=== PATIENT | female | born 1960 | race Caucasian/White ===

== ENCOUNTER → 2017-09-02 09:13 | Outpatient (CLI) | payer OTHER, SELFPAY ==
--- NOTE | 2017-09-02 08:00 | PET_ITS ---
EXAMINATION: FDG PET CT INDICATIONS: A 57-year-old female with reported history of pulmonary nodularity. COMPARISON EXAMINATION: CT of the chest report dated 08/20/17. INDEX LESION SIZE SUV INTERPRETATION Right upper hemithorax pulmonary parenchyma, right upper lobe 25.3 mm (frame 192) 1.0 Quantitative criteria for viable neoplasm are not fulfilled, sequential radiologic investigation recommended TECHNIQUE: Following the intravenous administration of 13.02 mCi of F-18 deoxyglucose via the left antecubital fossa, multiplanar image acquisitions of the neck, chest, abdomen and pelvis to level of mid thigh, obtained at one hour post radiopharmaceutical administration contemporaneously interpreted with the current CT of the neck, chest, abdomen and pelvis to level of mid thigh, dated 09/02/[address] of the chest report dated 08/20/17 reveal: SERUM GLUCOSE LEVEL: 79 mg/dl. HEIGHT: 66 inches. WEIGHT: 138 lbs. FINDINGS: 1. Mild, relatively linear increased glucose concentration is demonstrated in the right upper posterior hemithorax pulmonary parenchyma, right upper lobe generating a calculated maximum standard uptake value of 1.0. The maximal axial diameter of the corresponding parenchymal density on review of CT of the thorax dated 09/02/17 is 25.3 mm (transverse). 2. Normal physiologic distribution of the radiopharmaceutical is apparent in the hepatic (2.3) and splenic parenchyma, both renal units, bladder and visualized intestinal tract. There is uniform distribution of the radiopharmaceutical concentration compared on the cerebellar hemispheres and cerebral cortex. Diffuse intestinal tract activity is noted throughout all four quadrants of the abdominal-pelvic retroperitoneum, mesentery consistent with normal physiologic distribution of the radiopharmaceutical. Prominent glucose metabolism is defined in the anterior neck, laryngeal structures, which appears contiguous to the cricopharyngeus musculature, symmetric in presentation. There is prominent glucose metabolism defined in the descending thoracic aorta. Pertinent CT findings are as follows. CHEST: Marked Emphysematous change is noted in the bilateral upper-lower lung zones. Atherosclerotic calcification is defined in the thoracic aorta without evidence of dilatation, aneurysm formation. Right-left subcentimeter axillary soft tissue densities are non-glucose avid. ABDOMEN AND PELVIS: Atherosclerotic calcification is defined in the abdominal aorta without evidence of dilatation, aneurysm formation. Pelvic arterial calcification is observed. SKELETAL: Degenerative changes defined in the cervical, thoracic and lumbar spine demonstrate no evidence for glucose hypermetabolism. PET/PET/CT Tumor Base -Thigh Init IMPRESSION: 1. NEGATIVE EXAMINATION. There is no definitive quantitative scintigraphic evidence of viable neoplasm. 2. Mild linear increased glucose concentration demonstrated in the right upper hemithorax pulmonary parenchyma, right upper lobe does not fulfill quantitative criteria for viable neoplasm. (Albarran et al, Annals of Internal Medicine, 138:724, 2003). 3. Metabolic and/or anatomic stability may be ensured in the right hemithorax pulmonary parenchymal abnormality with repeat FDG PET study and/or CT of the thorax in three months. (Xiu, Journal of Nuclear Medicine 45:88, P2004. Eloy, Seminars in Thoracic and Cardiovascular Surgery 14:292, 2002). 4. Facilitated glucose concentration observed in the descending thoracic aorta is commensurate with activated leukocytes associated with atherosclerotic plaque formation. (Cj et al, Clinical Nuclear Medicine 29:93, 2004). Electronic Signature Nathaniel Martines D.O. Electronically Signed: Nathaniel Martines DO at 22:41 EST Tel , Service support ,
== END ==
PROVIDERS: Family Provider Nurse Practitioner Family; PCP Nurse Practitioner Family; Visit Provider Nurse Practitioner Family
DX: R91.1 Solitary pulmonary nodule (principal)
CPT/HCPCS: 78815; A9552; A4216

== ENCOUNTER → 2022-12-24 | Outpatient (CLI) | payer BC, SELFPAY ==
--- NOTE | 2022-12-25 05:58 | PFTCOMP ---
COMPLETE PULMONARY FUNCTION TEST INTERPRETATION Brief HPI: Patient is a 62-year-old female, currently under the care of myself, who presents to [facility] for complete pulmonary function tests secondary to diagnosis of COPD. Respiratory therapist reports good effort and reproducible results. Interpretation: Forced expiration spirometry shows a mild large airways obstructive ventilatory defect with an FEV1 of 71% predicted. There is no significant bronchodilator response by strict ATS criteria. Spirograms are of good quality and plateau slowly, indicating slowly emptying areas of the lungs. The respiratory flow volume loop shows decreased expiratory flow rates at all lung volumes consistent with airway obstruction. Lung volumes by body plethysmography show a normal total lung capacity at 5.8 L, 114% predicted. All other lung volumes are within normal limits. Diffusion capacity by carbon monoxide is decreased at 44% predicted. The airway resistance is elevated. No previous pulmonary function tests were available for review. Impression: Irreversible mild large airways obstructive ventilatory defect with a disproportionate reduction in diffusion capacity
== END | disposition home or self-care (01) ==
LOC: PSN 06:34
PROVIDERS: PCP Student in an Organized Health Care Education/Training Program; Referring Provider Internal Medicine Critical Care Medicine; Visit Provider Internal Medicine Critical Care Medicine
DX: J44.9 Chronic obstructive pulmonary disease, unspecified (principal)
CPT/HCPCS: 94060; 94726; 94729

== ENCOUNTER → 2022-12-27 | Outpatient (CLI) | payer BC, SELFPAY ==
[2022-12-27 08:15] VITALS: PULSE 80; PULSE 87; PULSE 94; PULSE 95; PULSE 97; O2SAT 90; O2SAT 92; O2SAT 93; O2SAT 95; O2SAT 96
--- NOTE | 2022-12-28 08:37 | PCM.PSN.6M ---
PSN 6 Minute Walk Test 6 Minute Walk Test 6 Minute Walk Test: 6 Minute Walk Test PSN:6-Minute Walk Test Start: 12/27/22 08:17 Freq: Status: Active Protocol: [id number] Document 12/27/22 08:15 MANUELA (Rec: 12/27/22 08:20 [id number]) 6 Minute Walk Test Date Performed 12/27/22 Time Performed 08:15 Height 5 ft 5 in Weight: 83.915 kg Weight in Pounds 185.[address]: Case Mejia FIO2 (% Oxygen) 21 Assistive device used: None Pre-test Oxygen Delivery Method Room Air Pulse Ox (%) 96 Pulse Rate (60-100 beats/min) 80 Dyspnea Hung Scale (0-10) 0 Exertion Hung Scale (6-20) 6 1st minute Oxygen Delivery Method Room Air Pulse Ox (%) 95 Pulse Rate (60-100 beats/min) 94 2nd minute Oxygen Delivery Method Room Air Pulse Ox (%) 92 Pulse Rate (60-100 beats/min) 95 3rd minute Oxygen Delivery Method Room Air Pulse Ox (%) 92 Pulse Rate (60-100 beats/min) 94 4th minute Oxygen Delivery Method Room Air Pulse Ox (%) 93 Pulse Rate (60-100 beats/min) 80 5th minute Oxygen Delivery Method Room Air Pulse Ox (%) 90 Pulse Rate (60-100 beats/min) 97 6th minute Oxygen Delivery Method Room Air Pulse Ox (%) 93 Pulse Rate (60-100 beats/min) 97 Post-test Oxygen Delivery Method Room Air Pulse Ox (%) 96 Pulse Rate (60-100 beats/min) 87 Dyspnea Hung Scale (0-10) 2 Exertion Hung Scale (6-20) 6 Full Laps Walked 21 Partial Lap, Number of Tiles Walked 8 Total Distance Walked (ft) 1247 Interpretation Interpretation: The patient was able to travel 1247 feet over the course of 6 minutes on room air with no assistive devices or breaks. The patient did experience significant desaturation from a baseline of 96% to as low as 90%. No significant tachycardia was noted. These findings are consistent with a respiratory limitation exercise tolerance. Recommendations Recommendations: No supplemental oxygen is indicated at this time. However, patient will need to be followed closely given level of desaturation.
== END | disposition home or self-care (01) ==
LOC: PSN 07:51
PROVIDERS: PCP Student in an Organized Health Care Education/Training Program; Referring Provider Internal Medicine Critical Care Medicine; Visit Provider Internal Medicine Critical Care Medicine
DX: J44.9 Chronic obstructive pulmonary disease, unspecified (principal)
CPT/HCPCS: 94618

== ENCOUNTER 2023-05-10 06:49 | Outpatient (CLI) | payer BC, SELFPAY ==
--- NOTE | 2023-05-10 06:54 | CT_ITS ---
ACR Level 3 findings have been noted. An addendum which confirms receipt of the report will follow. STUDY: LOW DOSE CT LUNG CANCER SCREENING REASON FOR EXAM: Female, 63 years old. smoker RADIATION DOSAGE (If Supplied By Facility): CTDIvol = ( 3.02 ) mGy, DLP = ( 99.68 ) mGycm TECHNIQUE: No contrast was administered. Low dose technique was utilized (average mAS-38 and kVp 120). 1.25 mm axial source images with a slice interval of 1.25-mm were reconstructed in lung windows with coronal sagittal reformats. COMPARISON: PET CT September 02, 2017 NODULES: Parenchyma: Chronic left posterior apical surgical suture noted. There is new consolidation in the lateral left upper lobe with new bronchiectasis and volume loss, obscuring assessment for nodularity. Severe diffuse emphysematous change with large apical bulla. Nodular scarring along the posterior right upper lobe 1.4 cm in thickness is unchanged from September 02, 2017 PET/CT without previous FDG avidity. No new or enlarging nodularity within the remainder of the lungs. Endobronchial lesion: No endobronchial lesion. Minimal diffuse peribronchial thickening. Aorta: Mild aortic atherosclerosis without ectasia. CORONARY ARTERIES: Coronary artery calcification. No densely calcified coronary atherosclerosis. Heart: No cardiomegaly or pericardial effusion. Pulmonary artery: No pulmonary arterial enlargement. Mediastinal nodes: No mediastinal or hilar adenopathy. Other chest and abdominal findings: No acute upper abdominal finding. Small hiatal hernia. Esophagus is unremarkable. Imaged thyroid is unremarkable. CT/Low Dose CT Lung Screening IMPRESSION: New left superior upper lobe consolidation concerning for pneumonia with underlying bronchiectasis. Correlate with exam. This makes screening for lung cancer incomplete. Pulmonary follow-up is recommended with repeat CT screening in 1-3 months. No significant interval change in nodular scarring in the posterior right upper lobe compared with prior PET/CT Severe emphysematous change. Small hiatal hernia. Lung-RADS category 0 - Additional lung cancer screening CT images and/or comparison to prior chest CT examination is needed. IMPORTANT NOTES FOR USE: ACR Lung-RADS Version 1.1 Assessment Categories Release Date: 2018 Category: Coded 0-4 bases on nodule(s) with highest degree of suspicion. Negative screen is defined as categories 1 and 2; a positive screen is defined as categories 3 and 4. Category 3 and 4A nodules that are unchanged on interval CT should be coded as category 2, and individuals returned to screening in 12 months. Category 4X: Category 3 or 4 nodules with additional imaging findings that increase the suspicion of lung cancer, such as spiculation, GGN that doubles in size in 1 year, enlarged lymph notes, etc. Category Modifiers: S (significant finding unrelated to lung cancer) Electronically Signed: Sukhjinder Nguyen MD at 8:14 EDT ,
== END 2023-05-10 23:59 | disposition home or self-care (01) ==
LOC: CT 06:50
PROVIDERS: PCP Student in an Organized Health Care Education/Training Program; Referring Provider Nurse Practitioner Acute Care; Visit Provider Nurse Practitioner Acute Care
DX: Z12.2 Encounter for screening for malignant neoplasm of respiratory organs (principal); F17.210 Nicotine dependence, cigarettes, uncomplicated
CPT/HCPCS: 71271

== ENCOUNTER → 2024-05-20 | Outpatient (CLI) | payer BC, SELFPAY ==
--- NOTE | 2024-05-20 06:54 | CT_ITS ---
STUDY: LOW DOSE CT LUNG CANCER SCREENING REASON FOR EXAM: Female, 64 years old. Former smoker. The patient smoked 1 pack per day for 30 years. RADIATION DOSAGE (If Supplied By Facility): CTDIvol = ( 3.02 ) mGy, DLP = ( 110.23 ) mGycm TECHNIQUE: No contrast was administered. Low dose technique was utilized (average mAS-38 and kVp 120). 1.25 mm axial source images with a slice interval of 1.25-mm were reconstructed in lung windows. 2.5 mm axial source images with a slice interval of 2.5-mm were reconstructed in lung windows. 5.0 mm axial source images with a slice interval of 5.0-mm were reconstructed in soft tissue windows. COMPARISON: Comparison is made with prior study May 10, 2023. NODULES: No suspicious nodules are seen. Emphysema: Hyperinflation. Diffuse emphysematous changes worse in the upper lobes with bullous formation. Stable scarring and bronchiectasis and soft tissue prominence in both lung apices worse on the left side. Focal thickening along the right minor fissure. Endobronchial lesion: None Aorta: Atherosclerotic plaque formation of the aortic arch. CORONARY ARTERIES: Coronary artery calcification is seen. Heart: Unremarkable Pulmonary artery: Unremarkable Mediastinal nodes: Unremarkable Other chest and abdominal findings: CT/Low Dose CT Lung Screening IMPRESSION: Lung-RADS category 2 - Continue annual screening with LDCT in 12 months. IMPORTANT NOTES FOR USE: ACR Lung-RADS Version 1.1 Assessment Categories Release Date: 2018 Category: Coded 0-4 bases on nodule(s) with highest degree of suspicion. Negative screen is defined as categories 1 and 2; a positive screen is defined as categories 3 and 4. Category 3 and 4A nodules that are unchanged on interval CT should be coded as category 2, and individuals returned to screening in 12 months. Category 4X: Category 3 or 4 nodules with additional imaging findings that increase the suspicion of lung cancer, such as spiculation, GGN that doubles in size in 1 year, enlarged lymph notes, etc. Category Modifiers: S (significant finding unrelated to lung cancer) Electronically Signed: Jose Manuel Metz MD at 10:42 EST ,
== END | disposition home or self-care (01) ==
PROVIDERS: PCP Student in an Organized Health Care Education/Training Program; Referring Provider Nurse Practitioner Acute Care; Visit Provider Nurse Practitioner Acute Care
DX: F17.210 Nicotine dependence, cigarettes, uncomplicated (principal)
CPT/HCPCS: 71271

== ENCOUNTER → 2024-12-25 | Outpatient (CLI) | payer BC, SELFPAY ==
--- OUTSIDE RECORDS SUMMARY | 2024-12-25 08:25 | XMS RPT_ITS | CCD ---
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 Case Mejia Attending Provider [phone] Case Mejia Referring Provider [phone] Case Mejia Other Provider Dr. Paty Veronica Primary Care Provider [phone] Clayton GALE, GREASE MAN-C Rochelle Referring Provider [phone] Dr. Case Mejia Attending Provider [phone] Paty Veronica Primary Care Provider [phone] Dr. Paty Veronica Referring Provider [phone] Cierra GREASE MAN, GREASE MAN-C Gay Attending Provider [phone] PATY VERONICA Attending Unavailable HALKO, PATY Primary Care Unavailable HALKO, PATY Attending Unavailable HALKO, PATY Primary Care Unavailable EDNA CHANG DO Attending Unavailable HALKO, PATY Primary Care Unavailable HALKO, PATY Attending Unavailable HALKO, PATY Primary Care Unavailable HALKO DO, PATY Primary Care Unavailable HALKO DO, PATY Attending Unavailable HALKO DO, PATY Primary Care Unavailable HALKO DO, PATY Attending Unavailable HALKO DO, PATY Attending Unavailable HALKO DO, PATY Primary Care Unavailable HALKO DO, PATY Attending Unavailable HALKO DO, PATY Primary Care Unavailable HALKO DO, PATY Attending Unavailable HALKO DO, PATY Primary Care Unavailable HALKO DO, PATY Primary Care Unavailable HALKO DO, PATY Attending Unavailable Gay Norton Attending Unavailable Gay Norton Referring Unavailable Halko, Paty Primary Care Unavailable Carolyne Johnson Attending Unavailable Carolyne Johnson Referring Unavailable Halko, Paty Primary Care Unavailable Carolyne Johnson Attending Unavailable Carolyne Johnson Referring Unavailable Paty Veronica Primary Care Unavailable Carolyne Johnson Attending Unavailable Paty Veronica Referring Unavailable Paty Veronica Primary Care Unavailable Medications Current Medications Medication Drug Class(es) Dates Sig (Normalized) Sig (Original) Albuterol (12 sources) beta2-Adrenergic Agonist Start: 05-01-2024 take 2 puff(s) by inhalation four times daily as needed for wheezing Ventolin HFA MDI (90 mcg/inh) inhalation aerosol 2 puff(s), Inhalation, QID, PRN as needed for wheezing, # 6.7 gram(s), 5 Refill(s), Pharmacy: [facility], 161, cm, 12/11/23 14:16:00 EDT, Height, kg, 12/11/23 14:16:00 EDT, Dosing Weight Start Date: 05/01/24 Status: Ordered Quantity: 6.7 Unit: g Repeat number: 6 Start: 08-16-2023 take 2 puff(s) by in halation four times daily as needed for wheezing Ventolin HFA MDI (90 mcg/inh) inhalation aerosol 2 puff(s), Inhalation, QID, PRN as needed for wheezing, # 6.7 gram(s), 5 Refill(s), Pharmacy: [facility], 165, cm, 08/16/23 10:41:00 EST, Height, kg, 08/16/23 10:41:00 EST, Dosing Weight Start Date: 08/16/23 Status: Ordered Start: 07-30-2022 take 1 puff(s) by in halation every six hours Albuterol Sulfate (Ventolin Hfa) 90 mcg/actuation HFA aerosol inhaler Active 2 PUFF INHALATION EVERY 6 HOURS July 30, 2022 12:00am Start: 05-02-2022 End: 10-29-2022 take 2 puff(s) by inhalation four times daily as needed for wheezing Ventolin HFA MDI (90 mcg/inh) inhalation aerosol 2 puff(s), Inhalation, QID, PRN as needed for wheezing, # 1 EA, 5 Refill(s), Pharmacy: [facility], 165, cm, 05/02/22 7:53:00 EDT, Height, kg, 05/02/22 7:53:00 EDT, Dosing Weight Start Date: 05/02/22 Stop Date: 10/29/22 Status: Ordered Start: 10-31-2021 End: 04-29-2022 take 2 puff(s) by inhalation four times daily as needed for wheezing Ventolin HFA MDI (90 mcg/inh) inhalation aerosol 2 puff(s), Inhalation, QID, PRN as needed for wheezing, # 1 EA, 5 Refill(s), Pharmacy: [facility], 165, cm, 10/31/21 9:07:00 EDT, Height, kg, 10/31/21 9:07:00 EDT, Dosing Weight Start Date: 10/31/21 Stop Date: 04/29/22 Status: Ordered Ascorbic Acid (3 sources) Vitamin C Start: 07-30-2022 take 1 g by mouth every six hours Ascorbic Acid (Vitamin C) Active 1 GM PO EVERY 6 HOURS July 30, 2022 12:00am Start: 07-30-2022 take 1 g by mouth ev jessica six hours Ascorbic Acid (Vitamin C) Active 1 GM PO EVERY 6 HOURS July 30, 2022 1:00am aspirin 81 mg chewable tablet (12 sources) Platelet Aggregation Inhibitor, Nonsteroidal Anti-inflammatory Drug Start: 07-30-2022 take 1 tablet by mouth once daily Aspirin (Children's Aspirin) 81 mg tablet,chewable Active 81 MG PO DAILY July 30, 2022 12:00am Start: 12-26-2019 aspirin 81 mg oral tablet (chewable) Dose : 81 mg = 1 tab(s), Oral, qDay, # 30 tab(s), 0 Refill(s) Start Date: 12/26/19 Status: Ordered Quantity: 30.0 Unit: tab(s) Repeat number: 1 Calcium 600+D Plus Minerals (9 sources) Start: 05-02-2021 Calcium 600+D Plus Minerals Dose = 1 tab(s), Chewed, qDay, 0 Refill(s) Start Date: 05/02/21 Status: Ordered Repeat number: 1 Start: 05-02-2021 Calcium 600+D Plus Minerals Dose = 1 tab(s), Chewed, qDay, 0 Refill(s) Start Date: 05/02/21 Status: Ordered Calcium Carb-Mag Ox-Zinc Gluc (1 source) Start: 04-17-2023 Calcium Carb-M ag Ox-Zinc Gluc Active TABLET PO April 16, 2023 11:00pm Calcium, Magnesium and Zinc oral tablet (7 sources) Start: 05-02-2022 take 1 tablet by mouth once daily Calcium, Magnesium and Zinc oral tablet Dose = 1 tab(s), Oral, qDay, # 30 tab(s), 0 Refill(s) Start Date: 05/02/22 Status: Ordered Quantity: 30.0 Unit: tab(s) Repeat number: 1 Start: 05-02-2022 take 1 tablet by soledad th once daily Calcium, Magnesium and Zinc oral tablet Dose = 1 tab(s), Oral, qDay, # 30 tab(s), 0 Refill(s) Start Date: 05/02/22 Status: Ordered cholecalciferol 0.025 mg oral capsule (3 sources) Vitamin D Start: 07-30-2022 take 25 ug by mouth once daily Cholecalciferol (Vitamin D3) Active 25 MCG PO DAILY July 30, 2022 12:00am dextromethorphan hydrobromide 3 mg/ml / promethazine hydrochloride 1.25 mg/ml oral solution (3 sources) Phenothiazine, Uncompetitive [id number]-quuahp-Z-asparta te Receptor Antagonist, Sigma-1 Agonist Start: 06-06-2021 take 1 dose by mouth every six hours as needed for cough dextromethorphan-pro methazine 15 mg-6.25 mg/5 mL oral syrup Dose = 5 mL, Oral, q6h, PRN for cough, # 120 mL, 0 Refill(s), Pharmacy: [facility]12, 166, cm, 05/02/21 9:00:00 EDT, Height, kg, 05/02/21 9:00:00 EDT, Dosing Weight Start Date: 06/06/21 Status: Ordered Fluticasone-Umeclidin -Vilanter (1 source) Anticholinergic, Corticosteroid, beta2-Adrenergic Agonist Start: 01-14-2023 Fluticasone-Umeclidi n-Vilanter (Trelegy Ellipta) 100-62.5-25 mcg blister with device Active 1 INH INHALATION DAILY 60 January 13, 2023 11:00pm 12 hr guaiFENesin 600 mg extended release oral tablet (12 sources) Start: 07-13-2024 take 1 mg by mouth every twelve hours Mucinex 600 mg oral tablet, extended release mg = tab(s), Oral, q12h, 0 Refill(s) Start Date: 07/13/24 Status: Ordered Repeat number: 1 Start: 08-16-2023 End: 02-12-2024 Mucinex 600 mg oral tablet, extended release Dose : 600 mg = 1 tab(s), Oral, q12h, X 90 day(s), # 180 tab(s), 1 Refill(s), 02/12/24 11:08:00 AM EDT, Pharmacy: [facility], 165, cm, 08/16/23 10:41:00 EST, Height, kg, 08/16/23 10:41:00 EST, Dosing Weight Start Date: 08/16/23 Stop Date: 02/12/24 Status: Ordered Start: 04-17-2023 take 1 mg by mouth e very twelve hours Guaifenesin (Mucus Relief Er) 600 mg tablet extended release 12hr Active MG PO April 16, 2023 11:00pm Start: 05-02-2022 End: 10-29-2022 take 1 tablet by mouth twice daily, then take 1 tablet by mouth every twelve hours Guaifenesin (Mucinex) 600 mg tablet extended release 12hr Discontinued 600 MG PO TWICE A DAY July 30, 2022 12:00am July 31, 2022 7:44am herbal/nutritional product (4 sources) Start: 07-13-2024 herbal/nutriti onal product Smarter Greens - digestion, increase nitric oxide, 0 Refill(s) Start Date: 07/13/24 Status: Ordered Repeat number: 1 Start: 07-13-2024 herbal/nutriti onal product Total Beets - blood pressure support, 0 Refill(s) Start Date: 07/13/24 Status: Ordered Repeat number: 1 ibuprofen 200 mg oral capsule (12 sources) Nonsteroidal Anti-inflammatory Drug Start: 01-31-2021 take 1 capsule by mouth every six hours ibuprofen 200 mg oral capsule See Instructions, cap(s) mg Oral q6hr, 0 Refill(s) Start Date: 01/31/21 Status: Ordered Repeat number: 1 mag well (6 sources) Start: 06-20-2020 mag well mag well, 0 Refill(s), 78.2 Start Date: 06/20/20 Status: Ordered magnesium oxide 400 mg oral tablet (11 sources) Start: 05-02-2022 magnesium oxide 400 mg oral tablet Dose : 400 mg = 1 tab(s), Oral, qDay, 0 Refill(s) Start Date: 05/02/22 Status: Ordered Repeat number: 1 Start: 05-02-2021 Magnesium 250 mg tablet Dose : 250 mg = 1 tab(s), Oral, qDay, 0 Refill(s) Start Date: 05/02/21 Status: Ordered Multivitamin preparation (12 sources) Start: 07-30-2022 take 1 tablet by mouth once daily Multivitamin Active 1 TABLET PO DAILY July 30, 2022 12:00am Start: 07-30-2022 take 1 tablet by soledad th once daily Multivitamin Active 1 TABLET PO DAILY July 30, 2022 1:00am Start: 12-12-2020 take 1 tablet by soledad th once daily Multivitamin Dose = 1 tab(s), Oral, Daily, 0 Refill(s) Start Date: 12/12/20 Status: Ordered Repeat number: 1 Start: 12-12-2020 take 1 tablet by soledad th once daily Multivitamin Dose = 1 tab(s), Oral, Daily, 0 Refill(s) Start Date: 12/12/20 Status: Ordered Multivitamin With Minerals (3 sources) Start: 07-30-2022 take 1 capsule by mouth once daily Multivitamin With Minerals Active 1 CAP PO DAILY July 30, 2022 12:00am Start: 07-30-2022 take 1 capsule by mo uth once daily Multivitamin With Minerals Active 1 CAP PO DAILY July 30, 2022 1:00am Multivitamin-Calcium Carb-Ir on (3 sources) Start: 07-30-2022 Multivitamin-C alcium Carb-Iron Active TABLET PO July 30, 2022 12:00am Start: 07-30-2022 Multivitamin-C alcium Carb-Iron Active TABLET PO July 30, 2022 1:00am ofloxacin 3 mg/ml ophthalmic solution (2 sources) Quinolone Antimicrobial Start: 08-20-2024 ofloxacin 0.3% ophthalmic solution INSTILL 1 DROP INTO RIGHT EYE 4 TIMES DAILY 3 DAYS PRIOR TO SURGERY AND CONTINUING 4 TIMES DAILY AFTER SURGERY Start Date: 08/20/24 Status: Ordered Repeat number: 1 rosuvastatin calcium 20 mg oral tablet (3 sources) HMG-CoA Reductase Inhibitor Start: 07-13-2024 rosuvastatin 20 mg oral tablet Dose : 20 mg = 1 tab(s), Oral, qHS, # 90 tab(s), 1 Refill(s), Pharmacy: [facility], 161, cm, 07/13/24 13:30:00 EST, Height, kg, 07/13/24 13:30:00 EST, Dosing Weight Start Date: 07/13/24 Status: Ordered Quantity: 90.0 Unit: tab(s) Repeat number: 2 sodium polystyrene sulfonate 250 mg/ml oral suspension (2 sources) Start: 10-19-2024 End: 02-07-2025 take 1 dose by mouth once daily sodium polystyrene sulfonate 15 g/60 mL oral and rectal suspension Dose : 3.75 gram(s) = 15 mL, Oral, qDay, X 30 day(s), # 450 mL, 2 Refill(s), 02/07/25 2:52:00 PM EDT, Pharmacy: [facility], 161.2, cm, 11/09/24 14:14:00 EDT, Height, kg, 11/09/24 14:14:00 EDT, Dosing Weight Start Date: 11/09/24 Stop Date: 02/07/25 Status: Ordered Quantity: 450.0 Unit: mL Repeat number: 3 SUPREP magnesium sulfate/potassium sulfate/sodium sulfate 1.6 g-3.13 g-17.5 g/177 mL oral liquid (3 sources) Start: 08-28-2023 SUPREP magnesi um sulfate/potassium sulfate/sodium sulfate 1.6 g-3.13 g-17.5 g/177 mL oral liquid as directed, Oral, AsDirected, PRN bowel preparation, Take day before colonoscopy as directed, instructions given by office, # 354 mL, 0 Refill(s), Pharmacy: [facility], 165, cm, 08/28/23 10:28:00 EST, Height, kg, 08/28/23 10:28:00 EST, Dosing Weight Start Date: 08/28/23 Status: Ordered tumeric (1 source) Start: 04-17-2023 tumeric Active PO April 16, 2023 11:00pm turmeric extract 500 mg oral capsule (6 sources) Start: 08-16-2023 turmeric 500 m g oral capsule Dose : 500 mg = 1 cap(s), Oral, Daily, 0 Refill(s) Start Date: 08/16/23 Status: Ordered Repeat number: 1 Vitamin C 1000 mg oral tablet (8 sources) Start: 05-02-2022 Vitamin C 1000 mg oral tablet Dose : 1,000 mg = 1 tab(s), Oral, qDay, # 30 tab(s), 0 Refill(s) Start Date: 05/02/22 Status: Ordered Quantity: 30.0 Unit: tab(s) Repeat number: 1 Start: 05-02-2022 Vitamin C 1000 mg oral tablet Dose : 1,000 mg = 1 tab(s), Oral, qDay, # 30 tab(s), 0 Refill(s) Start Date: 05/02/22 Status: Ordered Vitamin D3 25 mcg (1000 intl units) oral capsule (9 sources) Start: 05-02-2021 take 1 capsule by mouth once daily Vitamin D3 25 mcg (1000 intl units) oral capsule See Instructions, 1 cap(s) Oral Daily, 0 Refill(s) Start Date: 05/02/21 Status: Ordered Repeat number: 1 Start: 05-02-2021 take 1 capsule by [facility] once daily Vitamin D3 25 mcg (1000 intl units) oral capsule See Instructions, 1 cap(s) Oral Daily, 0 Refill(s) Start Date: 05/02/21 Status: Ordered Start: 05-02-2021 Vitamin D3 25 mcg (1000 intl units) oral capsule Dose : 1,000 unit(s) = 1 cap(s), Oral, Daily, 0 Refill(s) Start Date: 05/02/21 Status: Ordered Completed/Discontinued Medications Medication Drug Class(es) Dates Sig (Normalized) Sig (Original) fluconazole 150 mg oral tablet (5 sources) Azole Antifungal Start: 05-02-2022 End: 04-17-2023 take 150 mg by mouth every week Fluconazole Discontinued 150 MG PO EVERY WEEK July 30, 2022 12:00am April 17, 2023 7:00am omeprazole 40 mg delayed release oral capsule (12 sources) Proton Pump Inhibitor Start: 08-16-2023 End: 02-12-2024 omeprazole 40 mg oral delayed release capsule Dose : 40 mg = 1 cap(s), Oral, qDay, # 90 cap(s), 1 Refill(s), Pharmacy: [facility], 165, cm, 08/16/23 10:41:00 EST, Height, kg, 08/16/23 10:41:00 EST, Dosing Weight Start Date: 08/16/23 Stop Date: 02/12/24 Status: Ordered Quantity: 90.0 Unit: cap(s) Repeat number: 2 Start: 05-02-2022 End: 10-29-2022 take 40 mg by mouth once daily Omeprazole Active 40 MG PO DAILY July 30, 2022 12:00am Start: 10-31-2021 End: 04-29-2022 omeprazole 40 mg oral delaye d release capsule Dose : 40 mg = 1 cap(s), Oral, qDay, # 90 cap(s), 1 Refill(s), Pharmacy: [facility], 165, cm, 10/31/21 9:07:00 EDT, Height, kg, 10/31/21 9:07:00 EDT, Dosing Weight Start Date: 10/31/21 Stop Date: 04/29/22 Status: Ordered Tiotropium Newfane (9 sources) Anticholinergic Start: 07-31-2022 End: 01-14-2023 take 1 puff(s) by inhalation once daily Tiotropium Newfane (Spiriva Respimat) 2.5 mcg/actuation mist Discontinued 2 PUFF INHALATION DAILY July 31, 2022 7:59am January 14, 2023 6:59am Start: 07-31-2022 take 1 puff(s) by in halation once daily Tiotropium Newfane (Spiriva Respimat) 2.5 mcg/actuation mist Active 2 PUFF INHALATION DAILY July 31, 2022 8:59am Start: 07-30-2022 End: 07-31-2022 take 1 puff(s) by inhalation once daily Tiotropium Newfane (Spiriva Respimat) 2.5 mcg/actuation mist Discontinued 2 PUFF INHALATION DAILY July 30, 2022 12:00am July 31, 2022 8:03am Start: 05-02-2022 End: 10-29-2022 Spiriva Respimat 10 ACT 2.5 mcg/inh inhalation aerosol 2 puff(s), Inhalation, qDay, # 3 EA, 1 Refill(s), Pharmacy: [facility], 165, cm, 05/02/22 7:53:00 EDT, Height, kg, 05/02/22 7:53:00 EDT, Dosing Weight Start Date: 05/02/22 Stop Date: 10/29/22 Status: Ordered Start: 10-31-2021 End: 04-29-2022 Spiriva Respimat 10 ACT 2.5 mcg/inh inhalation aerosol 2 puff(s), Inhalation, qDay, # 3 EA, 1 Refill(s), Pharmacy: [facility], 165, cm, 10/31/21 9:07:00 EDT, Height, kg, 10/31/21 9:07:00 EDT, Dosing Weight Start Date: 10/31/21 Stop Date: 04/29/22 Status: Ordered Trelegy Ellipta 100 mcg-62.5 mcg-25 mcg/inh inhalation powder (6 sources) Start: 08-16-2023 End: 02-12-2024 take 1 dose by mouth once daily Trelegy Ellipta 100 mcg-62.5 mcg-25 mcg/inh inhalation powder Dose = 1 puff(s), Inhalation, qDay, at the same time every day. Following administration, rinse mouth with water after use (do not swallow)., # 3 EA, 1 Refill(s), Pharmacy: [facility], 165, cm, 08/16/23 10:41:00 EST, Height, kg, 08/16/23 10:41:00 EST, Dosing Weight Start Date: 08/16/23 Stop Date: 02/12/24 Status: Ordered Quantity: 3.0 Unit: EA Repeat number: 2 Start: 08-16-2023 End: 02-12-2024 take 1 dose by mouth once daily Trelegy Ellipta 100 mcg-62.5 mcg-25 mcg/inh inhalation powder Dose = 1 puff(s), Inhalation, qDay, at the same time every day. Following administration, rinse mouth with water after use (do not swallow)., # 3 EA, 1 Refill(s), Pharmacy: [facility], 165, cm, 08/16/23 10:41:00 EST, Height, kg, 08/16/23 10:41:00 EST, Dosing Weight Start Date: 08/16/23 Stop Date: 02/12/24 Status: Ordered Problems Problem Classification Problem Date Documented Date Episodic/Chronic Anxiety disorders (9 sources) Anxiety 01-21-2020 Chronic Asthma (9 sources) Asthma-chronic obstructive pulmonary disease overlap syndrome; Translations: [Asthma-chronic obstructive pulmonary disease overlap syndrome] 01-14-2023 Chronic Cardiac dysrhythmias (9 sources) Palpitations 12-12-2020 Episodic Chronic obstructive pulmonary disease and bronchiectasis (20 sources) Chronic obstructive lung disease; Translations: [Chronic bronchitis] Onset: 12-18-2024 01-21-2020 Chronic Coronary atherosclerosis and other heart disease (3 sources) Coronary arteriosclerosis 07-13-2024 Chronic Diabetes mellitus without complication (10 sources) Impaired fasting glycemia; Translations: [Impaired fasting glucose] Onset: 12-06-2021 Episodic Esophageal disorders (9 sources) Gastroesophageal reflux disease 06-20-2020 Chronic Mycoses (8 sources) Onychomycosis 05-02-2022 Episodic Nutritional deficiencies (6 sources) Vitamin D deficiency 08-16-2023 Chronic Other bone disease and musculoskeletal deformities (9 sources) Osteopenia 02-20-2021 Episodic Other connective tissue disease (9 sources) Plantar fasciitis 10-31-2021 Episodic Other female genital disorders (9 sources) Lesion of cervix 01-31-2021 Episodic Other lower respiratory disease (12 sources) Organized pneumonia; Translations: [Other specified interstitial pulmonary diseases] 12-12-2020 Chronic Other lower respiratory disease (1 source) Other specified interstitial pulmonary diseases; 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] 01-14-2023 Chronic Other lower respiratory disease (1 source) Imaging of lung abnormal 02-10-2020 Episodic Other lower respiratory disease (9 sources) Lung mass 11-13-2019 Episodic Other lower respiratory disease (9 sources) Pleuritic pain 01-21-2020 Episodic Other lower respiratory disease (9 sources) Rib pain 02-10-2020 Episodic Other nutritional; endocrine; and metabolic disorders (3 sources) Body mass index 30+ - obesity 08-16-2023 Chronic Other nutritional; endocrine; and metabolic disorders (3 sources) Obesity 08-16-2023 Chronic Other nutritional; endocrine; and metabolic disorders (1 source) Body mass index 25-29 - overweight 10-31-2021 Episodic Other nutritional; endocrine; and metabolic disorders (8 sources) Overweight 05-02-2022 Episodic Other nutritional; endocrine; and metabolic disorders (2 sources) Overweight in adulthood with body mass index of 25 or more but less than 30 05-02-2022 Episodic Other screening for suspected conditions (not mental disorders or infectious disease) (1 source) Viral screening status 12-12-2020 Episodic Other skin disorders (8 sources) Bilateral ingrowing nail of toe of feet 05-02-2022 Episodic Residual codes; unclassified (9 sources) Family history of malignant neoplasm of uterus 01-31-2021 Episodic Residual codes; unclassified (9 sources) Immunization due 06-20-2020 Episodic Residual codes; unclassified (6 sources) Screening due 08-16-2023 Episodic Screening and history of mental health and substance abuse codes (9 sources) Ex-smoker 12-12-2020 Episodic Substance-related disorders (3 sources) Cigarette smoker ; Translations: [Nicotine dependence, cigarettes, uncomplicated] Onset: 05-28-2024 04-17-2023 Chronic Unclassified (9 sources) Cancer cervix screening status 01-31-2021 Unclassified (20 sources) Patient encounter status 12-12-2020 Viral infection (3 sources) Viremia 12-11-2023 Episodic Results Test Name Value Interpretation Reference Range Facility .GFRon 10-29-2024 Estimated Glomerular Filtration Rate 92 ml/min/1.73sqm Normal [facility] Comment on above: Result Comment: Stages of Chronic Kidney Disease (CKD) Stage Description eGFR(ml/min/1.73 sq.m.) CKD 1 Normal kidney function or >=90 normal kindney function with possible kidney damage (ex. Proteinuria) CKD 2 Kidney damage with mild loss 60-89 of kidney function CKD 3a Mild to moderate loss of kidney 45-59 function CKD 3b Moderate to severe loss of 30-44 of kindey function CKD 4 Severe loss of kidney function 15-29 CKD 5 Kidney failure <15 Note: (go live 2024) the eGFR calculation was updated to the 2020 CKD-EPI creatinine equation without a race factor to calculate the eGFR results. Performed By: #### Darcy CARMONA, BMP #### [address] [address] BMPon 10-29-2024 BUN/Creatinine Ratio 27 ratio Normal 7-27 [facility] Comment on above: Performed By: #### Darcy CARMONA, BMP #### [address] [address] Calcium [Mass/Vol] 9.3 mg/dL Normal 8.4-10.2 [facility] Comment on above: Performed By: #### Darcy CARMONA, BMP #### [address] [address] Chloride [Moles/Vol] 107 mmol/L Normal 98-107 [facility] Comment on above: Performed By: #### Darcy CARMONA, BMP #### [address] [address] CO2 [Moles/Vol] 31 mmol/L Normal 23-31 [facility] Comment on above: Performed By: #### Darcy CARMONA, BMP #### [address] [address] Creatinine [Mass/Vol] 0.73 mg/dL Normal 0.51-0.95 [facility] Comment on above: Performed By: #### Darcy CARMONA, BMP #### [address] [address] Electrolyte Balance 7.0 mEq/L Normal 4.0-15.0 [facility] Comment on above: Performed By: #### Darcy CARMONA, BMP #### [address] [address] Glucose [Mass/Vol] 113 mg/dL Normal 80-115 [facility] Comment on above: Performed By: #### Darcy CARMONA, BMP #### [address] [address] Potassium [Moles/Vol] 5.3 mmol/L High 3.5-5.1 [facility] Comment on above: Performed By: #### G , BMP #### [id number] [place], [place] [address] Sodium [Moles/Vol] 145 mmol/L Normal 136-145 [facility] Comment on above: Performed By: #### G FR, BMP #### [id number] [place], [place] [address] Urea nitrogen [Mass/Vol] 20 mg/dL High 7-18 [facility] Comment on above: Performed By: #### G , BMP #### [id number] [place], [place] [address] LABORATORYOrdered By: SYSTEM SYSTEM on 10-29-2024 Calcium [Mass/Vol] 9.3 mg/dL Normal 8.4 - 10. 2 mg/dL AO ADM SS Chloride [Moles/Vol] 107 mmol/L Normal 98 - 10 7 mmol/L AO ADM SS CO2 [Moles/Vol] 31 mmol/L Normal 23 - 31 mmol/L AO ADM SS Creatinine [Mass/Vol] 0.73 mg/dL Normal 0.51 - 0.95 mg/dL AO ADM SS Electrolyte Balance 7.0 mEq/L Normal 4.0 - 15 .0 mEq/L AO ADM SS Estimated Glomerular Filtration Rate 92 ml/min/1.73sqm Invalid Interpretation Code AO Chemistry S Comment on above: Interpretive Data: Stages of Chronic Kidney Disease (CKD) Stage Description eGFR(ml/min/1.73 sq.m.) CKD 1 Normal kidney function or >=90 normal kindney function with possible kidney damage (ex. Proteinuria) CKD 2 Kidney damage with mild loss 60-89 of kidney function CKD 3a Mild to moderate loss of kidney 45-59 function CKD 3b Moderate to severe loss of 30-44 of kindey function CKD 4 Severe loss of kidney function 15-29 CKD 5 Kidney failure <15 Note: (go live 2024) the eGFR calculation was updated to the 2020 CKD-EPI creatinine equation without a race factor to calculate the eGFR results. Glucose [Mass/Vol] 113 mg/dL Normal 80 - 115 mg/dL AO ADM SS Potassium [Moles/Vol] 5.3 mmol/L High 3.5 - 5.1 mmol/L AO ADM SS Sodium [Moles/Vol] 145 mmol/L Normal 136 - 145 mmol/L AO ADM SS Urea nitrogen [Mass/Vol] 20 mg/dL High 7 - 18 mg/dL AO ADM SS Urea nitrogen/Creatinine [Mass ratio] 27 ratio Normal 7 - 27 ratio AO ADM SS .GFRon 10-16-2024 Estimated Glomerular Filtration Rate 69 ml/min/1.73sqm Normal [facility] Comment on above: Result Comment: Stages of Chronic Kidney Disease (CKD) Stage Description eGFR(ml/min/1.73 sq.m.) CKD 1 Normal kidney function or >=90 normal kindney function with possible kidney damage (ex. Proteinuria) CKD 2 Kidney damage with mild loss 60-89 of kidney function CKD 3a Mild to moderate loss of kidney 45-59 function CKD 3b Moderate to severe loss of 30-44 of kindey function CKD 4 Severe loss of kidney function 15-29 CKD 5 Kidney failure <15 Note: (go live 2024) the eGFR calculation was updated to the 2020 CKD-EPI creatinine equation without a race factor to calculate the eGFR results. Performed By: #### G , BMP #### [address] [address] BMPon 10-16-2024 BUN/Creatinine Ratio 24 ratio Normal 7-27 [facility] Comment on above: Performed By: #### G , BMP #### [address] [address] Calcium [Mass/Vol] 9.3 mg/dL Normal 8.4-10.2 [facility] Comment on above: Performed By: #### G FR, BMP #### [id number] [place], [place] [address] Chloride [Moles/Vol] 110 mmol/L High 98-107 [facility] Comment on above: Performed By: #### G FR, BMP #### [address] [place], [place] [address] CO2 [Moles/Vol] 31 mmol/L Normal 23-31 [facility] Comment on above: Performed By: #### G FR, BMP #### [address] [address] Creatinine [Mass/Vol] 0.93 mg/dL Normal 0.55-1.02 [facility] Comment on above: Result Comment: Test ing performed on Siemens Dimension EXL analyzer using a modified kinetic Bobby technique. Performed By: #### G , BMP #### [address] [address] Electrolyte Balance 5.0 mEq/L Normal 4.0-15.0 [facility] Comment on above: Performed By: #### G , BMP #### [address] [address] Glucose [Mass/Vol] 98 mg/dL Normal 80-115 [facility] Comment on above: Performed By: #### Darcy CARMONA, BMP #### [address] [address] Potassium [Moles/Vol] 6.0 mmol/L High 3.5-5.1 [facility] Comment on above: Performed By: #### Darcy CARMONA, BMP #### [address] [address] Sodium [Moles/Vol] 146 mmol/L High 136-145 [facility] Comment on above: Performed By: #### G , BMP #### [address] [address] Urea nitrogen [Mass/Vol] 22 mg/dL High 7-18 [facility] Comment on above: Performed By: #### Darcy CARMONA, BMP #### [address] [address] .GFRon 09-29-2024 Estimated Glomerular Filtration Rate 80 ml/min/1.73sqm Normal [facility] Comment on above: Result Comment: Stages of Chronic Kidney Disease (CKD) Stage Description eGFR(ml/min/1.73 sq.m.) CKD 1 Normal kidney function or >=90 normal kindney function with possible kidney damage (ex. Proteinuria) CKD 2 Kidney damage with mild loss 60-89 of kidney function CKD 3a Mild to moderate loss of kidney 45-59 function CKD 3b Moderate to severe loss of 30-44 of kindey function CKD 4 Severe loss of kidney function 15-29 CKD 5 Kidney failure <15 Note: (go live 2024) the eGFR calculation was updated to the 2020 CKD-EPI creatinine equation without a race factor to calculate the eGFR results. Performed By: #### G , BMP #### [address] [address] BMPon 09-29-2024 BUN/Creatinine Ratio 18 ratio Normal 7-27 [facility] Comment on above: Performed By: #### G , BMP #### [address] [address] Calcium [Mass/Vol] 9.7 mg/dL Normal 8.4-10.2 [facility] Comment on above: Performed By: #### Darcy CARMONA, BMP #### [address] [address] Chloride [Moles/Vol] 104 mmol/L Normal 98-107 [facility] Comment on above: Performed By: #### G , BMP #### [address] [address] CO2 [Moles/Vol] 30 mmol/L Normal 23-31 [facility] Comment on above: Performed By: #### G , BMP #### [address] [address] Creatinine [Mass/Vol] 0.82 mg/dL Normal 0.55-1.02 [facility] Comment on above: Result Comment: Test ing performed on Siemens Dimension EXL analyzer using a modified kinetic Bobby technique. Performed By: #### G FR, BMP #### [address] [address] Electrolyte Balance 5.0 mEq/L Normal 4.0-15.0 [facility] Comment on above: Performed By: #### G FR, BMP #### [address] [address] Glucose [Mass/Vol] 108 mg/dL Normal 80-115 [facility] Comment on above: Performed By: #### G FR, BMP #### [address] [address] Potassium [Moles/Vol] 5.2 mmol/L High 3.5-5.1 [facility] Comment on above: Performed By: #### G FR, BMP #### [address] [address] Sodium [Moles/Vol] 139 mmol/L Normal 136-145 [facility] Comment on above: Performed By: #### G FR, BMP #### [address] [place], [place] [address] Urea nitrogen [Mass/Vol] 15 mg/dL Normal 7-18 [facility] Comment on above: Performed By: #### G FR, BMP #### [address] [address] [place] MAMMOGRAM SCREENING BILAT ERAL W/TOMOon 09-27-2024 [place] MAMMOGRAM SCREENING BILATERAL W/DREAD ORIGINAL FROM: [address] [address] PROCEDURE FOR: SANJUANA CALVO [address] [place] [id number] Home: PID#: [id number] Exam#: [id number] : 1960 Age: 64 TO: PATY VERONICA DO [facility] [address] [address] Fax: NO FAX EXAMINATION: SCREENING DIGITAL BILATERAL MAMMOGRAM WITH TOMOSYNTHESIS, 09/25/2024 11:30 am TECHNIQUE: Screening mammography of the bilateral breasts was performed with tomosynthesis. 2D standard and 3D tomosynthesis combination imaging performed through both breasts in the MLO and CC projection. Computer aided detection was utilized in the interpretation of this exam. COMPARISON: 09/11/2023, 05/23/2022 HISTORY: Breast cancer screening. FINDINGS: BREAST DENSITY: There are scattered areas of fibroglandular density. There is a benign appearing unchanged asymmetry in the right breast. There are benign appearing calcifications in the right breast. There are no significant masses or calcifications. IMPRESSION: No mammographic evidence of malignancy. Continued screening with annual mammograms is recommended. Chi Stearns risk calculations, generated with the history provided, report this patient's 10 year risk and lifetime risk for developing breast cancer at 2.5% and 5.7%, respectively. Based on this assessment tool, if the patient's calculated lifetime risk is below 20%, then the patient is considered at average risk for developing breast cancer. If the patient's calculated lifetime risk is at or above 20%, then the patient is considered high risk for developing breast cancer and may be a candidate for supplemental breast MRI screening in addition to annual mammographic screening per the [employer]. BIRADS: BI-RADS: 2: Benign RECALL: 1 year screening RECALL TYPE: mammo LETTER SENT: Normal BI-RADS 1 and 2 Interpreted by: Ezequiel Wong MD Preliminary Report By: Ezequiel Wong MD Electronically signed By Ezequiel Wong MD Dictated Date: 09/27/2024 7:55:54 PM Prelim Date: 09/27/2024 7:57:07 PM Sign Date: 09/27/2024 7:57:07 PM Ordering Provider: PATY VERONICA [employer] Attendant: CARMELITA LEARY RT(R)(CT) letter sent: Normal BI-RADS 1 and 2 Mammogram BI-RADS: 2 Benign Normal [facility] .Auto Diffon 08-29-2024 Basophil, Absolute 0.1 10 3/mcL Normal 0.0-0.2 [facility] Comment on above: Performed By: #### A DIFF, A1C, ANEU, CBC, LIPID, CMP, VIDH, GFR #### [id number] [place], [place] [address] Basophils/100 WBC (Bld) 0.8 % Normal 0.0-2.5 [facility] Comment on above: Performed By: #### A DIFF, A1C, ANEU, CBC, LIPID, CMP, VIDH, GFR #### [address] [place], [place] [address] Eosinophil, Absolute 0.2 10 3/mcL Normal 0.0-0.7 [facility] Comment on above: Performed By: #### A DIFF, A1C, ANEU, CBC, LIPID, CMP, VIDH, GFR #### [address] [address] Eosinophils/100 WBC (Bld) 2.8 % Normal 0.0-7.0 [facility] Comment on above: Performed By: #### A DIFF, A1C, ANEU, CBC, LIPID, CMP, VIDH, GFR #### [address] [address] Lymphocyte, Absolute 2.4 10 3/mcL Normal 0.9-4.3 [facility] Comment on above: Performed By: #### A DIFF, A1C, ANEU, CBC, LIPID, CMP, VIDH, GFR #### [address] [address] Lymphocytes/100 WBC (Bld) 36.4 % Normal 20.0-40.0 [facility] Comment on above: Performed By: #### A DIFF, A1C, ANEU, CBC, LIPID, CMP, VIDH, GFR #### [address] [address] Monocyte, Absolute 0.4 10 3/mcL Normal 0.1-1.4 [facility] Comment on above: Performed By: #### A DIFF, A1C, ANEU, CBC, LIPID, CMP, VIDH, GFR #### [address] [address] Monocytes/100 WBC (Bld) 5.9 % Normal 2.0-13.0 [facility] Comment on above: Performed By: #### A DIFF, A1C, ANEU, CBC, LIPID, CMP, VIDH, GFR #### [address] [address] Neutrophils/100 WBC (Bld) 54.1 % Normal 50.0-75.0 [facility] Comment on above: Performed By: #### A DIFF, A1C, ANEU, CBC, LIPID, CMP, VIDH, GFR #### [address] [address] .GFRon 08-29-2024 Estimated Glomerular Filtration Rate 85 ml/min/1.73sqm Normal [facility] Comment on above: Result Comment: Stages of Chronic Kidney Disease (CKD) Stage Description eGFR(ml/min/1.73 sq.m.) CKD 1 Normal kidney function or >=90 normal kindney function with possible kidney damage (ex. Proteinuria) CKD 2 Kidney damage with mild loss 60-89 of kidney function CKD 3a Mild to moderate loss of kidney 45-59 function CKD 3b Moderate to severe loss of 30-44 of kindey function CKD 4 Severe loss of kidney function 15-29 CKD 5 Kidney failure <15 Note: (go live 2024) the eGFR calculation was updated to the 2020 CKD-EPI creatinine equation without a race factor to calculate the eGFR results. Performed By: #### A DIFF, A1C, ANEU, CBC, LIPID, CMP, VIDH, GFR #### [address] [address] .NEUABSon 08-29-2024 Neutrophil, Absolute 3.5 10 3/mcL Normal 2.3-8.1 [facility] Comment on above: Performed By: #### A DIFF, A1C, ANEU, CBC, LIPID, CMP, VIDH, GFR #### [address] [address] A1Con 08-29-2024 Glucose [Mass/Vol] 111 mg/dL Normal [facility] Comment on above: Result Comment: Graciela mated Average Glucose calculated by equation ((28.7xA1C)-46.7) Estimated average glucose (eAG) is a calculated value from Hemoglobin A1C and is aircraft sales representative of the average blood glucose level in the last 2-3 month period. Normal range: less than 114 mg/dL Performed By: #### G FR, BMP #### [address] [address] HbA1c (Bld) [Mass fraction] 5.5 % Normal 4.3-6.4 [facility] Comment on above: Performed By: #### G FR, BMP #### [address] [address] CBCon 08-29-2024 Erythrocyte distribution width (RBC) [Ratio] 14.6 % Normal 11.5-15.5 [facility] Comment on above: Performed By: #### A DIFF, A1C, ANEU, CBC, LIPID, CMP, VIDH, GFR #### [address] [address] Hematocrit (Bld) [Volume fraction] 37.6 % Normal 34.0-46.0 [facility] Comment on above: Performed By: #### A DIFF, A1C, ANEU, CBC, LIPID, CMP, VIDH, GFR #### [address] [address] Hgb 12.8 G/dL Normal 12.0-16.0 [facility] Comment on above: Performed By: #### A DIFF, A1C, ANEU, CBC, LIPID, CMP, VIDH, GFR #### [address] [address] MCH (RBC) [Entitic mass] 30.2 pg Normal 27.0-33.0 [facility] Comment on above: Performed By: #### A DIFF, A1C, ANEU, CBC, LIPID, CMP, VIDH, GFR #### [address] [address] MCHC 34.0 G/dL Normal 32.0-36.0 [facility] Comment on above: Performed By: #### A DIFF, A1C, ANEU, CBC, LIPID, CMP, VIDH, GFR #### [address] [address] MCV (RBC) [Entitic vol] 88.9 fL Normal 80.0-99.0 [facility] Comment on above: Performed By: #### A DIFF, A1C, ANEU, CBC, LIPID, CMP, VIDH, GFR #### [address] [address] Platelet 355 10 3/mcL Normal 150-450 [facility] Comment on above: Performed By: #### A DIFF, A1C, ANEU, CBC, LIPID, CMP, VIDH, GFR #### [id number] Platelet mean volume (Bld) [Entitic vol] 6.9 fL Normal 6.6-10.5 [facility] Comment on above: Performed By: #### A DIFF, A1C, ANEU, CBC, LIPID, CMP, VIDH, GFR #### [address] [address] RBC 4.23 10 6/mcL Normal 4.10-5.30 [facility] Comment on above: Performed By: #### A DIFF, A1C, ANEU, CBC, LIPID, CMP, VIDH, GFR #### [address] [address] WBC 6.5 10 3/mcL Normal 4.5-10.8 [facility] Comment on above: Performed By: #### A DIFF, A1C, ANEU, CBC, LIPID, CMP, VIDH, GFR #### [address] [address] CMPon 08-29-2024 Albumin Level 3.6 G/dL Normal 3.4-4.8 [facility] Comment on above: Performed By: #### A DIFF, A1C, ANEU, CBC, LIPID, CMP, VIDH, GFR #### [address] [address] Albumin/Globulin [Mass ratio] 1.2 {ratio} Normal 1.1-2.5 [facility] Comment on above: Performed By: #### A DIFF, A1C, ANEU, CBC, LIPID, CMP, VIDH, GFR #### [address] [address] ALP [Catalytic activity/Vol] 87 U/L Normal 40-135 [facility] Comment on above: Performed By: #### A DIFF, A1C, ANEU, CBC, LIPID, CMP, VIDH, GFR #### [address] [address] ALT [Catalytic activity/Vol] 21 U/L Normal 14-59 [facility] Comment on above: Performed By: #### A DIFF, A1C, ANEU, CBC, LIPID, CMP, VIDH, GFR #### [address] [address] AST [Catalytic activity/Vol] 18 U/L Normal 10-40 [facility] Comment on above: Performed By: #### A DIFF, A1C, ANEU, CBC, LIPID, CMP, VIDH, GFR #### [address] [address] Bili Total 0.3 mg/dL Normal 0.2-1.0 [facility] Comment on above: Result Comment: Use of this assay is not recommended for patients undergoing treatment with eltrombopag due to the potential for falsely elevated results. Performed By: #### A DIFF, A1C, ANEU, CBC, LIPID, CMP, VIDH, GFR #### [address] [address] BUN/Creatinine Ratio 26 ratio Normal 7-27 [facility] Comment on above: Performed By: #### A DIFF, A1C, ANEU, CBC, LIPID, CMP, VIDH, GFR #### [address] [address] Calcium [Mass/Vol] 9.2 mg/dL Normal 8.4-10.2 [facility] Comment on above: Performed By: #### A DIFF, A1C, ANEU, CBC, LIPID, CMP, VIDH, GFR #### [address] [address] Chloride [Moles/Vol] 108 mmol/L High 98-107 [facility] Comment on above: Performed By: #### A DIFF, A1C, ANEU, CBC, LIPID, CMP, VIDH, GFR #### [address] [address] CO2 [Moles/Vol] 28 mmol/L Normal 23-31 [facility] Comment on above: Performed By: #### A DIFF, A1C, ANEU, CBC, LIPID, CMP, VIDH, GFR #### [address] [address] Creatinine [Mass/Vol] 0.78 mg/dL Normal 0.55-1.02 [facility] Comment on above: Result Comment: Test ing performed on Siemens Dimension EXL analyzer using a modified kinetic Bobby technique. Performed By: #### A DIFF, A1C, ANEU, CBC, LIPID, CMP, VIDH, GFR #### [address] [address] Electrolyte Balance 6.0 mEq/L Normal 4.0-15.0 [facility] Comment on above: Performed By: #### A DIFF, A1C, ANEU, CBC, LIPID, CMP, VIDH, GFR #### [address] [address] Globulin 3.0 G/dL Normal 1.5-3.8 [facility] Comment on above: Performed By: #### A DIFF, A1C, ANEU, CBC, LIPID, CMP, VIDH, GFR #### [address] [address] Glucose [Mass/Vol] 84 mg/dL Normal 80-115 [facility] Comment on above: Performed By: #### A DIFF, A1C, ANEU, CBC, LIPID, CMP, VIDH, GFR #### [address] [address] Potassium [Moles/Vol] 5.9 mmol/L High 3.5-5.1 [facility] Comment on above: Performed By: #### A DIFF, A1C, ANEU, CBC, LIPID, CMP, VIDH, GFR #### [address] [address] Sodium [Moles/Vol] 142 mmol/L Normal 136-145 [facility] Comment on above: Performed By: #### A DIFF, A1C, ANEU, CBC, LIPID, CMP, VIDH, GFR #### [address] [address] Total Protein 6.6 G/dL Normal 6.4-8.2 [facility] Comment on above: Performed By: #### A DIFF, A1C, ANEU, CBC, LIPID, CMP, VIDH, GFR #### [address] [address] Urea nitrogen [Mass/Vol] 20 mg/dL High 7-18 [facility] Comment on above: Performed By: #### A DIFF, A1C, ANEU, CBC, LIPID, CMP, VIDH, GFR #### [facility] [address] [place], [place] [address] LABORATORYOrdered By: SYSTEM SYSTEM on 08-29-2024 25-hydroxyvitamin D3 [Mass/Vol] 66.4 ng/mL Invalid Interpretation Code AO ADM SS Comment on above: Interpretive Data: I nterpretive Values Based on Total 25(OH) Vitamin D: Deficient <20 ng/mL Insufficient 20 - <30 ng/mL Sufficient 30-100 ng/mL Albumin BCP dye [Mass/Vol] 3.6 G/dL Normal 3.4 - 4.8 G/dL AO ADM SS Albumin/Globulin [Mass ratio] 1.2 {ratio} Normal 1.1 - 2.5 ratio AO ADM SS ALP [Catalytic activity/Vol] 87 U/L Normal 40 - 135 U/L AO ADM SS ALT With P-5'-P [Catalytic activity/Vol] 21 U/L Normal 14 - 59 U/L AO ADM SS AST With P-5'-P [Catalytic activity/Vol] 18 U/L Normal 10 - 40 U/L AO ADM SS Basophils (Bld) [#/Vol] 0.1 103/mcL Normal 0.0 - 0.2 10^3/mcL AO Workflow SS Basophils/100 WBC (Bld) 0.8 % Normal 0.0 - 2.5 % AO Workflow SS Bilirubin [Mass/Vol] 0.3 mg/dL Normal 0.2 - 1 .0 mg/dL AO ADM SS Comment on above: Interpretive Data: U se of this assay is not recommended for patients undergoing treatment with eltrombopag due to the potential for falsely elevated results. Calcium [Mass/Vol] 9.2 mg/dL Normal 8.4 - 10. 2 mg/dL AO ADM SS Chloride [Moles/Vol] 108 mmol/L High 98 - 10 7 mmol/L AO ADM SS CO2 [Moles/Vol] 28 mmol/L Normal 23 - 31 mmol/L AO ADM SS Creatinine [Mass/Vol] 0.78 mg/dL Normal 0.55 - 1.02 mg/dL AO ADM SS Comment on above: Interpretive Data: T esting performed on [employer] analyzer using a modified kinetic Bobby technique. Electrolyte Balance 6.0 mEq/L Normal 4.0 - 15 .0 mEq/L AO ADM SS Eosinophil, Absolute 0.2 103/mcL Normal 0.0 - 0 .7 10^3/mcL AO Workflow SS Eosinophils/100 WBC (Bld) 2.8 % Normal 0.0 - 7.0 % AO Workflow SS Erythrocyte distribution width (RBC) [Ratio] 14.6 % Normal 11.5 - 15.5 % AO Workflow SS Estimated Glomerular Filtration Rate 85 ml/min/1.73sqm Invalid Interpretation Code AO Chemistry S Comment on above: Interpretive Data: Stages of Chronic Kidney Disease (CKD) Stage Description eGFR(ml/min/1.73 sq.m.) CKD 1 Normal kidney function or >=90 normal kindney function with possible kidney damage (ex. Proteinuria) CKD 2 Kidney damage with mild loss 60-89 of kidney function CKD 3a Mild to moderate loss of kidney 45-59 function CKD 3b Moderate to severe loss of 30-44 of kindey function CKD 4 Severe loss of kidney function 15-29 CKD 5 Kidney failure <15 Note: (go live 2024) the eGFR calculation was updated to the 2020 CKD-EPI creatinine equation without a race factor to calculate the eGFR results. Globulin 3.0 G/dL Normal 1.5 - 3.8 G/dL AO ADM SS Glucose [Mass/Vol] 84 mg/dL Normal 80 - 115 mg/dL AO ADM SS Glucose [Mass/Vol] 111 mg/dL Invalid Interpretation Code AO Chemistry S Comment on above: Interpretive Data: E stimated average glucose (eAG) is a calculated value from Hemoglobin A1C and is aircraft sales representative of the average blood glucose level in the last 2-3 month period. Normal range: less than 114 mg/dL HbA1c (Bld) [Mass fraction] 5.5 % Normal 4.3 - 6.4 % AO ADM SS Hematocrit (Bld) [Volume fraction] 37.6 % Normal 34.0 - 46.0 % AO Workflow SS Hemoglobin (Bld) [Mass/Vol] 12.8 G/dL Normal 12.0 - 16.0 G/dL AO Workflow SS Lymphocytes (Bld) [#/Vol] 2.4 103/mcL Normal 0.9 - 4.3 10^3/mcL AO Workflow SS Lymphocytes/100 WBC (Bld) 36.4 % Normal 20.0 - 40.0 % AO Workflow SS MCH (RBC) [Entitic mass] 30.2 pg Normal 27.0 - 33.0 pg AO Workflow SS MCHC 34.0 G/dL Normal 32.0 - 36.0 G/dL AO Workflow SS MCV (RBC) [Entitic vol] 88.9 fL Normal 80.0 - 99.0 fL AO Workflow SS Monocytes (Bld) [#/Vol] 0.4 103/mcL Normal 0.1 - 1.4 10^3/mcL AO Workflow SS Monocytes/100 WBC (Bld) 5.9 % Normal 2.0 - 13.0 % AO Workflow SS Neutrophils (Bld) [#/Vol] 3.5 103/mcL Normal 2.3 - 8.1 10^3/mcL AO Workflow SS Neutrophils/100 WBC (Bld) 54.1 % Normal 50.0 - 75.0 % AO Workflow SS Platelet mean volume (Bld) [Entitic vol] 6.9 fL Normal 6.6 - 10.5 fL AO Workflow SS Platelets (Bld) [#/Vol] 355 103/mcL Normal 150 - 450 10^3/mcL AO Workflow SS Potassium [Moles/Vol] 5.9 mmol/L High 3.5 - 5.1 mmol/L AO ADM SS Protein [Mass/Vol] 6.6 G/dL Normal 6.4 - 8.2 G/dL AO ADM SS RBC (Bld) [#/Vol] 4.23 106/mcL Normal 4.10 - 5.3 0 10^6/mcL AO Workflow SS Sodium [Moles/Vol] 142 mmol/L Normal 136 - 145 mmol/L AO ADM SS Urea nitrogen [Mass/Vol] 20 mg/dL High 7 - 18 mg/dL AO ADM SS Urea nitrogen/Creatinine [Mass ratio] 26 ratio Normal 7 - 27 ratio AO ADM SS WBC (Bld) [#/Vol] 6.5 103/mcL Normal 4.5 - 10.8 10^3/mcL AO Workflow SS LABORATORYOrdered By: Darnell Azul on 08-29-2024 Cholesterol [Mass/Vol] 116 mg/dL Normal 0 - 200 mg/dL AO ADM SS Comment on above: Interpretive Data: C holesterol Reference Interval: Less than 200 Desirable 200-239 Borderline high risk 240 and above High risk Cholesterol in HDL [Mass/Vol] 65 mg/dL High 40 - 60 mg/dL AO ADM SS Cholesterol in LDL [Mass/Vol] 45 mg/dL Normal 0 - 130 mg/dL AO ADM SS Triglyceride [Mass/Vol] 28 mg/dL Normal 0 - 150 mg/dL AO ADM SS Comment on above: Interpretive Data: T riglyceride Reference Interval: Less than 150 Normal 150-199 Borderline high risk 200-499 High risk 500 or higher Very high risk LIPIDon 08-29-2024 Cholesterol [Mass/Vol] 116 mg/dL Normal 0-200 [facility] Comment on above: Result Comment: Chol esterol Reference Interval: Less than 200 Desirable 200-239 Borderline high risk 240 and above High risk Performed By: #### A DIFF, A1C, ANEU, CBC, LIPID, CMP, VIDH, GFR #### [address] [address] Cholesterol in HDL [Mass/Vol] 65 mg/dL High 40-60 [facility] Comment on above: Performed By: #### A DIFF, A1C, ANEU, CBC, LIPID, CMP, VIDH, GFR #### [address] [address] Cholesterol in LDL [Mass/Vol] 45 mg/dL Normal 0-130 [facility] Comment on above: Performed By: #### A DIFF, A1C, ANEU, CBC, LIPID, CMP, VIDH, GFR #### [address] [address] Triglyceride [Mass/Vol] 28 mg/dL Normal 0-150 [facility] Comment on above: Result Comment: Trig lyceride Reference Interval: Less than 150 Normal 150-199 Borderline high risk 200-499 High risk 500 or higher Very high risk Performed By: #### A DIFF, A1C, ANEU, CBC, LIPID, CMP, VIDH, GFR #### [address] [address] VIDHon 08-29-2024 Vit. D 25-Hydroxy 66.4 ng/mL Normal [facility] Comment on above: Result Comment: Inte rpretive Values Based on Total 25(OH) Vitamin D: Deficient <20 ng/mL Insufficient 20 - <30 ng/mL Sufficient 30-100 ng/mL Performed By: #### A DIFF, A1C, ANEU, CBC, LIPID, CMP, VIDH, GFR #### [id number] [place], [place] [address] Pulmonary Visit Reporton Pulmonary Visit Report [facility] [address] [place] [address] OFFICE VISIT Date of Service: 06/26/24 MR#: [id number] Acct: [id number] Name: SANJUANA CALVO Rep #: [id number] : 1960 Provider: Carolyne Johnson NP Age/Sex: 64/F Location: [facility].PMW Status: Signed Assessment and Plan Assessment and Plan (1) Asthma-COPD overlap syndrome: Status: Chronic Comment: FEV1 71% Plan: Asthma COPD overlap syndrome has been stable. I recommend that she continue with use of triple therapy. Use albuterol on an as-needed basis. If respiratory symptoms worsen or respiratory illness occurs, notify this practice. I do recommend repeating a PFT and 6-minute walk test in 6 months which would be 2 years from the last testing. The patient understands this recommendation and is agreeable to it. Today we discussed diet and exercise specifically for weight loss. She is encouraged to proceed with an exercise regimen and limiting her daily calorie intake. (2) Smoking greater than 40 pack years: Status: Chronic Comment: quit 2014 Plan: She remains appropriate for repeat LDCT which is due in May 2025, ordered accordingly. She is encouraged to continue with the LDCT screening program. Continue to live a smoke-free lifestyle. Orders: Orders Low Dose CT Lung Screening 11 Months F17.210 - Nicotine dependence, cigarettes, uncomplicated PFT Complete - DLCO, Spirometry b/a bronchodilators, lung volumes 6 Months J44.9 - Chronic obstructive pulmonary disease, unspecified Simple Pulmonary Exercise Test 6 Months J44.9 - Chronic obstructive pulmonary disease, unspecified Plan Details Follow Up: 7 Months (LMR) HPI HPI Comments Details: This 64-year-old female patient presents to the office today for follow-up of her asthma/COPD overlap syndrome complicated by history of smoking. She is ambulatory and currently on room air. She has not required any antibiotics or prednisone for any respiratory illnesses since last visit. She has not needed to go to urgent care or ER. She continues to use Trelegy 1 puff daily with good benefit. She reports that she is performing adequate oral hygiene after inhaler use. She has not experienced sore throat or thrush. She uses albuterol rescue inhaler approximately once weekly. She will use it more often with cold air exposure or when she is physically exerting at work. She does have shortness of breath on exertion, however this has not progressed. She will experience occasional cough and wheeze when it is really cold out and rare production of clear mucus. She denies any chest tightness, chest pain or palpitations. She also denies any fever, chills or body aches. If you recall, she has a greater than [id number] smoking history but quit completely back in 2014. She has obtained RSV, flu vaccine for this year. She has had COVID booster. Test results personally reviewed with patient: Low-dose CT lung screening completed on May 20, 2024 shows hyperinflation with diffuse emphysematous changes worse in the upper lobes with bullous formation. The CT notes stable scarring and bronchiectasis and soft tissue prominence in both lung apices worse on the left side. It indicates focal thickening along the right minor fissure. The recommendation is to repeat LDCT in 12 months. Intake Vital Signs 11/01/23 09:48 06/26/24 12:54 Height 5 ft 5 in 5 ft 5 in Weight: 185 lb 168 lb 4 oz BMI 30.7 28.0 BP 124/74 H 128/84 H Blood Pressure Location Lt brachial Rt brachial Position Sitting Sitting Respiration 18 Pulse 68 77 Pulse Source Monitor Monitor Temp 98.2 F 97.1 F L Temperature Source Temporal Artery Temporal Artery Pulse Oximetry (%) 95 95 Oxygen Delivery Method room air room air Intake Visit Reasons: 8 m fu Chief Complaint: 3 M FU Allergies No Known Allergies Allergy (Verified 06/26/24 13:01) Medications ???Medication ???Instructions ???Recorded ???Confirmed ???Type albuterol sulfate 90 mcg/actuation 2 puff inhalation Q6H PRN 07/30/22 06/26/24 History aerosol inhaler (Ventolin HFA) aspirin 81 mg chewable tablet 81 mg PO DAILY 07/30/22 06/26/24 History (Children's Aspirin) cholecalciferol (vitamin D3) 25 25 mcg PO DAILY 07/30/22 06/26/24 History mcg (1,000 unit) capsule ibuprofen 200 mg capsule 200 mg PO Q6H PRN 07/30/22 06/26/24 History magnesium oxide 400 mg (241.3 mg 400 mg PO DAILY 07/30/22 06/26/24 History magnesium) tablet omeprazole 40 mg capsule,delayed 40 mg PO DAILY 07/30/22 06/26/24 History release calcium 333 mg tab PO 04/17/23 06/26/24 History (carbonate)-magnesi um 133 mg (oxide)-zinc 5 mg tablet fluticasone fur. 100 mcg-umeclid 1 inh inhalation DAILY #3 ea 11/01/23 06/26/24 Rx 62.5 mcg-vilant 25 mcg inhalat.po (more content not included)... Normal [facility] Low Dose CT Lung Screeningon 05-20-[address] Lung Screening [facility] [address] [place] [address] Lung Screening MR#: [id number] Acct: [id number] Name: SANJUANA CALVO Rep #: [id number] : 1960 F 64 From: Jose Manuel og MD PCP: Dr. Paty Veronica, DO Status: [facility] Study: Low Dose CT Lung Screening Date of Exam: 05/20 Exam# [id number] Ordering Dr: Gay Norton GREASE MAN GREASE MAN-C [id number] STUDY: LOW DOSE CT LUNG CANCER SCREENING REASON FOR EXAM: Female, 64 years old. Former smoker. The patient smoked 1 pack per day for 30 years. RADIATION DOSAGE (If Supplied By Facility): CTDIvol = ( 3.02 ) mGy, DLP = ( 110.23 ) mGycm TECHNIQUE: No contrast was administered. Low dose technique was utilized (average mAS-38 and kVp 120). 1.25 mm axial source images with a slice interval of 1.25-mm were reconstructed in lung windows. 2.5 mm axial source images with a slice interval of 2.5-mm were reconstructed in lung windows. 5.0 mm axial source images with a slice interval of 5.0-mm were reconstructed in soft tissue windows. COMPARISON: Comparison is made with prior study May 10, 2023. NODULES: No suspicious nodules are seen. Emphysema: Hyperinflation. Diffuse emphysematous changes worse in the upper lobes with bullous formation. Stable scarring and bronchiectasis and soft tissue prominence in both lung apices worse on the left side. Focal thickening along the right minor fissure. Endobronchial lesion: None Aorta: Atherosclerotic plaque formation of the aortic arch. CORONARY ARTERIES: Coronary artery calcification is seen. Heart: Unremarkable Pulmonary artery: Unremarkable Mediastinal nodes: Unremarkable Other chest and abdominal findings: CT/Low Dose CT Lung Screening IMPRESSION: Lung-RADS category 2 - Continue annual screening with LDCT in 12 months. IMPORTANT NOTES FOR USE: ACR Lung-RADS Version 1.1 Assessment Categories Release Date: 2018 Category: Coded 0-4 bases on nodule(s) with highest degree of suspicion. Negative screen is defined as categories 1 and 2; a positive screen is defined as categories 3 and 4. Category 3 and 4A nodules that are unchanged on interval CT should be coded as category 2, and individuals returned to screening in 12 months. Category 4X: Category 3 or 4 nodules with additional imaging findings that increase the suspicion of lung cancer, such as spiculation, GGN that doubles in size in 1 year, enlarged lymph notes, etc. Category Modifiers: S (significant finding unrelated to lung cancer) Electronically Signed: Jose Manuel Metz MD at 10:42 EST , CC: LUIS Norton; Dr. 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 2D standard and 3D tomosynthesis combination imaging performed through both breasts in the MLO and CC projection. Computer aided detection was utilized in the interpretation of this exam. COMPARISON: 05/23/2022, 02/17/2021, 04/16/2018 HISTORY: Breast cancer screening. FINDINGS: BREAST DENSITY: Scattered fibroglandular tissue There are benign appearing calcifications in both breasts. There is a benign appearing unchanged asymmetry in the right breast. There are no significant masses or calcifications. IMPRESSION: No mammographic evidence of malignancy. Continued screening with annual mammograms is recommended. Chi Trotterzick risk calculations, generated with the history provided, report this patient's 10 year risk and lifetime risk for developing breast cancer at 2.7% and 6.2%, respectively. Based on this assessment tool, if the patient's calculated lifetime risk is below 20%, then the patient is considered at average risk for developing breast cancer. If the patient's calculated lifetime risk is at or above 20%, then the patient is considered high risk for developing breast cancer and may be a candidate for supplemental breast MRI screening in addition to annual mammographic screening per the [employer] [employer]. BIRADS: MAMMOGRAM BI-RADS: 2: Benign finding RECALL: 1 year screening RECALL TYPE: mammo LETTER SENT: Normal BI-RADS 1 and 2 Interpreted by: Ezequiel Wong MD Preliminary Report By: Ezequiel Wong MD Electronically signed By Ezequiel Wong MD Dictated Date: 09/13/2023 10:44:35 AM Prelim Date: 09/13/2023 10:50:53 AM Sign Date: 09/13/2023 10:50:53 AM Ordering Provider: PATY VERONICA [employer] Attendant: JC RODRIGUEZ (R) (M) (CT) letter sent: Normal BI-RADS 1 and 2 Mammogram BI-RADS: 2 Benign Normal [facility] [place] ([place]) BD BONE DENSITY DEXA AXIAL S Jayda 09-11-2023 BD BONE DENSITY DEXA AXIAL SKELETON ORIGINAL EXAMINATION: BONE DENSITOMETRY 09/11/2023 2:36 pm TECHNIQUE: A bone density dual x-ray absorptiometry (DEXA) scan was performed of the axial (e.g. hips, spine) and/or appendicular (e.g. radius) skeleton as appropriate on a [employer] system. COMPARISON: 02/17/2021 HISTORY: ORDERING SYSTEM PROVIDED HISTORY: Reason for Exam: Osteoporosis Screening Postmenopausal FINDINGS: BMD (g/cm2) Lumbar Spine L1-L4: 0.918. T Score Lumbar Spine L1-L4: -1.2 BMD (g/cm2) Left Femoral Neck: 0.635. T Score Left Femoral Neck: -1.9 BMD (g/cm2) Left Hip: 0.778. T Score Left Hip: -1.3 BMD Change from previous Hip: 1.8% BMD Change from previous Lumbar spine: -2.8% FRAX: 10 year fracture risk assessment Major osteoporotic fracture: 9.5% Hip fracture: 1.2% IMPRESSION: Osteopenia by WHO criteria. World Health Organization criteria: (Comparing with young normal sex matched population) - Normal: T-score at or above -1 SD (standard deviation) - Osteopenia: T-score between -1 and -2.5 SD - Osteoporosis: T-score at or below -2.5 SD The NOF recommends that FDA-approved medical therapies be considered in post-menopausal women and men age >/= 50 years with a: * Hip or vertebral fracture, or * T-score of /= 20% for major osteoporotic fractures or * >/= 3% for hip fractures All treatment decisions require clinical judgement and consideration of individual patient factors, including patient preferences, comorbidities, previous drug use, risk factors not captured in the FRAX registered model (e.g., frailty, falls, vitamin D deficiency, increased bone turnover, interval significant decline in bone density) and possible under- or over-estimation of fracture risk by FRAX. I have personally reviewed the images of this examination and agree with the resident's findings and interpretation. Interpreted by: Estela Meza Preliminary Report By: Too Salinas Electronically signed By Estela Meza Dictated Date: 09/11/2023 3:06:29 PM Prelim Date: 09/11/2023 3:21:15 PM Sign Date: 09/11/2023 3:21:15 PM Ordering Provider: PATY VERONICA [facility] ([place]) .GFRon 08-28-2023 GFR 78 ml/min/1.73sqm [facility] ([place]) Comment on above: Result Comment: GFR Population mean for , Non- Americans Ages 20-29 = 116 mL/min/1.73 sq.m. Ages 30-39 = 107 mL/min/1.73 sq.m. Ages 40-49 = 99 mL/min/1.73 sq.m. Ages 50-59 = 93 mL/min/1.73 sq.m. Ages 60-69 = 85 mL/min/1.73 sq.m. Ages 70+ = 75 mL/min/1.73 sq.m. Chronic Kidney Disease: Less than 60 mL/min/1.73 square meters End Stage Renal Disease: Less than 15 mL/min/1.73 square meters Performed By: #### B MP, GFR #### Elle [address] [address] GFR Non- 64 ml/min/1.73sqm [facility] ([place]) Comment on above: Result Comment: GFR Population mean for , Non- Americans Ages 20-29 = 116 mL/min/1.73 sq.m. Ages 30-39 = 107 mL/min/1.73 sq.m. Ages 40-49 = 99 mL/min/1.73 sq.m. Ages 50-59 = 93 mL/min/1.73 sq.m. Ages 60-69 = 85 mL/min/1.73 sq.m. Ages 70+ = 75 mL/min/1.73 sq.m. Chronic Kidney Disease: Less than 60 mL/min/1.73 square meters End Stage Renal Disease: Less than 15 mL/min/1.73 square meters Performed By: #### B MP, GFR #### [address] [address] BMPon 08-28-2023 BUN/Creatinine Ratio 15 ratio Normal 7-27 [facility] ([place]) Comment on above: Performed By: #### B MP, GFR #### [address] [address] Calcium [Mass/Vol] 9.6 mg/dL Normal 8.4-10.2 [facility] ([place]) Comment on above: Performed By: #### B MP, GFR #### [address] [address] Chloride [Moles/Vol] 104 mmol/L Normal 98-107 [facility] ([place]) Comment on above: Performed By: #### B MP, GFR #### [address] [address] CO2 [Moles/Vol] 29 mmol/L Normal 23-31 [facility] ([place]) Comment on above: Performed By: #### B MP, GFR #### [address] [address] Creatinine [Mass/Vol] 0.89 mg/dL Normal 0.55-1.02 [facility] ([place]) Comment on above: Performed By: #### B MP, GFR #### [address] [address] Electrolyte Balance 8.0 mEq/L Normal 4.0-15.0 [facility] ([place]) Comment on above: Performed By: #### B MP, GFR #### [address] [address] Glucose [Mass/Vol] 79 mg/dL Low 80-115 [facility] ([place]) Comment on above: Performed By: #### B MP, GFR #### [address] [address] Potassium [Moles/Vol] 4.9 mmol/L Normal 3.5-5.1 [facility] ([place]) Comment on above: Performed By: #### B MP, GFR #### [facility] [address] [place], [place] [address] Sodium [Moles/Vol] 141 mmol/L Normal 136-145 [facility] ([place]) Comment on above: Performed By: #### B MP, GFR #### Elle [place] [address] [place], [place] [address] Urea nitrogen [Mass/Vol] 13 mg/dL Normal 7-18 [facility] [place] ([place]) Comment on above: Performed By: #### B MP, GFR #### Elle [place] [address] [place], [place] [address] LABORATORYOrdered By: SYSTEM SYSTEM on 08-28-2023 Calcium [Mass/Vol] 9.6 mg/dL Normal 8.4 - 10. 2 mg/dL AO ADM SS Chloride [Moles/Vol] 104 mmol/L Normal 98 - 10 7 mmol/L AO ADM SS CO2 [Moles/Vol] 29 mmol/L Normal 23 - 31 mmol/L AO ADM SS Creatinine [Mass/Vol] 0.89 mg/dL Normal 0.55 - 1.02 mg/dL AO ADM SS Electrolyte Balance 8.0 mEq/L Normal 4.0 - 15 .0 mEq/L AO ADM SS GFR/1.73 sq M.predicted among blacks MDRD (S/P/Bld) [Vol rate/Area] 78 ml/min/1.73sqm Invalid Interpretation Code AO Chemistry S Comment on above: Interpretive Data: GFR Population mean for , Non- Americans Ages 20-29 = 116 mL/min/1.73 sq.m. Ages 30-39 = 107 mL/min/1.73 sq.m. Ages 40-49 = 99 mL/min/1.73 sq.m. Ages 50-59 = 93 mL/min/1.73 sq.m. Ages 60-69 = 85 mL/min/1.73 sq.m. Ages 70+ = 75 mL/min/1.73 sq.m. Chronic Kidney Disease: Less than 60 mL/min/1.73 square meters End Stage Renal Disease: Less than 15 mL/min/1.73 square meters GFR/1.73 sq M.predicted among non-blacks MDRD (S/P/Bld) [Vol rate/Area] 64 ml/min/1.73sqm Invalid Interpretation Code AO Chemistry S Comment on above: Interpretive Data: GFR Population mean for , Non- Americans Ages 20-29 = 116 mL/min/1.73 sq.m. Ages 30-39 = 107 mL/min/1.73 sq.m. Ages 40-49 = 99 mL/min/1.73 sq.m. Ages 50-59 = 93 mL/min/1.73 sq.m. Ages 60-69 = 85 mL/min/1.73 sq.m. Ages 70+ = 75 mL/min/1.73 sq.m. Chronic Kidney Disease: Less than 60 mL/min/1.73 square meters End Stage Renal Disease: Less than 15 mL/min/1.73 square meters Glucose [Mass/Vol] 79 mg/dL Low 80 - 115 mg/dL AO ADM SS Potassium [Moles/Vol] 4.9 mmol/L Normal 3.5 - 5.1 mmol/L AO ADM SS Sodium [Moles/Vol] 141 mmol/L Normal 136 - 145 mmol/L AO ADM SS Urea nitrogen [Mass/Vol] 13 mg/dL Normal 7 - 18 mg/dL AO ADM SS Urea nitrogen/Creatinine [Mass ratio] 15 ratio Normal 7 - 27 ratio AO ADM SS .Auto Diffon 08-21-2023 Basophil, Absolute 0.1 10 3/mcL Normal 0.0-0.2 [facility] ([place]) Comment on above: Performed By: #### V IDH, LIPID, GFR, ANEU, CMP, CBC, A1C, ADIFF #### [address] [address] Basophils/100 WBC (Bld) 0.8 % Normal 0.0-2.5 [facility] [place] ([place]) Comment on above: Performed By: #### V IDH, LIPID, GFR, ANEU, CMP, CBC, A1C, ADIFF #### [address] [address] Eosinophil, Absolute 0.2 10 3/mcL Normal 0.0-0.4 [facility] ([place]) Comment on above: Performed By: #### V IDH, LIPID, GFR, ANEU, CMP, CBC, A1C, ADIFF #### [address] [address] Eosinophils/100 WBC (Bld) 3.1 % Normal 0.0-7.0 [facility] [place] ([place]) Comment on above: Performed By: #### V IDH, LIPID, GFR, ANEU, CMP, CBC, A1C, ADIFF #### [address] [address] Lymphocyte, Absolute 2.1 10 3/mcL Normal 0.8-3.9 [facility] ([place]) Comment on above: Performed By: #### V IDH, LIPID, GFR, ANEU, CMP, CBC, A1C, ADIFF #### [address] [address] Lymphocytes/100 WBC (Bld) 30.1 % Normal 10.0-50.0 [facility] [place] ([place]) Comment on above: Performed By: #### V IDH, LIPID, GFR, ANEU, CMP, CBC, A1C, ADIFF #### [address] [address] Monocyte, Absolute 0.4 10 3/mcL Normal 0.2-1.0 [facility] ([place]) Comment on above: Performed By: #### V IDH, LIPID, GFR, ANEU, CMP, CBC, A1C, ADIFF #### [address] [address] Monocytes/100 WBC (Bld) 5.9 % Normal 1.7-13.0 [facility] [place] ([place]) Comment on above: Performed By: #### V IDH, LIPID, GFR, ANEU, CMP, CBC, A1C, ADIFF #### [address] [address] Neutrophils/100 WBC (Bld) 60.1 % Normal 37.0-80.0 [facility] [place] ([place]) Comment on above: Performed By: #### V IDH, LIPID, GFR, ANEU, CMP, CBC, A1C, ADIFF #### [address] [address] .GFRon 08-21-2023 GFR 69 ml/min/1.73sqm Normal [facility] [place] ([place]) Comment on above: Result Comment: GFR Population mean for , Non- Americans Ages 20-29 = 116 mL/min/1.73 sq.m. Ages 30-39 = 107 mL/min/1.73 sq.m. Ages 40-49 = 99 mL/min/1.73 sq.m. Ages 50-59 = 93 mL/min/1.73 sq.m. Ages 60-69 = 85 mL/min/1.73 sq.m. Ages 70+ = 75 mL/min/1.73 sq.m. Chronic Kidney Disease: Less than 60 mL/min/1.73 square meters End Stage Renal Disease: Less than 15 mL/min/1.73 square meters Performed By: #### V IDH, LIPID, GFR, ANEU, CMP, CBC, A1C, ADIFF #### [address] [address] GFR Non- 57 ml/min/1.73sqm Normal [facility] [place] ([place]) Comment on above: Result Comment: GFR Population mean for , Non- Americans Ages 20-29 = 116 mL/min/1.73 sq.m. Ages 30-39 = 107 mL/min/1.73 sq.m. Ages 40-49 = 99 mL/min/1.73 sq.m. Ages 50-59 = 93 mL/min/1.73 sq.m. Ages 60-69 = 85 mL/min/1.73 sq.m. Ages 70+ = 75 mL/min/1.73 sq.m. Chronic Kidney Disease: Less than 60 mL/min/1.73 square meters End Stage Renal Disease: Less than 15 mL/min/1.73 square meters Performed By: #### V IDH, LIPID, GFR, ANEU, CMP, CBC, A1C, ADIFF #### [address] [address] .NEUABSon 08-21-2023 Neutrophil, Absolute 4.2 10 3/mcL Normal 2.9-6.2 [facility] ([place]) Comment on above: Performed By: #### V IDH, LIPID, GFR, ANEU, CMP, CBC, A1C, ADIFF #### [address] [address] A1Con 08-21-2023 HbA1c (Bld) [Mass fraction] 5.2 % Normal 4.3-6.4 [facility] [place] ([place]) Comment on above: Performed By: #### B MP, GFR #### [address] [address] CBCon 08-21-2023 Erythrocyte distribution width (RBC) [Ratio] 14.2 % Normal 11.5-14.5 [facility] [place] ([place]) Comment on above: Performed By: #### V IDH, LIPID, GFR, ANEU, CMP, CBC, A1C, ADIFF #### [place] [address] Hematocrit (Bld) [Volume fraction] 37.9 % Normal 37.0-47.0 [facility] [place] ([place]) Comment on above: Performed By: #### V IDH, LIPID, GFR, ANEU, CMP, CBC, A1C, ADIFF #### [place] [address] Hgb 12.6 G/dL Normal 12.0-16.0 [facility] [place] ([place]) Comment on above: Performed By: #### V IDH, LIPID, GFR, ANEU, CMP, CBC, A1C, ADIFF #### [address] [address] MCH (RBC) [Entitic mass] 29.4 pg Normal 27.0-31.2 [facility] [place] ([place]) Comment on above: Performed By: #### V IDH, LIPID, GFR, ANEU, CMP, CBC, A1C, ADIFF #### [address] [address] MCHC 33.3 G/dL Normal 33.0-37.0 [facility] [place] ([place]) Comment on above: Performed By: #### V IDH, LIPID, GFR, ANEU, CMP, CBC, A1C, ADIFF #### [address] [address] MCV (RBC) [Entitic vol] 88.2 fL Normal 80.0-94.0 [facility] [place] ([place]) Comment on above: Performed By: #### V IDH, LIPID, GFR, ANEU, CMP, CBC, A1C, ADIFF #### [address] [address] Platelet 391 10 3/mcL Normal 130-400 [facility] ([place]) Comment on above: Performed By: #### V IDH, LIPID, GFR, ANEU, CMP, CBC, A1C, ADIFF #### [place] [address] Platelet mean volume (Bld) [Entitic vol] 6.9 fL Low 7.4-10.4 [facility] ([place]) Comment on above: Performed By: #### V IDH, LIPID, GFR, ANEU, CMP, CBC, A1C, ADIFF #### [place] [address] RBC 4.30 10 6/mcL Normal 4.20-5.40 [facility] ([place]) Comment on above: Performed By: #### V IDH, LIPID, GFR, ANEU, CMP, CBC, A1C, ADIFF #### [address] [address] WBC 6.9 10 3/mcL Normal 4.6-10.8 [facility] ([place]) Comment on above: Performed By: #### V IDH, LIPID, GFR, ANEU, CMP, CBC, A1C, ADIFF #### [address] [address] CMPon 08-21-2023 Albumin Level 3.6 G/dL Normal 3.4-4.8 [facility] ([place]) Comment on above: Performed By: #### V IDH, LIPID, GFR, ANEU, CMP, CBC, A1C, ADIFF #### [address] [address] Albumin/Globulin [Mass ratio] 1.0 {ratio} Low 1.1-2.5 [facility] [place] ([place]) Comment on above: Performed By: #### V IDH, LIPID, GFR, ANEU, CMP, CBC, A1C, ADIFF #### Elle [place] [address] [place], [place] [address] ALP [Catalytic activity/Vol] 116 U/L Normal 40-135 [facility] [place] ([place]) Comment on above: Performed By: #### V IDH, LIPID, GFR, ANEU, CMP, CBC, A1C, ADIFF #### [address] [address] ALT [Catalytic activity/Vol] 21 U/L Normal 14-59 [facility] [place] ([place]) Comment on above: Performed By: #### V IDH, LIPID, GFR, ANEU, CMP, CBC, A1C, ADIFF #### [address] [address] AST [Catalytic activity/Vol] 16 U/L Normal 10-40 [facility] [place] ([place]) Comment on above: Performed By: #### V IDH, LIPID, GFR, ANEU, CMP, CBC, A1C, ADIFF #### [address] [address] Bili Total 0.6 mg/dL Normal 0.2-1.0 [facility] [place] ([place]) Comment on above: Result Comment: Use of this assay is not recommended for patients undergoing treatment with eltrombopag due to the potential for falsely elevated results. Performed By: #### V IDH, LIPID, GFR, ANEU, CMP, CBC, A1C, ADIFF #### [address] [address] BUN/Creatinine Ratio 14 ratio Normal 7-27 [facility] ([place]) Comment on above: Performed By: #### V IDH, LIPID, GFR, ANEU, CMP, CBC, A1C, ADIFF #### [address] [address] Calcium [Mass/Vol] 9.4 mg/dL Normal 8.4-10.2 [facility] ([place]) Comment on above: Performed By: #### V IDH, LIPID, GFR, ANEU, CMP, CBC, A1C, ADIFF #### [address] [address] Chloride [Moles/Vol] 106 mmol/L Normal 98-107 [facility] ([place]) Comment on above: Performed By: #### V IDH, LIPID, GFR, ANEU, CMP, CBC, A1C, ADIFF #### [address] [address] CO2 [Moles/Vol] 30 mmol/L Normal 23-31 [facility] [place] Comment on above: Performed By: #### V IDH, LIPID, GFR, ANEU, CMP, CBC, A1C, ADIFF #### [address] [address] Creatinine [Mass/Vol] 0.99 mg/dL Normal 0.55-1.02 [facility] ([place]) Comment on above: Performed By: #### V IDH, LIPID, GFR, ANEU, CMP, CBC, A1C, ADIFF #### [address] [address] Electrolyte Balance 9.0 mEq/L Normal 4.0-15.0 [facility] ([place]) Comment on above: Performed By: #### V IDH, LIPID, GFR, ANEU, CMP, CBC, A1C, ADIFF #### [address] [address] Globulin 3.5 G/dL Normal [facility] [place] ([place]) Comment on above: Performed By: #### V IDH, LIPID, GFR, ANEU, CMP, CBC, A1C, ADIFF #### [address] [address] Glucose [Mass/Vol] 98 mg/dL Normal 80-115 [facility] ([place]) Comment on above: Performed By: #### V IDH, LIPID, GFR, ANEU, CMP, CBC, A1C, ADIFF #### [address] [address] Potassium [Moles/Vol] 5.5 mmol/L High 3.5-5.1 [facility] ([place]) Comment on above: Performed By: #### V IDH, LIPID, GFR, ANEU, CMP, CBC, A1C, ADIFF #### [address] [address] Sodium [Moles/Vol] 145 mmol/L Normal 136-145 [facility] ([place]) Comment on above: Performed By: #### V IDH, LIPID, GFR, ANEU, CMP, CBC, A1C, ADIFF #### [address] [address] Total Protein 7.1 G/dL Normal 6.4-8.2 [facility] ([place]) Comment on above: Performed By: #### V IDH, LIPID, GFR, ANEU, CMP, CBC, A1C, ADIFF #### [address] [address] Urea nitrogen [Mass/Vol] 14 mg/dL Normal 7-18 [facility] [place] ([place]) Comment on above: Performed By: #### V IDH, LIPID, GFR, ANEU, CMP, CBC, A1C, ADIFF #### [address] [address] LIPIDon 08-21-2023 Cholesterol [Mass/Vol] 196 mg/dL Normal 0-200 [facility] [place] ([place]) Comment on above: Result Comment: Chol esterol Reference Interval: Less than 200 Desirable 200-239 Borderline high risk 240 and above High risk Performed By: #### B MP, GFR #### [address] [address] Cholesterol in HDL [Mass/Vol] 58 mg/dL Normal 40-60 [facility] [place] ([place]) Comment on above: Performed By: #### B MP, GFR #### [address] [address] Cholesterol in LDL [Mass/Vol] 122 mg/dL Normal 0-130 [facility] [place] ([place]) Comment on above: Performed By: #### B MP, GFR #### [address] [address] Triglyceride [Mass/Vol] 81 mg/dL Normal 0-150 [facility] [place] ([place]) Comment on above: Result Comment: Trig lyceride Reference Interval: Less than 150 Normal 150-199 Borderline high risk 200-499 High risk 500 or higher Very high risk Performed By: #### B MP, GFR #### [address] [address] VIsavanna 08-21-2023 Vit. D 25-Hydroxy 49.1 ng/mL Normal [facility] [place] ([place]) Comment on above: Result Comment: Inte rpretive Values Based on Total 25(OH) Vitamin D: Deficient <20 ng/mL Insufficient 20 - <30 ng/mL Sufficient 30-100 ng/mL Performed By: #### V IDH, LIPID, GFR, ANEU, CMP, CBC, A1C, ADIFF #### [address] [address] LABORATORYOrdered By: Opal Li on 05-23-2022 Calcium [Mass/Vol] 9.3 mg/dL Invalid Interpretation Code 8.4 - 10.2 mg/dL AO ADM SS Chloride [Moles/Vol] 103 mmol/L Invalid Interpretation Code 98 - 107 mmol/L AO ADM SS CO2 [Moles/Vol] 32 mmol/L Invalid Interpretation Code 23 - 31 mmol/L AO ADM SS Creatinine [Mass/Vol] 0.87 mg/dL Invalid Interpretation Code 0.55 - 1.02 mg/dL AO ADM SS Electrolyte Balance 4.0 mEq/L Invalid Interpretation Code 4.0 - 15.0 mEq/L AO ADM SS Glucose [Mass/Vol] 86 mg/dL Invalid Interpretation Code 80 - 115 mg/dL AO ADM SS Magnesium [Mass/Vol] 2.2 mg/dL Invalid Interpretation Code 1.8 - 2.4 mg/dL AO ADM SS Potassium [Moles/Vol] 4.9 mmol/L Invalid Interpretation Code 3.5 - 5.1 mmol/L AO ADM SS Sodium [Moles/Vol] 139 mmol/L Invalid Interpretation Code 136 - 145 mmol/L AO ADM SS Urea nitrogen [Mass/Vol] 14 mg/dL Invalid Interpretation Code 7 - 18 mg/dL AO ADM SS Urea nitrogen/Creatinine [Mass ratio] 16 ratio Invalid Interpretation Code 7 - 27 ratio AO ADM SS LABORATORYOrdered By: SYSTEM SYSTEM on 05-23-2022 GFR 80 ml/min/1.73sqm Invalid Interpretation Code AO Chemistry S GFR Non- 66 ml/min/1.73sqm Invalid Interpretation Code AO Chemistry S LABORATORYOrdered By: Opal Li on 05-02-2022 Albumin BCP dye [Mass/Vol] 3.8 G/dL Invalid Interpretation Code 3.4 - 4.8 G/dL AO ADM SS Albumin/Globulin [Mass ratio] 1.2 {ratio} Invalid Interpretation Code 1.1 - 2.5 ratio AO ADM SS ALP [Catalytic activity/Vol] 105 U/L Invalid Interpretation Code 40 - 135 U/L AO ADM SS ALT With P-5'-P [Catalytic activity/Vol] 20 U/L Invalid Interpretation Code 14 - 59 U/L AO ADM SS AST With P-5'-P [Catalytic activity/Vol] 18 U/L Invalid Interpretation Code 10 - 40 U/L AO ADM SS Bilirubin [Mass/Vol] 0.5 mg/dL Invalid Interpretation Code 0.2 - 1.0 mg/dL AO ADM SS Calcium [Mass/Vol] 9.3 mg/dL Invalid Interpretation Code 8.4 - 10.2 mg/dL AO ADM SS Chloride [Moles/Vol] 105 mmol/L Invalid Interpretation Code 98 - 107 mmol/L AO ADM SS CO2 [Moles/Vol] 30 mmol/L Invalid Interpretation Code 23 - 31 mmol/L AO ADM SS Creatinine [Mass/Vol] 0.82 mg/dL Invalid Interpretation Code 0.55 - 1.02 mg/dL AO ADM SS Electrolyte Balance 6.0 mEq/L Invalid Interpretation Code 4.0 - 15.0 mEq/L AO ADM SS Globulin 3.2 G/dL Invalid Interpretation Code AO ADM SS Glucose [Mass/Vol] 93 mg/dL Invalid Interpretation Code 80 - 115 mg/dL AO ADM SS HbA1c (Bld) [Mass fraction] 5.6 % Invalid Interpretation Code 4.3 - 6.4 % AO ADM SS Potassium [Moles/Vol] 5.9 mmol/L Invalid Interpretation Code 3.5 - 5.1 mmol/L AO ADM SS Protein [Mass/Vol] 7.0 G/dL Invalid Interpretation Code 6.4 - 8.2 G/dL AO ADM SS Sodium [Moles/Vol] 141 mmol/L Invalid Interpretation Code 136 - 145 mmol/L AO ADM SS Urea nitrogen [Mass/Vol] 14 mg/dL Invalid Interpretation Code 7 - 18 mg/dL AO ADM SS Urea nitrogen/Creatinine [Mass ratio] 17 ratio Invalid Interpretation Code 7 - 27 ratio AO ADM SS LABORATORYOrdered By: Johnahtan Mcfarlane on 05-02-2022 Basophil, Absolute 0.0 103/mcL Invalid Interpretation Code 0.0 - 0.2 10^3/mcL AO Workflow SS Basophils/100 WBC (Bld) 0.5 % Invalid Interpretation Code 0.0 - 2.5 % AO Workflow SS Eosinophil, Absolute 0.2 103/mcL Invalid Interpretation Code 0.0 - 0.4 10^3/mcL AO Workflow SS Eosinophils/100 WBC (Bld) 2.7 % Invalid Interpretation Code 0.0 - 7.0 % AO Workflow SS Erythrocyte distribution width (RBC) [Ratio] 14.5 % Invalid Interpretation Code 11.5 - 14.5 % AO Workflow SS Hematocrit (Bld) [Volume fraction] 37.3 % Invalid Interpretation Code 37.0 - 47.0 % AO Workflow SS Hemoglobin (Bld) [Mass/Vol] 12.8 G/dL Invalid Interpretation Code 12.0 - 16.0 G/dL AO Workflow SS Lymphocyte, Absolute 2.3 103/mcL Invalid Interpretation Code 0.8 - 3.9 10^3/mcL AO Workflow SS Lymphocytes/100 WBC (Bld) 27.5 % Invalid Interpretation Code 10.0 - 50.0 % AO Workflow SS MCH (RBC) [Entitic mass] 30.0 pg Invalid Interpretation Code 27.0 - 31.2 pg AO Workflow SS MCHC 34.5 G/dL Invalid Interpretation Code 33.0 - 37.0 G/dL AO Workflow SS MCV (RBC) [Entitic vol] 87.0 fL Invalid Interpretation Code 80.0 - 94.0 fL AO Workflow SS Monocyte, Absolute 0.4 103/mcL Invalid Interpretation Code 0.2 - 1.0 10^3/mcL AO Workflow SS Monocytes/100 WBC (Bld) 5.3 % Invalid Interpretation Code 1.7 - 13.0 % AO Workflow SS Neutrophil, Absolute 5.3 103/mcL Invalid Interpretation Code 2.9 - 6.2 10^3/mcL AO Workflow SS Neutrophils/100 WBC (Bld) 64.0 % Invalid Interpretation Code 37.0 - 80.0 % AO Workflow SS Platelet mean volume (Bld) [Entitic vol] 6.7 fL Invalid Interpretation Code 7.4 - 10.4 fL AO Workflow SS Platelets (Bld) [#/Vol] 405 103/mcL Invalid Interpretation Code 130 - 400 10^3/mcL AO Workflow SS RBC (Bld) [#/Vol] 4.28 106/mcL Invalid Interpretation Code 4.20 - 5.40 10^6/mcL AO Workflow SS WBC (Bld) [#/Vol] 8.2 103/mcL Invalid Interpretation Code 4.6 - 10.8 10^3/mcL AO Workflow SS LABORATORYOrdered By: SYSTEM SYSTEM on 05-02-2022 GFR 86 ml/min/1.73sqm Invalid Interpretation Code AO Chemistry S GFR Non- 71 ml/min/1.73sqm Invalid Interpretation Code AO Chemistry S LABORATORYOrdered By: Opal Li on 12-06-2021 Albumin BCP dye [Mass/Vol] 3.9 G/dL Invalid Interpretation Code 3.4 - 4.8 G/dL AO ADM SS Albumin/Globulin [Mass ratio] 1.1 {ratio} Invalid Interpretation Code 1.1 - 2.5 ratio AO ADM SS ALP [Catalytic activity/Vol] 132 U/L Invalid Interpretation Code 40 - 135 U/L AO ADM SS ALT With P-5'-P [Catalytic activity/Vol] 13 U/L Invalid Interpretation Code 14 - 59 U/L AO ADM SS AST With P-5'-P [Catalytic activity/Vol] 15 U/L Invalid Interpretation Code 10 - 40 U/L AO ADM SS Basophil, Absolute 0.1 103/mcL Invalid Interpretation Code 0.0 - 0.2 10^3/mcL AO Workflow SS Basophils/100 WBC (Bld) 0.7 % Invalid Interpretation Code 0.0 - 2.5 % AO Workflow SS Bilirubin [Mass/Vol] 0.4 mg/dL Invalid Interpretation Code 0.2 - 1.0 mg/dL AO ADM SS Calcium [Mass/Vol] 9.4 mg/dL Invalid Interpretation Code 8.4 - 10.2 mg/dL AO ADM SS Chloride [Moles/Vol] 103 mmol/L Invalid Interpretation Code 98 - 107 mmol/L AO ADM SS Cholesterol [Mass/Vol] 201 mg/dL Invalid Interpretation Code 0 - 200 mg/dL AO ADM SS Cholesterol in HDL [Mass/Vol] 58 mg/dL Invalid Interpretation Code 40 - 60 mg/dL AO ADM SS Cholesterol in LDL [Mass/Vol] 126 mg/dL Invalid Interpretation Code 0 - 130 mg/dL AO ADM SS CO2 [Moles/Vol] 32 mmol/L Invalid Interpretation Code 23 - 31 mmol/L AO ADM SS Creatinine [Mass/Vol] 0.94 mg/dL Invalid Interpretation Code 0.55 - 1.02 mg/dL AO ADM SS Electrolyte Balance 4.0 mEq/L Invalid Interpretation Code 4.0 - 15.0 mEq/L AO ADM SS Eosinophil, Absolute 0.3 103/mcL Invalid Interpretation Code 0.0 - 0.4 10^3/mcL AO Workflow SS Eosinophils/100 WBC (Bld) 4.1 % Invalid Interpretation Code 0.0 - 7.0 % AO Workflow SS Erythrocyte distribution width (RBC) [Ratio] 13.8 % Invalid Interpretation Code 11.5 - 14.5 % AO Workflow SS Globulin 3.4 G/dL Invalid Interpretation Code AO ADM SS Glucose [Mass/Vol] 104 mg/dL Invalid Interpretation Code 80 - 115 mg/dL AO ADM SS Hematocrit (Bld) [Volume fraction] 39.7 % Invalid Interpretation Code 37.0 - 47.0 % AO Workflow SS Hgb 13.6 G/dL Invalid Interpretation Code 12.0 - 16.0 G/dL AO Workflow SS Lymphocyte, Absolute 2.6 103/mcL Invalid Interpretation Code 0.8 - 3.9 10^3/mcL AO Workflow SS Lymphocytes/100 WBC (Bld) 31.8 % Invalid Interpretation Code 10.0 - 50.0 % AO Workflow SS MCH (RBC) [Entitic mass] 29.9 pg Invalid Interpretation Code 27.0 - 31.2 pg AO Workflow SS MCHC 34.2 G/dL Invalid Interpretation Code 33.0 - 37.0 G/dL AO Workflow SS MCV (RBC) [Entitic vol] 87.4 fL Invalid Interpretation Code 80.0 - 94.0 fL AO Workflow SS Monocyte, Absolute 0.5 103/mcL Invalid Interpretation Code 0.2 - 1.0 10^3/mcL AO Workflow SS Monocytes/100 WBC (Bld) 5.8 % Invalid Interpretation Code 1.7 - 13.0 % AO Workflow SS Neutrophil, Absolute 4.7 103/mcL Invalid Interpretation Code 2.9 - 6.2 10^3/mcL AO Workflow SS Neutrophils/100 WBC (Bld) 57.6 % Invalid Interpretation Code 37.0 - 80.0 % AO Workflow SS Platelet 384 103/mcL Invalid Interpretation Code 130 - 400 10^3/mcL AO Workflow SS Platelet mean volume (Bld) [Entitic vol] 6.6 fL Invalid Interpretation Code 7.4 - 10.4 fL AO Workflow SS Potassium [Moles/Vol] 5.5 mmol/L Invalid Interpretation Code 3.5 - 5.1 mmol/L AO ADM SS Protein [Mass/Vol] 7.3 G/dL Invalid Interpretation Code 6.4 - 8.2 G/dL AO ADM SS RBC 4.54 106/mcL Invalid Interpretation Code 4.20 - 5.40 10^6/mcL AO Workflow SS Sodium [Moles/Vol] 139 mmol/L Invalid Interpretation Code 136 - 145 mmol/L AO ADM SS Triglyceride [Mass/Vol] 84 mg/dL Invalid Interpretation Code 0 - 150 mg/dL AO ADM SS Urea nitrogen [Mass/Vol] 13 mg/dL Invalid Interpretation Code 7 - 18 mg/dL AO ADM SS Urea nitrogen/Creatinine [Mass ratio] 14 ratio Invalid Interpretation Code 7 - 27 ratio AO ADM SS WBC 8.1 103/mcL Invalid Interpretation Code 4.6 - 10.8 10^3/mcL AO Workflow SS LABORATORYOrdered By: SYSTEM SYSTEM on 12-06-2021 GFR 74 ml/min/1.73sqm Invalid Interpretation Code AO Chemistry S GFR Non- 61 ml/min/1.73sqm Invalid Interpretation Code AO Chemistry S Monocyte distribution width Auto (Bld) [Entitic vol] Not Performed 1 *NA* (12/06/21 7:09 AM) Invalid Interpretation Code 0.00 - 20.00 AO Hematology S Comment on above: Result Comment: MDW testing performed only on adult ER patients between the ages of 18-89 years. LABORATORYOrdered By: Sadie Moore on 12-06-2021 HbA1c (Bld) [Mass fraction] 5.6 % Invalid Interpretation Code 4.3 - 6.4 % AO ADM SS CT CHEST W IVCONon CT CHEST W IVCON * * *Final Report* * * DATE OF EXAM: Feb 10 2021 11:06AM [facility] 0539 - CT CHEST W IVCON / PROCEDURE REASON: chest * * * * Physician Interpretation * * * * EXAMINATION: CHEST CT WITH CONTRAST CLINICAL HISTORY: Follow-up lung infiltrates Technique: Spiral CT acquisition of the chest from the thoracic inlet to the upper abdomen following IV contrast. MQ: [id number] Contrast: 50 mL Omnipaque [address] Radiation dose: Integrated Dose-length product (DLP) for this visit = 375 mGy*cm CT Dose Reduction Employed: Automated exposure control(AEC) and iterative recon Comparison: 07/19/2020 RESULT: Limitations: None. Lines, tubes, and devices: None. Lung parenchyma and airways: Chronic upper lung predominant bullous emphysema. Previously reported bandlike density in the right upper lobe has not significantly changed. There are postsurgical changes in the left upper lobe and chronic pleural-parenchymal opacities with associated architecture distortion, cavitation, bronchial thickening and bronchiectasis. Previously described air-filled cavities in the left upper lobe appear diminished in size. Pleural space: No pleural effusion or pneumothorax Lower neck, lymph nodes, and mediastinum: No interval growth of mediastinal lymph nodes. A prevascular lymph node measures 1.0 cm/5:60. Enlarged left subpectoral lymph nodes, for example 1.4 cm/5:44. Heart, pericardium, and thoracic vessels: The thoracic aorta and main pulmonary artery are normal in caliber. The cardiac chambers are normal in size. No coronary artery atherosclerotic calcifications are noted, although the study is not optimized for coronary assessment. No pericardial effusion or thickening. Bones and soft tissues: No destructive bone lesion. Chest wall is unremarkable. Upper abdomen: Subcentimeter hepatic lesions too small to further characterize and appears stable/5:153. Fitness Supervisor (topogram) images: No additional findings. IMPRESSION: Bullous emphysema. Previously reported bandlike density in the right upper lobe has not significantly changed. Chronic left upper lobe pleural-parenchymal opacities with associated architecture distortion, cavitation, bronchial thickening and bronchiectasis. DDX includes postinfectious/infl ammatory changes with fibrosis or neoplastic process. Enlarged left subpectoral lymph nodes. Railroad Repairer: PSCB Transcribe Date/Time: Feb 10 2021 3:33P Dictated by : Drew ALVARADO MD This examination was interpreted and the report reviewed and electronically signed by: Drew ALVARADO MD on Feb 10 2021 3:58PM EST [id number] [id number] Normal [facility] Vital Signs Date Time Vital Sign Value Performing Clinician Facility 09-04-2023 09:39-0500 Diastolic Blood Pressure Non-Invasive 76 mm[Hg] EDNA CHANG DO [facility] 09-04-2023 09:39-0500 Heart rate 76 /min EDNA CHANG DO [facility] 09-04-2023 09:39-0500 Respiratory rate 18 /min EDNA CHARLENE DO [facility] 09-04-2023 09:39-0500 Systolic Blood Pressure Non-Invasive 128 mm[Hg] EDNA CHARLENE DO [facility] 09-04-2023 09:31-0500 Diastolic Blood Pressure Non-Invasive 72 mm[Hg] EDNA CHARLENE DO [facility] 09-04-2023 09:31-0500 Heart rate 79 /min EDNA CHARLENE DO [facility] 09-04-2023 09:31-0500 Respiratory rate 19 /min EDNA CHARLENE DO [facility] 09-04-2023 09:31-0500 Systolic Blood Pressure Non-Invasive 126 mm[Hg] EDNA CHARLENE DO [facility] 09-04-2023 09:25-0500 Heart rate 77 /min EDNA CHARLENE DO [facility] 09-04-2023 09:25-0500 Respiratory rate 20 /min EDNA CHARLENE DO [facility] 09-04-2023 09:21-0500 Diastolic Blood Pressure Non-Invasive 68 mm[Hg] EDNA CHARLENE DO [facility] 09-04-2023 09:21-0500 Systolic Blood Pressure Non-Invasive 102 mm[Hg] EDNA CHARLENE DO [facility] 09-04-2023 09:15-0500 Body temperature 96.98 [degF] EDNA CHARLENE DO [facility] 09-04-2023 09:10-0500 Respiratory Rate - Anes 18 br/min EDNA CHARLENE DO [facility] 09-04-2023 09:05-0500 Respiratory Rate - Anes 19 br/min EDNA CHARLENE DO [facility] 09-04-2023 08:31-0500 Body height 165.1 cm EDNA CHARLENE DO [facility] 09-04-2023 08:31-0500 Body temperature 97.52 [degF] EDNA CHARLENE DO [facility] 09-04-2023 08:31-0500 Body weight 85 kg EDNA CHARLENE DO [facility] 09-04-2023 08:31-0500 Heart rate 79 /min EDNA CHARLENE DO [facility] 04-17-2023 07:54-0400 Body height 165.1 cm [employer] Rochelle Arnold [employer] Work Phone: [facility] 04-17-2023 07:54-0400 Body mass index (BMI) [Ratio] 30.6 kg/m2 [employer] Rochelle Arnold [employer] Work Phone: [facility] 04-17-2023 07:54-0400 Body temperature 97.3 [degF] [employer] Rochelle Arnold [employer] Work Phone: [facility] 04-17-2023 07:54-0400 Body weight 83.46 kg [employer] Rochelle Arnold [employer] Work Phone: [facility] 04-17-2023 07:54-0400 Diastolic blood pressure 71 mm[Hg] [employer] Rochelle Arnold [employer] Work Phone: [facility] 04-17-2023 07:54-0400 Heart rate 80 /min [employer] Rochelle Arnold [employer] Work Phone: [facility] 04-17-2023 07:54-0400 Respiratory rate 20 /min [employer] Rochelle Arnold [employer] Work Phone: [facility] 04-17-2023 07:54-0400 SaO2% (BldA) [Mass fraction] 99 % [employer] Rochelle Arnold [employer] Work Phone: [facility] 04-17-2023 07:54-0400 Systolic blood pressure 119 mm[Hg] [employer] Rochelle Arnold [employer] Work Phone: [facility] 01-14-2023 06:42-0400 Body mass index (BMI) [Ratio] 28.8 kg/m2 [employer] Rochelle Arnold [employer] Work Phone: [facility] 01-14-2023 06:42-0400 Body temperature 97 [degF] [employer] Rochelle Arnold [employer] Work Phone: [facility] 01-14-2023 06:42-0400 Body weight 78.47 kg [employer] Rochelle Arnold [employer] Work Phone: [facility] 01-14-2023 06:42-0400 Diastolic blood pressure 80 mm[Hg] [employer] Rochelle Arnold [employer] Work Phone: [facility] 01-14-2023 06:42-0400 Heart rate 87 /min [employer] Rochelle Arnold [employer] Work Phone: [facility] 01-14-2023 06:42-0400 Respiratory rate 18 /min [employer] Rochelle Arnold [employer] Work Phone: [facility] 01-14-2023 06:42-0400 SaO2% (BldA) [Mass fraction] 97 % [employer] Rochelle Arnold [employer] Work Phone: [facility] 01-14-2023 06:42-0400 Systolic blood pressure 129 mm[Hg] [employer] Rochelle Arnold [employer] Work Phone: [facility] 12-27-2022 08:15-0400 Body height 165.[address] Case Mejia Work Phone: [facility] 12-27-2022 08:15-0400 Body weight 83.[address] Case Mejia Work Phone: [facility] 12-27-2022 08:15-0400 Heart rate 80 /min Dr. Case Mejia Work Phone: [facility] 12-27-2022 08:15-0400 Inhaled oxygen concentration 21 % Dr. Case Mejia Work Phone: [facility] 12-27-2022 08:15-0400 SaO2% (BldA) [Mass fraction] 96 % Dr. Case Mejia Work Phone: [facility] Encounters Encounter Date Encounter Type Care Provider Facility Start: 01-01-2025 ambulatory Carolyne Childers ty:[facility] Start: 12-25-2024 ambulatory Carolyne Childers ty:[facility] Start: 11-18-2024 End: 11-18-2024 ambulatory PATY HALKO DO [facility] Start: 11-18-2024 End: 11-18-2024 Patient encounter procedure PATY HALKO DO [facility] Start: 10-29-2024 End: 10-29-2024 ambulatory PATY HALKO DO [facility] Start: 10-29-2024 End: 10-29-2024 Patient encounter procedure PATY HALKO DO [facility] Start: 10-16-2024 End: 10-16-2024 ambulatory PATY HALKO DO [facility] Start: 09-29-2024 End: 09-29-2024 ambulatory PATY HALKO DO [facility] Start: 09-25-2024 End: 09-25-2024 ambulatory PATY HALKO DO [facility] Start: 08-29-2024 End: 08-29-2024 ambulatory PATY ADELITAKO DO [facility] Start: 08-29-2024 End: 08-29-2024 Patient encounter procedure PATY HALKO DO [facility] Start: 06-26-2024 End: 06-26-2024 ambulatory Carolyne Johnson Facility:[facility] Start: 05-20-2024 End: 05-20-2024 ambulatory Gay Norton Facility:[facility] Start: 09-11-2023 End: 09-12-2023 ambulatory PATY ADELITAPANTERA Facility:[facility] Start: 09-11-2023 End: 09-11-2023 Patient encounter procedure PATY ADELITAKO DO [facility] Start: 09-04-2023 End: 09-04-2023 ambulatory EDNA CHANG DO Facility:[facility] Start: 09-04-2023 End: 09-04-2023 Minor Procedure EDNA CHANG DO [facility] Start: 08-28-2023 End: 08-29-2023 ambulatory PATY VERONICA Facility:[facility] Start: 08-28-2023 End: 08-28-2023 Patient encounter procedure PATY UREÑAKO DO [facility] Start: 08-21-2023 End: 08-22-2023 ambulatory PATY GLENYS Facility:[facility] Start: 05-10-2023 End: 05-10-2023 ambulatory [employer] Rochelle Arnold [employer] Work Phone: [facility] Work Phone: Start: 05-10-2023 End: 05-10-2023 Patient encounter procedure [employer] MAN-Venita Arnold [employer] MAN Work Phone: [facility] Work Phone: Start: 04-17-2023 End: 04-17-2023 Patient encounter procedure [employer]-Venita Arnold [employer] [facility] Work Phone: Start: 01-14-2023 End: 01-14-2023 Patient encounter procedure LUIS Arnold NP [facility] Work Phone: Start: 12-28-2022 Non-patient / Non-visit Dr. Apryl Mejia Work Phone: [facility] Start: 12-27-2022 End: 12-27-[address] Case Mejia Work Phone: [facility] Work Phone: Start: 12-27-2022 End: 12-27-[address] [facility] Start: 12-25-2022 Non-patient / Non-visit Dr. Apryl Mejia Work Phone: [facility] Start: 12-24-2022 End: 12-24-[address] Case Mejia Work Phone: [facility] Work Phone: Start: 12-24-2022 End: 12-24-[address] [facility] Start: 05-23-2022 End: 05-23-2022 Patient encounter procedure PATY VERONICA DO [facility] Start: 05-02-2022 End: 05-02-2022 Patient encounter procedure PATY VERONICA DO [facility] Start: 12-06-2021 End: 12-06-2021 Patient encounter procedure PATY VERONICA DO [facility] Procedures Date Procedure Procedure Detail Performing Clinician Start: 05-10-2023 CT of chest [employer] MAN-Venita Arnold [employer] Work Phone: Start: 03-14-2020 Colonoscopy PATY GRADY DO Start: 07-08-1998 Lung structure (body structure) PATY VERONICA DO Comment on above: COLLAPSED CT PLACED Immunizations Immunization Date Immunization Notes Care Provider Fa cili 03-21-2024 influenza virus vacc ine, unspecified formulation PATY VERONICA DO [facility] 03-21-2024 SARS-CoV-2 (COVID-19 ) [id number] PATY VERONICA DO [facility] 08-16-2023 pneumococcal 20-corona nt conjugate vaccine PATY VERONICA DO [facility] 04-26-2023 tetanus toxoid, redu marimar diphtheria toxoid, and acellular pertussis vaccine, adsorbed PATY VERONICA DO [facility] 04-20-2023 [id number](tonancy laws [id number])bi vac PATY VERONICA DO [facility] 03-09-2023 influenza virus vacc ine, unspecified formulation PATY VERONICA DO [facility] 02-22-2023 Misc Vaccine 1 PATY VERONICA DO [facility] Comment on above: Result Comment: RSV -[facility] 07-08-2022 RSV vaccine preF3, recombinant 2 PATY VERONICA DO [facility] Comment on above: Result Comment[facility] influenza, injectabl e, quadrivalent, contains preservative; Translations: [Fluarix PF Quadrivalent ] PATY VERONICA DO [facility] 10-27-2021 hepatitis B vaccine, adult dosage PATY VERONICA DO [facility] Comment on above: Result Comment: [facility] 05-31-2021 hepatitis B vaccine, adult dosage PATY VERONICA DO [facility] Comment on above: Result Comment: [facility] 05-04-2021 COVID-19, mRNA, LNP- S, PF, 30 mcg/0.3 mL dose; Translations: [K[employer]-Bio[employer] COVID-19 Vaccine] PATY VERONICA DO [facility] 04-29-2021 hepatitis B vaccine, adult dosage PATY VERONICA DO [facility] Comment on above: Result Comment: [facility] 04-29-2021 hepatitis B vaccine, unspecified formulation PATY VERONICA DO [facility] Comment on above: Result Comment: [facility] 04-16-2021 influenza virus vacc ine, unspecified formulation PATY VERONICA DO [facility] 04-11-2021 zoster vaccine recombinant PATY VERONICA DO [facility] Comment on above: Result Comment: [facility] 01-31-2021 zoster vaccine recombinant PATY VERONICA DO [facility] 01-17-2021 SARS-CoV-2 mRNA (tozinameran) vaccine [facility]Y VERONICA DO [facility] [facility] 10-22-2020 SARS-CoV-2 mRNA (tozinameran) vaccine PATY VERONICA DO [facility] 09-30-2020 SARS-CoV-2 mRNA (tozinameran) vaccine PATY VERONICA DO [facility] 05-15-2019 influenza virus vacc ine, unspecified formulation PATY VERONICA DO [facility] 05-16-2018 pneumococcal polysaccharide vaccine, 23 valent PATY VERONICA DO [facility] 08-12-2017 influenza, injectabl e, quadrivalent, preservative free PATY VERONICA DO [facility] 09-05-2016 tetanus and diphther ia toxoids, adsorbed, preservative free, for adult use (5 Lf of tetanus toxoid and 2 Lf of diphtheria toxoid) PATY VERONICA DO [facility] 09-05-2016 tetanus toxoid, redu marimar diphtheria toxoid, and acellular pertussis vaccine, adsorbed PATY VERONICA DO [facility] 09-04-2016 tetanus and diphther ia toxoids, adsorbed, preservative free, for adult use (5 Lf of tetanus toxoid and 2 Lf of diphtheria toxoid) PATY VERONICA DO [facility] 04-27-2008 influenza virus vacc ine, unspecified formulation PATY VERONICA DO [facility] 05-07-2007 influenza virus vacc ine, unspecified formulation PATY VERONICA DO [facility] Payers Date Payer Category Payer Unknown [id number] 2024 Self-pay [id number] 2023 Unknown [id number] 2023 Unknown [id number] 1960 Unknown [id number] 2.16.8 40.1.351903.3.579.2. 1961 Unknown [id number] 2.16.8 40.1.767683.3.579.2. 1961 Unknown [id number] 2.16.8 40.1.673472.3.579.2. 1961 Unknown [id number] 2.16.8 40.1.464174.3.579.2. 1961 Unknown [id number] 2.16.8 40.1.629401.3.579.2. 1961 Unknown [id number] 2.16.8 40.1.061191.3.579.2. 1961 Unknown [id number] 2.16.8 40.1.499725.3.579.2. 1961 Unknown [id number] 2.16.8 40.1.958096.3.579.2 1961 Unknown [id number] 2.16.8 40.1.701506.3.579.2.627 1960 Unknown [id number] 2.16.8 40.1.983343.3.579.2.627 Unknown [facility] [id number] Unknown [id number] 2.16.8 40.1.597117.3.579.2.462 Unknown [id number] 2.16.8 40.1.886661.3.579.2.462 Unknown [id number] 2.16.8 40.1.606297.3.579.2.462 Unknown [id number] 2.16.8 40.1.889661.3.579.2.462 Social History Date Type Detail Facility Start: 03-10-2020 Tobacco smoking status Ex-smoker (fi nding) [facility] Start: 1960 Sex Assigned At Female A [facility] Start: 07-31-2022 End: 04-17-2023 Tobacco smoking status NVIS Unknown if ever smoked [facility] Sexual Orientation [facility] Start: 06-02-2019 Sex Female (finding) [facility] Functional Status Date Assessment Result Facility 09-04-2023 Functional Status Maintained [facility] Mental Status Date Assessment Result Facility 09-04-2023 Mental Status Oriented x 4 [facility] Clinical Notes 02-10-2021 to 09-11-2023 Note Date & Type Note Facility 09-11-2023 Note ORIGINAL EXAMINATION: BONE DENSITOMETRY 09/11/2023 2:36 pm TECHNIQUE: A bone density dual x-ray absorptiometry (DEXA) scan was performed of the axial (e.g. hips, spine) and/or appendicular (e.g. radius) skeleton as appropriate on a Hologic system. COMPARISON: 02/17/2021 HISTORY: ORDERING SYSTEM PROVIDED HISTORY: Reason for Exam: Osteoporosis Screening Postmenopausal FINDINGS: BMD (g/cm2) Lumbar Spine L1-L4: 0.918. T Score Lumbar Spine L1-L4: -1.2 BMD (g/cm2) Left Femoral Neck: 0.635. T Score Left Femoral Neck: -1.9 BMD (g/cm2) Left Hip: 0.778. T Score Left Hip: -1.3 BMD Change from previous Hip: 1.8% BMD Change from previous Lumbar spine: -2.8% FRAX: 10 year fracture risk assessment Major osteoporotic fracture: 9.5% Hip fracture: 1.2% IMPRESSION: Osteopenia by WHO criteria. World Health Organization criteria: (Comparing with young normal sex matched population) - Normal: T-score at or above -1 SD (standard deviation) - Osteopenia: T-score between -1 and -2.5 SD - Osteoporosis: T-score at or below -2.5 SD The NOF recommends that FDA-approved medical therapies be considered in post-menopausal women and men age >/= 50 years with a: * Hip or vertebral fracture, or * T-score of /= 20% for major osteoporotic fractures or * >/= 3% for hip fractures All treatment decisions require clinical judgement and consideration of individual patient factors, including patient preferences, comorbidities, previous drug use, risk factors not captured in the FRAX registered model (e.g., frailty, falls, vitamin D deficiency, increased bone turnover, interval significant decline in bone density) and possible under- or over-estimation of fracture risk by FRAX. I have personally reviewed the images of this examination and agree with the resident's findings and interpretation. Interpreted by: Estela Meza Preliminary Report By: Too Salinas Electronically signed By Estela Meza Dictated Date: 09/11/2023 3:06:29 PM Prelim Date: 09/11/2023 3:21:15 PM Sign Date: 09/11/2023 3:21:15 PM Ordering Provider: [facility] 09-04-2023 Evaluation + Plan note Extrac akhil from: Title:Clinical Document Author:EDNA CHANG ate:09/04/23 [place] ADMISSION HISTORY AN D PHYSICIAL CHIEF COMPLAINT: Colorectal cancer screening HISTORY OF PRESENT ILLNESS: Colorectal cancer screening REVIEW OF SYSTEMS: Constitutional: denies weight loss Cardiovascular:denies chest pain, palpitations Respiratory:denies shortness of breath Gastrointestinal:no abd pain Musculoskeletal: no arthralgias Skin: no rashes ACTIVE PROBLEMS: (31) Anxiety (76542810) BMI 30.0-30.9,adult (052788191) Cervical cancer screening (9991138666) Chronic bronchitis (617498553) COPD (chronic obstructive pulmonary disease) (72247607) Elevated fasting glucose (060985759) Emphysema lung (785662604) Encounter for well adult exam with abnormal findings (266052874) Family history of uterine cancer (0497194352) Former smoker (90055666) GERD (gastroesophageal reflux disease) (245676363) Immunity status testing (284070202) Immunization due (647194181) Ingrown toenail of both feet (1143927936) Lesion of cervix (835592645) Moderate persistent asthma (4973308436) Nodule of right lung (306953562) Obese (8652062586) Onychomycosis (7484497507) Organizing pneumonia (067533743) Osteopenia (952309097) Overweight (366917190) Palpitations (673697825) Plantar fasciitis, bilateral (433827219) Pleuritic pain (4698474) Rib pain (334047272) Screening due (671684988) Screening for breast cancer (070709000) Screening for cardiovascular condition (090538504) Screening for osteoporosis (030333035) Vitamin D deficiency (00192959) MEDICATIONS: Active Inpt Meds: None Active PRN Meds: None One Time Meds: None Active IV Meds: None ALLERGIES: (1) NKA FAMILY HISTORY: SOCIAL HISTORY: PHYSICAL EXAM: VITALS: No Data Available 24 Hr Tmax: No Data Available 36 Hr Tmax: No Data Available Vital Signs are the last 5 in the past 48 hours. Weights display the last 5 within 7 days. Initial Wt: No Data Available Current Wt: No Data Available physical exam alert and oriented cardio; regular without murmur pulm; clear abd; soft, nontender LABS: No 36hr Lab Data DIAGNOSTICS: IMPRESSION: Colorectal cancer screening PLAN: Proceed with colonoscopy as discussed in the office Future Appointments Appointment Date:09/11/2023 02:00:00 PM Scheduled Provider: Location:[facility] Appointment Type:BD Bone Density DEXA Axial Skeleton Appointment Date:09/11/2023 02:30:00 PM Scheduled Provider: Location:[facility] Appointment Type:[place] Mammogram Screening Bilateral w/ Dread Appointment Date:08/21/2024 10:30:00 AM Scheduled Provider:PATY VERONICA DO [facility] Appointment Type:PC Wellness Annual Future Scheduled Tests Radiology* MA Mammo Screening Bilateral w/ Dread 09/11/23 * BD Bone Density DEXA Axial Skeleton 09/11/23 [facility] 02-28-2024 Hospital Discharge instructions Patient Education 09/04/2023 09:24:49 Monitored Anesthesia Care, Care After Monitored Anesthesia Care, Care After These instructions provide you with information about caring for yourself after your procedure. Your health care provider may also give you more specific instructions. Your treatment has been plannedaccording to current medical practices, but problems sometimes occur. Call your health care provider if you have any problems or questions after your procedure. What can I expect after the procedure? After your procedure, you may: Feel sleepy for several hours. Feel clumsy and have poor balance for several hours. Feel forgetful about what happened after the procedure. Have poor judgment for several hours. Feel nauseous or vomit. Have a sore throat if you had a breathing tube during the procedure. Follow these instructions at home: For at least 24 hours after the procedure: Have a responsible adult stay with you. It is important to have someone help care for you until youare awake and alert. Rest as needed. Do not: ?Participate in activities in which you could fall or become injured. ?Drive. ?Use heavy machinery. ?Drink alcohol. ?Take sleeping pills or medicines that cause drowsiness. ?Make important decisions or sign legal documents. ?Take care of children on your own. Eating and drinking Follow the diet that is recommended by your health care provider. If you vomit, drink water, juice, or soup when you can drink without vomiting. Make sure you have little or no nausea before eating solid foods. General instructions Take gjkc-lds-bnyvlpx and prescription medicines only as told by your health care provider. If you have sleep apnea, surgery and certain medicines can increase your risk for breathing problems. Follow instructions from your health care provider about wearing your sleep device: ?Anytime you are sleeping, including during daytime naps. ?While taking prescription pain medicines, sleeping medicines, or medicines that make you drowsy. If you smoke, do not smoke without supervision. Keep all follow-up visits as told by your health care provider. This is important. Contact a health care provider if: You keep feeling nauseous or you keep vomiting. You feel light-headed. You develop a rash. You have a fever. Get help right away if: You have trouble breathing. Summary For several hours after your procedure, you may feel sleepy and have poor judgment. Have a responsible adult stay with you for at least 24 hours or until you are awake and alert. This information is not intended to replace advice given to you by your health care provider. Make sure you discuss any questions you have with your health care provider. Document Released: 10/14/2016 Document Revised: 09/22/2018 Document Reviewed: 10/14/2016 [employer] Patient Education 2020 Red [employer] App. 09/04/2023 09:24:42 Colonoscopy, Adult, Care After, Rbtv-ps-Iilq Colonoscopy, Adult, Care After This sheet gives you information about how to care for yourself after your procedure. Your doctor may also give you more specific instructions. If you have problems or questions, call your doctor. What can I expect after the procedure? After the procedure, it is common to have: A small amount of blood in your poop for 24 hours. Some gas. Mild cramping or bloating in your belly. Follow these instructions at home: General instructions For the first 24 hours after the procedure: ?Do not drive or use machinery. ?Do not sign important documents. ?Do not drink alcohol. ?Do your daily activities more slowly than normal. ?Eat foods that are soft and easy to digest. Take nwht-xof-ctvehfl or prescription medicines only as told by your doctor. To help cramping and bloating: Try walking around. Put heat on your belly (abdomen) as told by your doctor. Use a heat source that your doctor recommends, such as a moist heat pack or a heating pad. ?Put a towel between your skin and the heat source. ?Leave the heat on for 20 30 minutes. ?Remove the heat if your skin turns bright red. This is especially important if you cannot feel pain, heat, or cold. You can get burned. Eating and drinking Drink enough fluid to keep your pee (urine) clear or pale yellow. Return to your normal diet as told by your doctor. Avoid heavy or fried foods that are hard to digest. Avoid drinking alcohol for as long as told by your doctor. Contact a doctor if: You have blood in your poop (stool) 2 3 days after the procedure. Get help right away if: You have more than a small amount of blood in your poop. You see large clumps of tissue (blood clots) in your poop. Your belly is swollen. You feel sick to your stomach (nauseous). You throw up (vomit). You have a fever. You have belly pain that gets worse, and medicine does not help your pain. Summary After the procedure, it is common to have a small amount of blood in your poop. You may also have mild cramping and bloating in your belly. For the first 24 hours after the procedure, do not drive or use machinery, do not sign important documents, and do not drink alcohol. Get help right away if you have a lot of blood in your poop, feel sick to your stomach, have a fever, or have more belly pain. This information is not intended to replace advice given to you by your health care provider. Make sure you discuss any questions you have with your health care provider. Document Released: 07/27/2011 Document Revised: 04/24/2018 Document Reviewed: 03/18/2017 [employer] Patient Education 2020 Red e App. Follow Up Care 08/30/2023 12:03:14 With:EDNA CHANG DO, Clinical Gastroenterology Address: [address] [place] [address] [place] [address]- [phone] When: Unknown Comments:CALL DR CHANG WITH ANY QUESTIONS OR CONCERNS. GO TO THE EMERGENCY ROOM WITH ANY URGENT CONCERNS. NO POLYPS WERE FOUND TODAY With:PATY VERONICA DO Address: [address] [place] [address] [place] [address]- [phone] When: Unknown [facility] 02-28-2024 Note Discharge Instructions Thank you for allowing [employer] to assist you with your healthcare needs. The following is importantdischarge information regarding your hospital visit. Your Care Team PATY VERONICA DO, DR. Your Diagnosis CLEAN COLONOSCOPY What to do next Instructions From Your Doctor Repeat colonoscopy 8 to 10 years Scheduled Follow-Up Appointments Appointment Type When With Where Contact InformationBD Bone Density DEXA Axial Skeleton 09/11/2023 02:[address] [facility] Radiology [phone] [place] Mammogram Screening Bilateral w/ Dread 09/11/2023 02:[address] [facility] Radiology [phone] PC Wellness Annual 08/21/2024 10:30 AM EST PATY VERONICA DO [facility] Follow Up Appointments Follow Up with EDNA CHANG DO, Clinical Gastroenterology When Why: CALL DR CHANG WITH ANY QUESTIONS OR CONCERNS. GO TO THE EMERGENCY ROOM WITH ANY URGENT CONCERNS. NO POLYPS WERE FOUND TODAY Where: [address] [facility] [place] [address]- [phone] Follow Up with PATY VERONICA DO When Where: [address] [facility] [place] [address] [phone] The Following Activity and Diet Have Been Ordered for You Discharge Activity - Ordered -- Driving Restricted, No driving until tomorrow, 09/04/23 8:30:00 EST Discharge Return to Work, School, or Sports (Discharge Return to status) - Ordered -- May return to: work, 09/04/23 8:30:00 EST Discharge Diet - Ordered -- Type of Diet: Regular Diet, 09/04/23 8:30:00 EST The Following Equipment Has Been Ordered for You No qualifying data available. Allergies NKA Medications Please ask your primary doctor or pharmacist before taking any other medication not listed, including over the counter drugs, herbal medications, vitamins and or supplements as they may interact withyour home medications. What How Much When Instructions Last Dose Unchanged albuterol (Ventolin HFA MDI (90 mcg/ inh) inhalation aerosol) 2 puff(s) by inhalation Four (4) times a day as needed for as needed for wheezing Unchanged ascorbic acid (Vitamin C 1000 mg oral tablet) 1 tab(s) by mouth Once a day Unchanged aspirin (aspirin 81 mg oral tablet (chewable)) 1 tab(s) by mouth Once a day Unchanged cholecalciferol (Vitamin D3 25 mcg (1000 intl units) oral capsule) See instructions 1 cap(s) Oral Daily Unchanged fluticasone/ umeclidinium/ vilanterol (Trelegy Ellipta 100 mcg-62.5 mcg-25 mcg/ inh inhalation powder) 1 puff(s) by inhalation Once a day Duration: 90 Days at the same time every day. Following administration, rinse mouth with water after use (do not swallow). Unchanged guaiFENesin (Mucinex 600 mg oral tablet, extended release) 1 tab(s) by mouth Every 12 hours Duration: 90 Days Unchanged herbal/ nutritional product (turmeric 500 mg oral capsule) 1 cap by mouth Every day Unchanged ibuprofen (ibuprofen 200 mg oral capsule) See instructions cap(s) mg Oral q6hr Unchanged magnesium oxide (magnesium oxide 400 mg oral tablet) 1 tab(s) by mouth Once a day Unchanged magnesium sulfate/ potassium sulfate/ sodium sulfate (SUPREP magnesium sulfate/ potassiumsulfate/ sodium sulfate 1.6 g-3.13 g-17.5 g/ 177 mL oral liquid) as directed by mouth As Directed as needed for bowel preparation Take day before colonoscopy as directed, instructions given by office Unchanged [facility] Medication (mag well) Unchanged multivitamin (Multivitamin) 1 tab(s) by mouth Every day Unchanged multivitamin with minerals (Calcium 600+D Plus Minerals) 1 tab(s) Chewed Once a day Unchanged multivitamin with minerals (Calcium, Magnesium and Zinc oral tablet) 1 tab(s) by mouth Once a day Unchanged omeprazole (omeprazole 40 mg oral delayed release capsule) 1 cap by mouth Once a day Duration: 90 Days Please take this list to your next doctor s visit. Bring all medications you take, including over the counter medications, herbals and other supplements with you to your doctor s visit. Patients and families are reminded to discard old lists and to update any records with all medication providers or retail pharmacies. Education Materials Monitored Anesthesia Care, Care After These instructions provide you with information about caring for yourself after your procedure. Your health care provider may also give you more specific instructions. Your treatment has been plannedaccording to current medical practices, but problems sometimes occur. Call your health care provider if you have any problems or questions after your procedure. What can I expect after the procedure? After your procedure, you may: Feel sleepy for several hours. Feel clumsy and have poor balance for several hours. Feel forgetful about what happened after the procedure. Have poor judgment for several hours. Feel nauseous or vomit. Have a sore throat if you had a breathing tube during the procedure. Follow these instructions at home: For at least 24 hours after the procedure: Have a responsible adult stay with you. It is important to have someone help care for you until youare awake and alert. Rest as needed. Do not: ? Participate in activities in which you could fall or become injured. ? Drive. ? Use heavy machinery. ? Drink alcohol. ? Take sleeping pills or medicines that cause drowsiness. ? Make important decisions or sign legal documents. ? Take care of children on your own. Eating and drinking Follow the diet that is recommended by your health care provider. If you vomit, drink water, juice, or soup when you can drink without vomiting. Make sure you have little or no nausea before eating solid foods. General instructions Take toky-fzv-ifydvyz and prescription medicines only as told by your health care provider. If you have sleep apnea, surgery and certain medicines can increase your risk for breathing problems. Follow instructions from your health care provider about wearing your sleep device: ? Anytime you are sleeping, including during daytime naps. ? While taking prescription pain medicines, sleeping medicines, or medicines that make you drowsy. If you smoke, do not smoke without supervision. Keep all follow-up visits as told by your health care provider. This is important. Contact a health care provider if: You keep feeling nauseous or you keep vomiting. You feel light-headed. You develop a rash. You have a fever. Get help right away if: You have trouble breathing. Summary For several hours after your procedure, you may feel sleepy and have poor judgment. Have a responsible adult stay with you for at least 24 hours or until you are awake and alert. This information is not intended to replace advice given to you by your health care provider. Make sure you discuss any questions you have with your health care provider. Document Released: 10/14/2016 Document Revised: 09/22/2018 Document Reviewed: 10/14/2016 [employer] Patient Education 2020 Red e App. Colonoscopy, Adult, Care After This sheet gives you information about how to care for yourself after your procedure. Your doctor may also give you more specific instructions. If you have problems or questions, call your doctor. What can I expect after the procedure? After the procedure, it is common to have: A small amount of blood in your poop for 24 hours. Some gas. Mild cramping or bloating in your belly. Follow these instructions at home: General instructions For the first 24 hours after the procedure: ? Do not drive or use machinery. ? Do not sign important documents. ? Do not drink alcohol. ? Do your daily activities more slowly than normal. ? Eat foods that are soft and easy to digest. Take dzmv-plh-jczvzya or prescription medicines only as told by your doctor. To help cramping and bloating: Try walking around. Put heat on your belly (abdomen) as told by your doctor. Use a heat source that your doctor recommends, such as a moist heat pack or a heating pad. ? Put a towel between your skin and the heat source. ? Leave the heat on for 20 30 minutes. ? Remove the heat if your skin turns bright red. This is especially important if you cannot feel pain, heat, or cold. You can get burned. Eating and drinking Drink enough fluid to keep your pee (urine) clear or pale yellow. Return to your normal diet as told by your doctor. Avoid heavy or fried foods that are hard to digest. Avoid drinking alcohol for as long as told by your doctor. Contact a doctor if: You have blood in your poop (stool) 2 3 days after the procedure. Get help right away if: You have more than a small amount of blood in your poop. You see large clumps of tissue (blood clots) in your poop. Your belly is swollen. You feel sick to your stomach (nauseous). You throw up (vomit). You have a fever. You have belly pain that gets worse, and medicine does not help your pain. Summary After the procedure, it is common to have a small amount of blood in your poop. You may also have mild cramping and bloating in your belly. For the first 24 hours after the procedure, do not drive or use machinery, do not sign important documents, and do not drink alcohol. Get help right away if you have a lot of blood in your poop, feel sick to your stomach, have a fever, or have more belly pain. This information is not intended to replace advice given to you by your health care provider. Make sure you discuss any questions you have with your health care provider. Document Released: 07/27/2011 Document Revised: 04/24/2018 Document Reviewed: 03/18/2017 [employer] Patient Education 2020 [employer] Additional Information VACCINATE! IT SAVES LIVES! Members of the community who have not yet received the COVID-19 vaccine and would like to receive it can visit one of [facility] vaccine clinics. There are many vaccine clinic locations within the [facility]. For locations and available times, please visit [email or web address] It is important to note that some COVID mobile vaccine clinics are held outdoors and may be canceled in rainy or stormy conditions. To learn more about pediatric vaccinations (ages 5-11), we invite you to visit the [employer] webpage. [email or web address] learn more about the COVID-19 vaccine, we invite you to visit the CDC website for a list of frequently asked questions.https://www.cdc.gov/coronavirus/2019-ncov/vaccines/faq.html [email or web address] Patient Portal Access Instructions: Stay connected with your healthcare team and access your personal medical information anytime with the [email or web address] Patient Portal. Please follow the directions below to create your [email or web address] account: 1.Access the email account you provided upon registration to the hospital/physician office.2.Look for an invitation email from [facility].3.Open the email and access the invitation link: AcceptInvitation to ElleLOAG.4.Fill in the required fulton to create your account. To access your account, visit [email or web address]. Click the blue button labeled Access Patient Portal and then log in with the username and password that you created in the steps above. You will be able to view your test results, lab results, a summary of your visits, upcoming appointments and more. There is also a convenient messaging option where you can send secure messages to your p dylanvider. In addition, you will have the ability to download any documents or summaries to your computer and/or send the information securely to a physician. Remember that your healthcare information is confidential, so carefully consider who you will allowto register on the [facility] for access to your information. You can also access the [facility] on the [employer] Anywhere ruddy. Simply click on Patient Portal and then log into your account. If you would like to receive a full copy of your medical records, please contact the [facility] Medical Records Department by calling [phone], Saturday through Saturday between 8 a.m. and 4:30 p.m. HOW TO SAFELY DISPOSE OF PRESCRIPTION MEDICATIONS Please use one of the following methods to safely dispose of your unused medications. 1.Use a drug disposal kit: the drug disposal pouch allows you to safely discard your old and unuseddrugs. Ask your nurse to give you one when you are discharged.2.Visit a local take-back location: Many local pharmacies and police departments have programs that collect old and unwanted prescriptiondrugs. Call your local pharmacy or go to http://[employer]/3W2Ev7w to find one close to you.3.Make use of household items: Use cat litter or old coffee grounds to dispose medications if other options arenot available. Mix your drugs with these household products, seal them in an airtight container andthrow it into the garbage. Call [facility]: [phone] to be sure your drugs can be disposed of in this way. Some medicines may require a different approach.4.Never flush your medications down the toilet. IF YOU HAVE BEEN PRESCRIBED AN OPIOID FOR PAIN If you have been prescribed an opioid (such as hydrocodone, oxycodone or morphine), it is critical to understand the possible side effects and risks of opioid pain medications. Even when taken as directed, opioids can have several side effects including: Tolerance, meaning you might need to take more of a medication for the same pain relief. Nausea, vomiting and/or constipation. Sleepiness, dizziness, dry mouth, confusion, depression or itching. Physical dependence, meaning you have withdrawal symptoms when a medication is stopped, can develop within a few days. KNOW YOUR RESPONSIBILITIES It is important to know exactly how much and how often to take the opioid pain medications you are prescribed. Never take opioids in higher amounts or more often than prescribed. Do not combine opioids with alcohol or other drugs that cause drowsiness, such as benzodiazepines, also known as benzos, including diazepam and alprazolam, muscle relaxants or sleep aids. Never sell or share prescription opioids. This is illegal. Store opioids in a secure place and out of reach of others (including children, family, friends and visitors). The last page of this document has been signed and retained as a CHART COPY. Signatures Patient Education Materials Monitored Anesthesia Care, Care After Colonoscopy, Adult, Care After, Orlh-vo-Mvvu Medication Leaflets My discharge plan and instructions have been reviewed and explained to me and I,SANJUANA CALVO understand my current condition and have read and understand these discharge instructions. I have received a written copy of the plan/instructions. If I have questions, I am aware that I should contact my doctor. 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 Respiratory function: lungs are clear to auscultation. Respiratory support: none. CV function: Normal rate. Cardiovascular support: none. Pain. Nausea status: denies nausea. Postoperative hydration status: within normal limits. Digitally Signed by LILLIE DOE on 09/04/2023 09:14 AM [facility]02-28-2024 Anesthesiology Consult note Patient: SANJUANA CALVO Age: 63 years Sex: Female : 1960 Associated Diagnoses: None Author: LILLIE DOE Preoperative Information Time of last food or liquid consumption: 09/04/2023 03:00:00 Anesthesia history Patient's history: negative. Family's history: negative. Review of Systems Ear/Nose/Mouth/Throat: Negative. Respiratory: copd, emphysema, palpitations, asthma, former smoker. Gastrointestinal: Reflux, obese. Genitourinary: Negative. Endocrine: pre diabetic. Musculoskeletal: Negative. Integumentary: Negative. Neurologic: anxiety. Health Status Allergies: Allergic Reactions (Selected) NKA, Allergies (1) ActiveReaction NKANone Documented Current medications: (Selected) Inpatient Medications Ordered Lactated Ringers Infusion 1,000 mL: 20 mL/hr, Intravenous Prescriptions Prescribed Mucinex 600 mg oral tablet, extended release: 600 mg, 1 tab(s), Oral, q12h, for 90 day(s), 180 tab(s), 1 Refill(s) SUPREP magnesium sulfate/potassium sulfate/sodium sulfate 1.6 g-3.13 g-17.5 g/177 mL oral liquid...: as directed, Oral, AsDirected, Take day before colonoscopy as directed, instructions given by office, PRN: bowel preparation, 354 mL, 0 Refill(s) Trelegy Ellipta 100 mcg-62.5 mcg-25 mcg/inh inhalation powder: 1 puff(s), Inhalation, qDay, for 90 day(s), at the same time every day. Following administration, rinse mouth with water after use (do not swallow)., 3 EA, 1 Refill(s) Ventolin HFA MDI (90 mcg/inh) inhalation aerosol: 2 puff(s), Inhalation, QID, PRN: as needed for wheezing, 6.7 gram(s), 5 Refill(s) omeprazole 40 mg oral delayed release capsule: 40 mg, 1 cap(s), Oral, qDay, for 90 day(s), 90 cap(s), 1 Refill(s) Documented Medications Documented Calcium 600+D Plus Minerals: 1 tab(s), Chewed, qDay, 0 Refill(s) Calcium, Magnesium and Zinc oral tablet: 1 tab(s), Oral, qDay, 30 tab(s), 0 Refill(s) Multivitamin: 1 tab(s), Oral, Daily, 0 Refill(s) Vitamin C 1000 mg oral tablet: 1,000 mg, 1 tab(s), Oral, qDay, 30 tab(s), 0 Refill(s) Vitamin D3 25 mcg (1000 intl units) oral capsule: See Instructions, 1 cap(s) Oral Daily, 0 Refill(s) aspirin 81 mg oral tablet (chewable): 81 mg, 1 tab(s), Oral, qDay, 30 tab(s), 0 Refill(s) ibuprofen 200 mg oral capsule: See Instructions, cap(s) mg Oral q6hr, 0 Refill(s) mag well: 0 Refill(s) magnesium oxide 400 mg oral tablet: 400 mg, 1 tab(s), Oral, qDay, 0 Refill(s) turmeric 500 mg oral capsule: 500 mg, 1 cap(s), Oral, Daily, 0 Refill(s), Medications (1) Active Scheduled: (0) Continuous: (1) Lactated Ringers 1,000 mL 1,000 mL, Intravenous, 20 mL/hr PRN: (0) Problem list: Medical Anxiety / SNOMED CT 42591586 / Confirmed Ingrown toenail of both feet / SNOMED CT 1353178970 / Confirmed BMI 30.0-30.9,adult / SNOMED CT 364995341 / Confirmed Cervical cancer screening / SNOMED CT 3600869924 / Confirmed Chronic bronchitis / SNOMED CT 013249796 / Confirmed COPD (chronic obstructive pulmonary disease) / SNOMED CT 84255378 / Confirmed Former smoker / SNOMED CT 62733504 / Confirmed Family history of uterine cancer / SNOMED CT 3434030479 / Confirmed GERD (gastroesophageal reflux disease) / SNOMED CT 867530769 / Confirmed Elevated fasting glucose / SNOMED CT 425310478 / Confirmed Immunization due / SNOMED CT 755905220 / Confirmed Lesion of cervix / SNOMED CT 666698526 / Confirmed Nodule of right lung / SNOMED CT 510238683 / Confirmed Moderate persistent asthma / SNOMED CT 2739642913 / Confirmed Obese / SNOMED CT 5490151586 / Confirmed Onychomycosis / SNOMED CT 9375926577 / Confirmed Organizing pneumonia / SNOMED CT 033183817 / Confirmed Osteopenia / SNOMED CT 637708553 / Confirmed Overweight / SNOMED CT 360341889 / Confirmed Palpitations / SNOMED CT 075079491 / Confirmed Screening for cardiovascular condition / SNOMED CT 630774751 / Confirmed Encounter for well adult exam with abnormal findings / SNOMED CT 205208398 / Confirmed Immunity status testing / SNOMED CT 396425471 / Confirmed Screening for breast cancer / SNOMED CT 918370314 / Confirmed Screening for osteoporosis / SNOMED CT 168244918 / Confirmed Plantar fasciitis, bilateral / SNOMED CT 015172999 / Confirmed Pleuritic pain / SNOMED CT 3168441 / Confirmed Emphysema lung / SNOMED CT 882061830 / Confirmed Rib pain / SNOMED CT 975542052 / Confirmed Screening due / SNOMED CT 248264326 / Confirmed Vitamin D deficiency / SNOMED CT 48286844 / Confirmed, Active Problems (31) Anxiety BMI 30.0-30.9,adult Cervical cancer screening Chronic bronchitis COPD (chronic obstructive pulmonary disease) Elevated fasting glucose Emphysema lung Encounter for well adult exam with abnormal findings Family history of uterine cancer Former smoker GERD (gastroesophageal reflux disease) Immunity status testing Immunization due Ingrown toenail of both feet Lesion of cervix Moderate persistent asthma Nodule of right lung Obese Onychomycosis Organizing pneumonia Osteopenia Overweight Palpitations Plantar fasciitis, bilateral Pleuritic pain Rib pain Screening due Screening for breast cancer Screening for cardiovascular condition Screening for osteoporosis Vitamin D deficiency Histories Past Medical History: Resolved Pneumonia (563053818): Resolved. Family History: Cancer Sister Comments: 05/02/2021 9:49 PATY LINDQUIST DO uterine cancer Diabetes mellitus Mother Heart disease Mother Cancer Brother Comments: 02/21/2018 11:52 Jia Jama RN LUNG Sister Comments: 02/21/2018 11:52 Jia Jama RN STOMACH Procedure history: Colonoscopy (006466646) on 03/14/2020 at 59 Years. Lung (89344837) in 1998 at 39 Years. Comments: 03/10/2020 15:[address] PLACED 02/21/2018 11:51 Jia Jama RN COLLAPSED Social History Social & Psychosocial Habits Alcohol 4Risk Assessment: Denies Alcohol Use 08/28/2023 Use: Never Substance Abuse 4Risk Assessment: Denies Substance Abuse 08/28/2023 Use: Never Tobacco 08/28/2023 Tobacco Use: Former smoker, quit more, QUIT 5 YEARS AGO Stopped at age: 54 Years Home/Environment 08/28/2023 Domestic Concerns Denies Living situation: Home with assistance Lives In Multilevel home Current Home Treatments None Special Services and Community Resources None Other risks in environment: minimal smoke exposure Financial concerns: No Marital Status of Patient if Patient Independent Adult: Unmarried Comment: Edwin Case- significant other - 01/19/2020 17:34 - Gay Leary RN Nutrition/Health 09/04/2023 Type of diet: Regular Appetite Excellent Eating Difficulties None . Physical Examination Vital Signs 09/04/2023 8:31 EST Temperature Temporal Artery 36.4 DegC Peripheral Pulse Rate 79 bpm Respiratory Rate 18 br/min Systolic Blood Pressure Non-Invasive 129 mmHg Diastolic Blood Pressure Non-Invasive 65 mmHg Vital Signs(last 24 hrs) Last Charted CJB194 mmHg (SEP 04 08:31) DBP65 mmHg (SEP 04 08:31) Measurements from flowsheet : Measurements 09/04/2023 8:31 EST Height 165.10 cm Admission Weight 85.0 kg [place] Body Weight 57.00 kg Admission Body Mass Index 31.18 m2 Pain assessment: Pain Assessment 09/04/2023 8:31 EST Primary Pain Intensity 0 Pain Scale Type 0-10 Pain scale . General: Alert and oriented. Airway: Normal temporomandibular joint mobility. Mallampati classification: II (soft palate, fauces, uvula visible). Head: Normocephalic. Dentition Evaluation: Dentures, lower, Dentures, upper. Neck: Supple. Respiratory: diminished. Cardiovascular: Normal rate. Heart Sounds: Normal. Gastrointestinal: Soft. Musculoskeletal Normal range of motion. Integumentary: Intact. Neurologic: Alert, Oriented. Review / Management Results review: No qualifying data available , Lab results 09/04/2023 8:57 EST SN - PP - Body Position Lateral Right Side-up Standard Intra-op 09/04/2023 8:57 EST SN - GCD - Post-operative Diagnosis screening SN - GCD - Case Level OPD Level 3 09/04/2023 8:57 EST SN - CAt - Case Attendee SN - CAt - Case Attendee SN - CAt - Case Attendee SN - CAt - Case Attendee SN - CAt - Case Attendee SN - CAt - Case Attendee SN - CAt - Case Attendee SN - CAt - Case Attendee SN - CAt - Role Performed Primary Surgeon SN - CAt - Role Performed Manager Reporting 1 SN - CAt - Role Performed Chamber Worker SN - CAt - Role Performed REFERENCE INVESTIGATOR 09/04/2023 8:37 EST Lactated Ringers Injection Begin Bag 1,000 mL mL 09/04/2023 8:31 EST Height 165.10 cm Admission Weight 85.0 kg [place] Body Weight 57.00 kg Admission Body Mass Index 31.18 m2 Temperature Temporal Artery 36.4 DegC Peripheral Pulse Rate 79 bpm Respiratory Rate 18 br/min Systolic Blood Pressure Non-Invasive 129 mmHg Diastolic Blood Pressure Non-Invasive 65 mmHg Primary Pain Intensity 0 Pain Scale Type 0-10 Pain scale Heart Rhythm Regular Respirations Unlabored Respiratory Pattern Regular Cough None Oxygen Therapy Room air Oxygen Saturation 95 % Abdomen Description Non-distended, Soft Bowel Sounds All Quadrants Present Urinary Elimination Voiding, no difficulties Skin Temperature Warm Skin Description [place], Normal for ethnicity, Dry Skin Moisture General Dry IV Present Present Neurological Symptoms Patient denies Extremity Movement Equal Characteristics of Speech Clear Level of Consciousness Alert Strength All Extremities Strong Affect/Behavior Appropriate Orientation Oriented x 4 Allergies Yes Ppap Coordinator On Yes Colon Prep Results Excellent Consent Form Signed Yes Patient Dressed In Hospital gown History & Physical Update On Chart Yes History & Physical On Chart Yes Orientation Assessment Oriented x 4 Positioning Repositions self Activity Status ADL Awake NPO Status Maintained Standard Safety ID band on, Call device within reach, Bed in low position, Wheels locked, Visitor at bedside Patient ID Band on and Verified Yes Implants Verified Yes Pacemaker/AICD Verified Yes Anesthesia Consent Signed Yes Last Fluid Intake 09/04/2023 2:45 Last Food Intake 09/02/2023 8:32 Last Void 09/04/2023 8:33 09/04/2023 8:28 EST Designated Person #1 We May Share ANTHONY Case [id number] Designated Person #1 Relationship Significant other Privacy Restrictions Requested None Status No, per patient Sensory Deficits None Sleep Apnea Snore Yes Sleep Apnea Tired No Sleep Apnea Obstruction No Sleep Apnea Pressure No Sleep Apnea BMI No Sleep Apnea Age Yes Sleep Apnea Neck No Sleep Apnea Gender No Sleep Apnea Score 2 Diagnosed With Sleep Apnea No Advanced Directives No - requests information Infectious Disease Symptoms Patient states no symptoms Infectious Disease Recent Exposure No Alcohol and Drug Use No Employee of Institutional Living No Health Care Employee No History of Exposure to TB No History of Positive Chest X-Ray for TB No History of Positive TB Skin Test No Homeless No Known Immunosuppression No Recent Immigrant No Resident of Institutional Living No Bloody Sputum No Fatigue No Fever No Loss of Appetite No Night Sweats No Persistent Cough > 3 Weeks No Weight Loss No Barriers to Learning None evident Teaching Method Explanation Preferred Spoken Language Rwandan Preferred Written Language Rwandan Teaching Evaluation No further teaching needed Safety Brochure Information Reviewed Unable to complete [facility] Video Viewed No Information Given by Patient Patient's Current Physicians Patient's Current Physicians Prev Test Positive/Diagnosis w/COVID-19 Yes Previous COVID-19 Positive Date 2018 Current Quarantine/Isolated any Illness No Any Contact with Sick Animals/Birds No Traveled Anywhere in Last 30 Days No Lost Weight Unintentionally Recently No Eat Poorly Due to Decreased Appetite No Total MST Score 0 No Personal Devices, Patient Valuables Dentures, upper, Glasses Anesthesia/Transfusions Prior anesthesia Admission Note-Nursing Same Day Patient History 09/04/2023 7:[address] [facility] History and Physical . Assessment and Plan [place] [employer] Anesthesiologists (ASA) physical status classification: Class III. Anesthetic Preoperative Plan Anesthetic technique: MAC. Postoperative pain management: Per surgeon. Informed consent: signed by patient. Digitally Signed by LILLIE DOE on 09/04/2023 09:04 AM [facility]02-28-2024 Note [place] ADMISSION HISTORY AND PHYSICIAL CHIEF COMPLAINT: Colorectal cancer screening HISTORY OF PRESENT ILLNESS: Colorectal cancer screening REVIEW OF SYSTEMS: Constitutional: denies weight loss Cardiovascular:denies chest pain, palpitations Respiratory:denies shortness of breath Gastrointestinal:no abd pain Musculoskeletal: no arthralgias Skin: no rashes ACTIVE PROBLEMS: (31) Anxiety (39248634) BMI 30.0-30.9,adult (995669105) Cervical cancer screening (3011755480) Chronic bronchitis (676155395) COPD (chronic obstructive pulmonary disease) (52864908) Elevated fasting glucose (256760630) Emphysema lung (170645739) Encounter for well adult exam with abnormal findings (073932118) Family history of uterine cancer (0501402526) Former smoker (27435031) GERD (gastroesophageal reflux disease) (761491351) Immunity status testing (222916048) Immunization due (298142368) Ingrown toenail of both feet (5748783751) Lesion of cervix (771254636) Moderate persistent asthma (2629884282) Nodule of right lung (120603240) Obese (2746515339) Onychomycosis (4202892903) Organizing pneumonia (733249667) Osteopenia (835212812) Overweight (526944675) Palpitations (859313883) Plantar fasciitis, bilateral (818155766) Pleuritic pain (3393908) Rib pain (918418838) Screening due (693516097) Screening for breast cancer (352629226) Screening for cardiovascular condition (824952973) Screening for osteoporosis (009994170) Vitamin D deficiency (24898250) MEDICATIONS: Active Inpt Meds: None Active PRN Meds: None One Time Meds: None Active IV Meds: None ALLERGIES: (1) NKA FAMILY HISTORY: SOCIAL HISTORY: PHYSICAL EXAM: VITALS: No Data Available 24 Hr Tmax: No Data Available 36 Hr Tmax: No Data Available Vital Signs are the last 5 in the past 48 hours. Weights display the last 5 within 7 days. Initial Wt: No Data Available Current Wt: No Data Available physical exam alert and oriented cardio; regular without murmur pulm; clear abd; soft, nontender LABS: No 36hr Lab Data DIAGNOSTICS: IMPRESSION: Colorectal cancer screening PLAN: Proceed with colonoscopy as discussed in the office Digitally Signed by EDNA CHANG DO on 09/04/2023 07:11 AM [facility]06-23-2023 Procedure [facility]06-20-2023 Procedure [facility]10-26-2022 Evaluation + Plan note Diagnostic Tests Pending * Mumps Antibody 05/02/22 * Rubella Antibody 05/02/22 * Rubeola IgG Antibody 05/02/22 Future Scheduled Tests Radiology* MA Mammo Screening Bilateral w/ Dread 05/02/22 [facility] 08-06-2021 NoteHNO ID: [id number] Author: Garfield Mccann Service: ? Author Type: Rubber Cutter Type: Progress Notes Filed: 02/10/2021 3:38 PM Note Text: Radiology Service Progress Note DATE OF SERVICE: February 10, 2021 TIME: 3:37 PM PATIENT IDENTITY VERIFICATION COMPLETED USING TWO (2) STANDARD IDENTIFIERS: Name and Date of confirmed by patient verbally. FALL SCREENING: Has the patient had 2 falls in the last year or 1 fall with injury or currently using an Ambulatory Assistive Device (Walker, Cane, Wheelchair, Crutches, etc.)? No PATIENT GENDER DATA: Female. status: : No status: NO. PATIENT RELEVANT IMPLANT DATA REVIEWED: Yes ALLERGIES: Reviewed and unchanged CONTRAST ALLERGY: NO. EXAM: CT -CONTRAST INDUCED NEPHROPATHY RISK FACTORS: Not applicable CREATININE: Creatinine Date Value Ref Range Status 05/03/2011 0.70 0.70 - 1.40 mg/dL Final 07/13/2003 0.7 0.7 - 1.4 mg/dL Final eGFR-All Other Races Date Value Ref Range Status 05/03/2011 >60 . Final Comment: eGFR (Estimated GFR) Units of measure: mL/min/1.73 meters squared eGFR is derived from the reexpressed MDRD Study equation using the following parameters: serum creatinine, age, gender and race. The creatinine assay has been calibrated to be traceable to IDMS. An eGFR <60 mL/min/1.73m2 for >3 months is consistent with chronic kidney disease. Refer to KDOQI guidelines for clinical interpretation. eGFR- Date Value Ref Range Status 05/03/2011 >60 Final P.O.C.T. RESULTS: POC done: Yes, See Lab Tab February 10, 2021 TREATMENT: N/A PERIPHERAL IV DATA: Ambulatory: A peripheral IV was started in the Left antecubital site with a Angio cath: 22 gauge. RADIOLOGY DEPARTMENT: CT; Exam(s) Completed: Chest SIGNATURE: Garfield Matos PATIENT NAME: Sanjuana Calvo DATE: February 10, 2021 TIME: 3:37 [facility] Future App[facility]ments Appointment Date:05/02/2022 08:00:00 AM Scheduled Provider:PATY VERONICA DO Location:[facility] Appointment Type:PC OV [facility] Evaluation + Plan note Future Appointments Appointment Date:09/11/2023 02:00:00 PM Scheduled Provider: Location:[facility] Appointment Type:BD Bone Density DEXA Axial Skeleton Appointment Date:09/11/2023 02:30:00 PM Scheduled Provider: Location:[facility] Appointment Type:MA Mammogram Screening Bilateral w/ Dread Appointment Date:08/21/2024 10:30:00 AM Scheduled Provider:PATY VERONICA DO Location:[facility] Appointment Type:PC Wellness Annual Future Scheduled Tests Radiology* MA Mammo Screening Bilateral w/ Dread 09/11/23 * BD Bone Density DEXA Axial Skeleton 09/11/23 [facility] Evaluation + Plan note Future Appointments Appointment Date:08/21/2024 10:30:00 AM Scheduled Provider:PATY VERONICA DO Location:[facility] Appointment Type:PC Wellness Annual [facility] Evaluation + Plan note Future Appointments Appointment Date:02/19/2025 09:00:00 AM Scheduled Provider:PATY VERONICA DO Location:[facility] Appointment Type:PC OV Future Scheduled Tests Radiology* MA Mammo Screening Bilateral w/ Dread 09/07/24 [facility] Evaluation + Plan note Future Appointments Appointment Date:11/09/2024 02:00:00 PM Scheduled Provider:PATY VERONICA DO Location:[facility] Appointment Type:PC OV Appointment Date:02/19/2025 09:00:00 AM Scheduled Provider:PATY VERONICA DO Location:[facility] Appointment Type:PC OV [facility] Evaluation + Plan note Future Appointments Appointment Date:02/19/2025 09:00:00 AM Scheduled Provider:PATY VERONICA DO Location:[facility] Appointment Type:PC OV Future Scheduled Tests Laboratory* Basic Metabolic Panel 11/09/24 [facility] Evaluation noteNo assessment information available [facility] Work Phone: Evaluation note* Diagnosis Onset Date Resolution Status Asthma-COPD overlap syndrome chronic Organizing pneumonia resolve d Asthma-COPD overlap syndrome chronic Smoking greater than 40 pack years chronic [facility] Work Phone: Hospital course Narrative No data available for this section [facility] Discharge instructions No data available for this section [facility] Progress note No data available for this section [facility] Summary Purpose Family History No Family History Records Found Relationship Condition Age at Onset Recorded Date/T ana laura sister Malignant neoplasm Unknown brother Malignant neoplasm Unknown mother Cardiac disease Unknown Diabetes mellitus Unknown Advance Directives No Advanced Directives Records FoundNo Advanced Directives Records FoundNo Advanced Directives Records FoundNo Advanced Directives Records Found Chief Complaint and Reason for Visit Chief Complaint COPD COPD COPD COPD Chief Complaint 6 M FU 3 M FU NICOTINE DEPENDENCE Reason for Visit Asthma-COPD overlap syndrome Organizing pneumonia Asthma-COPD overlap syndrome Smoking greater than 40 pack years Additional Source Comments INFORMATION SOURCE (unrecogn ized section and content) DATE CREATED AUTHOR 08/24/2021 [facility] DATE CREATED AUTHOR AUTHOR'S ORGANIZ ATION 09/16/2023 [facility] ([place]) DATE CREATED AUTHOR AUTHOR'S ORGANIZ ATION 11/19/2024 [facility] DATE CREATED AUTHOR AUTHOR'S ORGANIZ ATION 12/21/2024 [facility] Care Team (unrecognized sect ion and content) Team Status: Active Member Role Status Dates Rochelle Arnold GREASE MAN, GREASE MAN-C Family Provider Active Dr. Paty Veronica DO Primary Care Provider Active Team Status: Active Member Role Status Dates Dr. Case Mejia MD Attending Provider , Referring Provider, Other Provider Active Dr. Paty Veronica DO Primary Care Provider Active Team Status: Inactive Member Role Status Dates Dr. Case Mejia MD Attending Provider, Referring Pr ovider Active Dr. Paty Veronica DO Primary Care Provider Active Team Status: Active Member Role Status Dates Dr. Case Mejia MD Attending Provider, Referring Pr ovider Active Dr. Paty Veronica DO Primary Care Provider Active Team Status: Inactive Member Role Status Dates Rochelle Arnold GREASE MAN, GREASE MAN-C Referring Provider Active Dr. Case Mejia MD Attending Provider Active Dr. Paty Veronica DO Primary Care Provider Active Team Status: Inactive Member Role Status Dates Dr. Paty Veronica DO Primary Care Provider, Referrin g Provider Active Gay Norton GREASE MAN, GREASE MAN-C Attending Provider Active Team Status: Inactive Member Role Status Dates Dr. Paty Veronica DO Primary Care Provider Active Gay Norton NP, GREASE MAN-C Attending Provider, Referrin g Provider Active Care Team (unrecognized sect ion and content) Care Team Personnel Name: Aston Curran Cleryahaira Maria PT Position: P3 Scheduling - [employer] Advanced Member Role: Other Name: PATY VERONICA DO Position: P4 Physician - Primary Care Member Role: Primary Care Physician Address: Address: [address] [place] [address]- Care Team Related Persons Name: PATY CASE Address: Home [address] Care Team Personnel Name: Aston Curran Cleryahaira Maria PT Position: P3 Scheduling - [employer] Advanced Member Role: Other Name: PATY VERONICA DO Position: P4 Physician - Primary Care Member Role: Primary Care Physician Address: Address: [address] [place] [address] Care Team Related Persons Name: PATY CASE Address: Home [address] [place] [phone] [place] Goals (unrecognized section and content) Goals may be documented in a n alternate section FOR RECORDS PERTAINING TO PATIENTS WHO ARE OR HAVE BEEN ENROLLED IN A CHEMICAL DEPENDENCY/SUBSTANCEABUSE PROGRAM, SOME INFORMATION MAY BE OMITTED. This clinical summary was aggregated from multiple sources. Caution should be exercised in using it in the provision of clinical care. This summary normalizes information from multiple sources, and as a consequence, information in this document may materially change the coding, format and clinical context of patient data. In addition, data may be omitted in some cases. CLINICAL DECISIONS SHOULD BE BASED ON THE PRIMARY CLINICAL RECORDS. [employer] provides no warranty or guarantee of the accuracy or completeness of information in this document.
== END | disposition home or self-care (01) ==
LOC: PSN 08:04
PROVIDERS: PCP Student in an Organized Health Care Education/Training Program; Referring Provider Nurse Practitioner Family; Visit Provider Nurse Practitioner Family
DX: J44.9 Chronic obstructive pulmonary disease, unspecified (principal)
CPT/HCPCS: 94060; 94726; 94729

== ENCOUNTER → 2025-01-01 | Outpatient (CLI) | payer BC, SELFPAY ==
[2025-01-01 12:46] VITALS: PULSE 76; PULSE 80; PULSE 82; PULSE 85; PULSE 90; PULSE 91; PULSE 93; PULSE 94; O2SAT 89; O2SAT 90; O2SAT 94; O2SAT 96; O2SAT 97; O2SAT 98
--- NOTE | 2025-01-05 12:43 | PCM.PSN.6M ---
PSN 6 Minute Walk Test 6 Minute Walk Test 6 Minute Walk Test: 6 Minute Walk Test PSN:6-Minute Walk Test Start: 01/01/25 12:45 Freq: Status: Active Protocol: RESP.6MINW Document 01/01/25 12:46 [facility] (Rec: 01/01/25 12:52 [facility] [id number]) 6 Minute Walk Test Date Performed 01/01/25 Time Performed 12:30 Height 5 ft 5.5 in Weight: 168 lb Weight in Pounds 168.[address]: Carolyne Johnson Assistive device None used: Pre-test Oxygen Delivery Room Air Method Pulse Ox (%) 98 Pulse Rate (60-100 76 beats/min) Dyspnea Hung Scale ( 0 0-10) Exertion Hung Scale 6 (6-20) 1st minute Oxygen Delivery Room Air Method Pulse Ox (%) 96 Pulse Rate (60-100 82 beats/min) Dyspnea Hung Scale ( 0 0-10) Number of Rests 0 Taken 2nd minute Oxygen Delivery Room Air Method Pulse Ox (%) 94 Pulse Rate (60-100 85 beats/min) Dyspnea Hung Scale ( 2 0-10) Number of Rests 0 Taken 3rd minute Oxygen Delivery Room Air Method Pulse Ox (%) 90 Pulse Rate (60-100 91 beats/min) Dyspnea Hung Scale ( 2 0-10) Number of Rests 0 Taken 4th minute Oxygen Delivery Room Air Method Pulse Ox (%) 90 Pulse Rate (60-100 93 beats/min) Dyspnea Hung Scale ( 3 0-10) Number of Rests 0 Taken Reported Symptoms Increased Work of Breathing 5th minute Oxygen Delivery Room Air Method Pulse Ox (%) 89 Pulse Rate (60-100 94 beats/min) Dyspnea Hung Scale ( 3 0-10) Number of Rests 0 Taken Reported Symptoms Increased Work of Breathing 6th minute Oxygen Delivery Room Air Method Pulse Ox (%) 89 Pulse Rate (60-100 90 beats/min) Dyspnea Hung Scale ( 3 0-10) Number of Rests 0 Taken Reported Symptoms Increased Work of Breathing Post-test Oxygen Delivery Room Air Method Pulse Ox (%) 97 Pulse Rate (60-100 80 beats/min) Dyspnea Hung Scale ( 0 0-10) Exertion Hung Scale 6 (6-20) Full Laps Walked 18 Partial Lap, Number 7 of Tiles Walked Total Distance 1069 Walked (ft) Interpretation Interpretation: The patient ambulated 1069 feet over the course of 6 minutes beginning on room air without assistive devices. Pretesting oxygen saturation was noted to be 98% on room air. With ambulation, the shira oxygen saturation was 89%. This represents a significant exertional oxygen desaturation, consistent with a pulmonary limitation to exercise tolerance. Recommendations Recommendations: There is no indication for the use of supplemental oxygen at this time. However, close interval follow-up is recommended, given the degree of oxygen desaturation noted during this study.
== END | disposition home or self-care (01) ==
LOC: PSN 12:16
PROVIDERS: PCP Student in an Organized Health Care Education/Training Program; Referring Provider Nurse Practitioner Family; Visit Provider Nurse Practitioner Family
DX: J44.9 Chronic obstructive pulmonary disease, unspecified (principal)
CPT/HCPCS: 94618

== ENCOUNTER 2025-05-21 06:18 | Outpatient (CLI) | payer BC, SELFPAY ==
--- NOTE | 2025-05-21 06:22 | CT_ITS ---
PROCEDURE: Low-dose CT lung screen 05/21/2025 REASON FOR EXAM: HISTORY OF SMOKING, GREATER THAN 40 PACK YEARS TECHNIQUE: Procedure Code: [id number] Modality: CT Procedure: LOW DOSE CT LUNG SCREENING Coronal and Sagittal reconstruction series were provided. One or more dose reduction techniques were used (e.g., Automated exposure control, adjustment of the mA and/or kV according to patient size, use of iterative reconstruction technique). REFERENCE LINK: [email or web address] Lung-RADS RADIATION DOSE SUMMARY: CTDlvol: 2.01 mGy DLP: 70.97 mGycm COMPARISON: Low-dose CT lung screen, 05/20/2024 FINDINGS: PULMONARY NODULES: (Only nodules >3mm are reported) Lower neck:The thyroid gland is grossly unremarkable. There is no supraclavicular lymphadenopathy. Mediastinum:No significant lymphadenopathy. Heart and thoracic aorta:The heart size is normal. There is no pericardial effusion. There is no calcific vascular disease of the coronary arteries evident. There is mild calcific vascular disease of the thoracic aorta. Esophagus:There is a moderate hiatal hernia. Upper Abdomen:There is a 7 mm in diameter low-density nodule in the liver dome, too small to characterize. There is calcific vascular disease of the visualized abdominal aorta. Chest wall:The soft tissues of the chest wall appear unremarkable. There are few reactive axillary lymph nodes bilaterally. There is mild diffuse degenerative disc disease of the thoracic spine. Lungs, airways and pleura: There is severe bolus emphysema in the upper lobe of both lungs. There is severe diffuse centrilobular emphysema. There is a stable soft tissue density scar in the right lung apex. There is stable severe scarring of the upper lobe of the left lung with varicose bronchiectasis, peribronchial scarring and cicatricial atelectasis. There is linear scarring in the lower lobe of the right lung. There are no pulmonary nodules or masses. There are no pleural effusions. CT/Low Dose CT Lung Screening IMPRESSION: 1. Severe emphysema. 2. Severe left upper lobe scarring. 3. There are no pulmonary nodules or masses. 4. 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 5. Low-density nodule in the liver dome too small to characterize. Ultrasound may be helpful for further evaluation. 6. Other findings as noted. Lung-RADS Category: 1 S: Negative. Emphysema. Calcific vascular disease. Recommendation: 1. Follow-up low-dose chest CT in 12 months. 2. Limited abdominal ultrasound with attention to the liver. Reading Location: [place] [id number]
== END 2025-05-21 23:59 | disposition home or self-care (01) ==
LOC: CT 06:19
PROVIDERS: PCP Student in an Organized Health Care Education/Training Program; Referring Provider Nurse Practitioner Family; Visit Provider Nurse Practitioner Family
DX: Z12.2 Encounter for screening for malignant neoplasm of respiratory organs (principal); F17.210 Nicotine dependence, cigarettes, uncomplicated
CPT/HCPCS: 71271

== ENCOUNTER → 2025-06-24 | Outpatient (CLI) | payer BC, SELFPAY ==
--- OUTSIDE RECORDS SUMMARY | 2025-06-24 20:23 | XMS RPT_ITS | CCD ---
Author Organization [facility] Care Team Providers Care Adjustment Examiner Name Role Phone PATY VERONICA DO Primary Care Physician [phone] Magdy PT, Candace Unavailable Unavailable Dr. Case Mejia Attending Provider [phone] Case Mejia Referring Provider Dr. Case Mejia Other Provider Dr. Paty Veronica Primary Care Provider [phone] Clayton GALE, SENIOR PRODUCT ANALYST-C Rochelle Referring Provider [phone] Dr. Case Mejia Attending Provider Dr. Paty Veronica Primary Care Provider [phone] Dr. Paty Veronica Referring Provider [phone] Cierra GALE, SENIOR PRODUCT ANALYST-C Gay Attending Provider PATY VERONICA Attending Unavailable PATY VERONICA Primary Care Unavailable PATY VERONICA Attending Unavailable PATY VERONICA Primary Care Unavailable EDNA CHANG DO Attending Unavailable PATY VERONICA Primary Care Unavailable PATY VERONICA Attending Unavailable PATY VERONICA Primary Care Unavailable Dr. Paty Veronica DO Primary Care Provider Elizabeth GALE-Carolyne Nathan Attending Provider Elizabeth GALE-CCaorlyne Referring Provider Elizabeth GALE-Carolyne Nathan Other Provider Dr. Rajesh Whatley DO Attending Provider PATY VERONICA DO Attending Unavailable PATY VERONICA DO Primary Care Unavailable GAGANDEEP ALCAZAR MD Attending Unavailable HALKO DO, PATY Primary Care Unavailable HALKO DO, PATY Attending Unavailable HALKO DO, PATY Primary Care Unavailable HALKO DO, PATY Attending Unavailable HALKO DO, PATY Primary Care Unavailable HALKO DO, PATY Attending Unavailable HALKO DO, PATY Primary Care Unavailable HALKO DO, PATY Primary Care Unavailable HALKO DO, PATY Attending Unavailable HALKO DO, PATY Primary Care Unavailable HALKO DO, PATY Attending Unavailable Halko DO, Dr. Leahy Referring Provider [phone] RU GRIFFITH MD Attending Unavailable HALKO DO, PATY Primary Care Unavailable ABEL PATRICK MD Consulting Unavailable BROOKE VERAS, RU Admitting Unavailable RU GRIFFITH MD Attending Unavailable HALKO DO, PATY Primary Care Unavailable Carolyne Johnson Referring Unavailable Halko, Paty Primary Care Unavailable Carolyne Johnson Attending Unavailable Carolyne Johnson Referring Unavailable Carolyne Johnson Attending Unavailable Halko, Paty Primary Care Unavailable Carolyne Johnson Attending Unavailable Halko, Paty Primary Care Unavailable Carolyne Johnson Referring Unavailable Rajesh Whatley Attending Unavailable Carolyne Johnson Referring Unavailable Rajesh Whatley Attending Unavailable Carolyne Johnson Consulting Unavailable Halko, Paty Primary Care Unavailable Halko, Paty Primary Care Unavailable Halko, Paty Referring Unavailable Carolyne Johnson Attending Unavailable Halko, Paty Primary Care Unavailable Carolyne Johnson Attending Unavailable Willemko, Paty Referring Unavailable Cierra SENIOR PRODUCT ANALYST, Gay Attending Unavailable Cierra SENIOR PRODUCT ANALYST, Gay Referring Unavailable Willemko, Paty Primary Care Unavailable Medications Current Medications Medication Drug Class(es) Dates Sig (Normalized) Sig (Original) Albuterol (18 sources) beta2-Adrenergic Agonist Start: 05-01-2024 take 2 puff(s) by inhalation four times daily as needed for wheezing Ventolin HFA MDI (90 mcg/inh) inhalation aerosol 2 puff(s), Inhalation, QID, PRN as needed for wheezing, # 6.7 gram(s), 5 Refill(s), Pharmacy: [facility], 161, cm, 12/11/23 14:16:00 EDT, Height, kg, 12/11/23 14:16:00 EDT, Dosing Weight Start Date: 05/01/24 Status: Ordered Medication Dispense Status: Completed Quantity: 6.7 Unit: g Total Allowed Fills: 6 Fills Dispensed: 0 Start: 05-01-2024 take 2 puff(s) by in halation four times daily as needed for wheezing Ventolin HFA MDI (90 mcg/inh) inhalation aerosol 2 puff(s), Inhalation, QID, PRN as needed for wheezing, # 6.7 gram(s), 5 Refill(s), Pharmacy: [facility], 161, cm, 12/11/23 14:16:00 EDT, Height, kg, 12/11/23 14:16:00 EDT, Dosing Weight Start Date: 05/01/24 Status: Ordered Quantity: 6.7 Unit: g Repeat number: 6 Start: 08-16-2023 take 2 puff(s) by in halation four times daily as needed for wheezing Ventolin HFA MDI (90 mcg/inh) inhalation aerosol 2 puff(s), Inhalation, QID, PRN as needed for wheezing, # 6.7 gram(s), 5 Refill(s), Pharmacy: [facility], 165, cm, 08/16/23 10:41:00 EST, Height, kg, 08/16/23 10:41:00 EST, Dosing Weight Start Date: 08/16/23 Status: Ordered Start: 07-30-2022 Albuterol Sulf ate (Ventolin Hfa) 90 mcg/actuation HFA aerosol inhaler Active 2 NMA INHALATION EVERY 6 HOURS as needed July 30, 2022 1:00am Start: 07-30-2022 take 1 puff(s) by in [...] wheezing, # 1 EA, 5 Refill(s), Pharmacy: [facility], 165, cm, 05/02/22 7:53:00 EDT, Height, kg, 05/02/22 7:53:00 EDT, Dosing Weight Start Date: 05/02/22 Stop Date: 10/29/22 Status: Ordered Start: 10-31-2021 End: 04-29-2022 take 2 puff(s) by inhalation four times daily as needed for wheezing Ventolin HFA MDI (90 mcg/inh) inhalation aerosol 2 puff(s), Inhalation, QID, PRN as needed for wheezing, # 1 EA, 5 Refill(s), Pharmacy: [facility], 165, cm, 10/31/21 9:07:00 EDT, Height, kg, 10/31/21 9:07:00 EDT, Dosing Weight Start Date: 10/31/21 Stop Date: 04/29/22 Status: Ordered ascorbic acid 1000 mg oral capsule (9 sources) Vitamin C Start: 06-26-2024 take 2 g by mouth once Ascorbic Acid (Vitamin C) 1,000 mg capsule Active 2 g PO ONCE June 26, 2024 2:02pm Start: 07-30-2022 End: 06-26-2024 take 1 g by mouth every six hours Ascorbic Acid (Vitamin C) 1,000 mg capsule Discontinued 1 g PO EVERY 6 HOURS July 30, 2022 1:00am June 26, 2024 2:03pm Start: 07-30-2022 take 1 g by mouth ev jessica six hours Ascorbic Acid (Vitamin C) Active 1 GM PO EVERY 6 HOURS July 30, 2022 12:00am Start: 07-30-2022 take 1 g by mouth ev jessica six hours Ascorbic Acid (Vitamin C) Active 1 GM PO EVERY 6 HOURS July 30, 2022 1:00am aspirin 81 mg delayed release oral tablet (18 sources) Platelet Aggregation Inhibitor, Nonsteroidal Anti-inflammatory Drug Start: 02-24-2025 aspirin 81 mg ora l delayed release tablet Dose : 81 mg = 1 tab(s), Oral, qDay Start Date: 02/24/25 Status: Ordered Medication Dispense Status: Completed Total Allowed Fills: 1 Fills Dispensed: 0 Start: 07-30-2022 take 1 tablet by soledad th once daily Aspirin (Children's Aspirin) 81 mg tablet,chewable Active 81 mg PO DAILY July 30, 2022 1:00am Start: 12-26-2019 aspirin 81 mg oral tablet (chewable) Dose : 81 mg = 1 tab(s), Oral, qDay, # 30 tab(s), 0 Refill(s) Start Date: 12/26/19 Status: Ordered Quantity: 30.0 Unit: tab(s) Repeat number: 1 Calcium 600+D Plus Minerals (12 sources) Start: 05-02-2021 Calcium 600+D Plus Minerals Dose = 1 tab(s), Chewed, qDay, 0 Refill(s) Start Date: 05/02/21 Status: Ordered Medication Dispense Status: Completed Total Allowed Fills: 1 Fills Dispensed: 0 Start: 05-02-2021 Calcium 600+D Plus Minerals Dose = 1 tab(s), Chewed, qDay, 0 Refill(s) Start Date: 05/02/21 Status: Ordered Repeat number: 1 Start: 05-02-2021 Calcium 600+D Plus Minerals Dose = 1 tab(s), Chewed, qDay, 0 Refill(s) Start Date: 05/02/21 Status: Ordered calcium carbonate 1500 mg or al tablet (2 sources) Start: 02-24-2025 calcium (as ca rbonate) 600 mg oral tablet Dose : 600 mg = 1 tab(s), Oral, qDay Start Date: 02/24/25 Status: Ordered Medication Dispense Status: Completed Total Allowed Fills: 1 Fills Dispensed: 0 Calcium Carb-Mag Ox-Zinc Glu c (4 sources) Start: 04-17-2023 Calcium Carb-M ag Ox-Zinc Gluc 333-133-5 mg tablet Active {tbl} PO April 17, 2023 12:00am Start: 04-17-2023 Calcium Carb-M ag Ox-Zinc Gluc [...] Status: Ordered cholecalciferol 0.025 mg oral capsule (6 sources) Vitamin D Start: 07-30-2022 take 1 capsule by mouth once daily Cholecalciferol (Vitamin D3) 25 mcg (1,000 unit) capsule Active 25 ug PO DAILY July 30, 2022 1:00am dextromethorphan hydrobromide 3 mg/ml / promethazine hydrochloride 1.25 mg/ml oral solution (3 sources) Phenothiazine, Uncompetitive F-xgoaxf-D-asparta te Receptor Antagonist, Sigma-1 Agonist Start: 06-06-2021 take 1 dose by mouth every six hours as needed for cough dextromethorphan-pr omethazine 15 mg-6.25 mg/5 mL oral syrup Dose = 5 mL, Oral, q6h, PRN for cough, # 120 mL, 0 Refill(s), Pharmacy: [facility], 166, cm, 05/02/21 9:00:00 EDT, Height, kg, 05/02/21 9:00:00 EDT, Dosing Weight Start Date: 06/06/21 Status: Ordered DME MISCellaneous (2 sources) Start: 02-19-2025 DME MISCellaneous See Instructions, dispense one flutter valve dx: J42, J44.9, J84.89, # 1 EA, 0 Refill(s), Chronic bronchitis COPD (chronic obstructive pulmonary disease), 73.3 Start Date: 02/19/25 Status: Ordered Medication Dispense Status: Completed Quantity: 1.0 Unit: EA Total Allowed Fills: 1 Fills Dispensed: 0 Indications: Chronic obstructive pulmonary disease, unspecified; Unspecified chronic bronchitis; Fluticasone-Umeclidin -Vilanter (1 source) Start: 02-05-2025 Fluticasone-Umeclid in-Vilanter (Trelegy Ellipta) 200-62.5-25 mcg blister with device Active 1 NMA INHALATION Q24H 3 3 February 05, 2025 12:00am 12 hr guaiFENesin 600 mg extended release oral tablet (20 sources) Start: 07-13-2024 Mucinex 600 mg oral tablet, extended release Dose : 600 mg = 1 tab(s), Oral, qAM, 0 Refill(s) Start Date: 07/13/24 Status: Ordered Medication Dispense Status: Completed Total Allowed Fills: 1 Fills Dispensed: 0 Start: 11-01-2023 take 1 tablet by soledad th once daily, then take 1 tablet by mouth every twelve hours Guaifenesin (Mucus Relief Er) 600 mg tablet extended release 12hr Active 600 mg PO DAILY November 01, 2023 10:29am Start: 04-17-2023 End: 02-12-2024 take 1 mg by mouth every twelve hours Guaifenesin (Mucus Relief Er) 600 mg tablet extended release 12hr Discontinued mg PO April 17, 2023 12:00am November 01, 2023 10:30am Start: 05-02-2022 End: 10-29-2022 take 1 tablet by mouth twice daily, then take 1 tablet by mouth every twelve hours Guaifenesin (Mucinex) 600 mg tablet extended release 12hr Discontinued 600 mg PO TWICE A DAY July 30, 2022 1:00am July 31, 2022 8:44am herbal/nutritional product (6 sources) Start: 02-24-2025 take 1 capsule by mouth once daily herbal/nutritional product Turmeric 2250mg 1 cap, Oral, Daily Start Date: 02/24/25 Status: Ordered Medication Dispense Status: Completed Total Allowed Fills: 1 Fills Dispensed: 0 Start: 07-13-2024 herbal/nutriti onal product Smarter Greens - digestion, increase nitric oxide, 0 Refill(s) Start Date: 07/13/24 Status: Ordered Repeat number: 1 Start: 07-13-2024 herbal/nutriti onal product Total Beets - blood pressure support, 0 Refill(s) Start Date: 07/13/24 Status: Ordered Repeat number: 1 ibuprofen 200 mg oral capsule (18 sources) Nonsteroidal Anti-inflammatory Drug Start: 01-31-2021 ibuprofen 200 mg oral capsule Dose : 400 mg = 2 cap(s), Oral, q6hr, 0 Refill(s) Start Date: 01/31/21 Status: Ordered Medication Dispense Status: Completed Total Allowed Fills: 1 Fills Dispensed: 0 mag well (6 sources) Start: 06-20-2020 mag well mag well, 0 Refill(s), 78.2 Start Date: 06/20/20 Status: Ordered Multivitamin preparation (13 sources) Start: 07-30-2022 take 1 tablet by [...] solution (2 sources) Quinolone Antimicrobial Start: 08-20-2024 ofloxa nicole 0.3% ophthalmic solution INSTILL 1 DROP INTO RIGHT EYE 4 TIMES DAILY 3 DAYS PRIOR TO SURGERY AND CONTINUING 4 TIMES DAILY AFTER SURGERY Start Date: 08/20/24 Status: Ordered Repeat number: 1 omeprazole 40 mg delayed release oral capsule (18 sources) Proton Pump Inhibitor Start: 02-19-2025 End: 08-18-2025 omeprazole 40 mg oral delayed release capsule Dose : 40 mg = 1 cap(s), Oral, qDay, # 90 cap(s), 1 Refill(s), Pharmacy: [facility], 161.2, cm, 02/19/25 8:48:00 EDT, Height, kg, 02/19/25 8:48:00 EDT, Dosing Weight Start Date: 02/19/25 Stop Date: 08/18/25 Status: Ordered Medication Dispense Status: Completed Quantity: 90.0 Unit: cap(s) Total Allowed Fills: 2 Fills Dispensed: 0 Start: 05-02-2022 End: 02-12-2024 take 1 capsule by mouth once daily Omeprazole 40 mg capsule,delayed release(DR/EC) Active 40 mg PO DAILY July 30, 2022 1:00am Start: 10-31-2021 End: 04-29-2022 omeprazole 40 mg oral delaye d release capsule Dose : 40 mg = 1 cap(s), Oral, qDay, # 90 cap(s), 1 Refill(s), Pharmacy: [facility], 165, cm, 10/31/21 9:07:00 EDT, Height, kg, 10/31/21 9:07:00 EDT, Dosing Weight Start Date: 10/31/21 Stop Date: 04/29/22 Status: Ordered rosuvastatin calcium 20 mg oral tablet (7 sources) HMG-CoA Reductase Inhibitor Start: 02-19-2025 rosuvastatin 20 mg oral tablet Dose : 20 mg = 1 tab(s), Oral, qHS, # 90 tab(s), 1 Refill(s), Pharmacy: [facility], 161.2, cm, 02/19/25 8:48:00 EDT, Height, kg, 02/19/25 8:48:00 EDT, Dosing Weight Start Date: 02/19/25 Status: Ordered Medication Dispense Status: Completed Quantity: 90.0 Unit: tab(s) Total Allowed Fills: 2 Fills Dispensed: 0 Start: 02-05-2025 take 1 tablet by soledad th at bedtime Rosuvastatin 20 mg tablet Active 20 mg PO AT BEDTIME February 05, 2025 12:00am Start: 07-13-2024 rosuvastatin 2 0 mg oral tablet Dose : 20 mg = 1 tab(s), Oral, qHS, # 90 tab(s), 1 Refill(s), Pharmacy: [facility], 161, cm, 07/13/24 13:30:00 EST, Height, kg, 07/13/24 13:30:00 EST, Dosing Weight Start Date: 07/13/24 Status: Ordered Quantity: 90.0 Unit: tab(s) Repeat number: 2 sodium polystyrene sulfonate 250 mg/ml oral suspension (6 sources) Start: 02-19-2025 End: 08-18-2025 take 1 dose by mouth once daily sodium polystyrene sulfonate 15 g/60 mL oral and rectal suspension Dose : 15 gram(s) = 60 mL, Oral, qDay, X 90 day(s), # 5,400 mL, 1 Refill(s), 08/18/25 9:32:00 AM EST, Pharmacy: [facility], 161.2, cm, 02/19/25 8:48:00 EDT, Height, kg, 02/19/25 8:48:00 EDT, Dosing Weight Start Date: 02/19/25 Stop Date: 08/18/25 Status: Ordered Medication Dispense Status: Completed Quantity: 5400.0 Unit: mL Total Allowed Fills: 2 Fills Dispensed: 0 Start: 02-05-2025 Sodium Polysty harrison Sulf-Sorbtl (Sps (With Sorbitol)) 15-20 gram/60 mL suspension Active 15 mL PO daily February 05, 2025 12:00am Start: 10-19-2024 End: 02-07-2025 take 1 dose by mouth once daily sodium polystyrene sul fonate 15 g/60 mL oral and rectal suspension Dose : 3.75 gram(s) = 15 mL, Oral, qDay, X 30 day(s), # 450 mL, 2 Refill(s), 02/07/25 2:52:00 PM EDT, Pharmacy: [facility], 161.2, cm, 11/09/24 14:14:00 EDT, [...] office, # 354 mL, 0 Refill(s), Pharmacy: [facility], 165, cm, 08/28/23 10:28:00 EST, Height, kg, 08/28/23 10:28:00 EST, Dosing Weight Start Date: 08/28/23 Status: Ordered Trelegy Ellipta 100 mcg-62.5 mcg-25 mcg/inh inhalation powder (9 sources) Start: 02-19-2025 End: 08-18-2025 take 1 dose by mouth once daily Trelegy Ellipta 100 mcg-62.5 mcg-25 mcg/inh inhalation powder Dose = 1 puff(s), Inhalation, qDay, at the same time every day. Following administration, rinse mouth with water after use (do not swallow)., # 3 EA, 1 Refill(s), Pharmacy: [facility], 161.2, cm, 02/19/25 8:48:00 EDT, Height, kg, 02/19/25 8:48:00 EDT, Dosing Weight Start Date: 02/19/25 Stop Date: 08/18/25 Status: Ordered Medication Dispense Status: Completed Quantity: 3.0 Unit: EA Total Allowed Fills: 2 Fills Dispensed: 0 Start: 08-16-2023 End: 02-12-2024 take 1 dose by mouth once daily Trelegy Ellipta 100 mcg-62.5 mcg-25 mcg/inh inhalation powder Dose = 1 puff(s), Inhalation, qDay, at the same time every day. Following administration, rinse mouth with water after use (do not swallow)., # 3 EA, 1 Refill(s), Pharmacy: [facility], 165, cm, 08/16/23 10:41:00 EST, [...] swallow)., # 3 EA, 1 Refill(s), Pharmacy: [facility], 165, cm, 08/16/23 10:41:00 EST, Height, kg, 08/16/23 10:41:00 EST, Dosing Weight Start Date: 08/16/23 Stop Date: 02/12/24 Status: Ordered tumeric (1 source) Start: 04-17-2023 tumeric Active PO April 16, 2023 11:00pm turmeric extract 500 mg oral capsule (7 sources) Start: 08-16-2023 turmeric 500 m g oral capsule Dose : 500 mg = 1 cap(s), Oral, Daily, 0 Refill(s) Start Date: 08/16/23 Status: Ordered Repeat number: 1 Vitamin C 1000 mg oral table t (11 sources) Start: 05-02-2022 Vitamin C 1000 mg oral tablet Dose : 1,000 mg = 1 tab(s), Oral, qDay, 0 Refill(s) Start Date: 05/02/22 Status: Ordered Medication Dispense Status: Completed Total Allowed Fills: 1 Fills Dispensed: 0 Start: 05-02-2022 Vitamin C 1000 mg oral tablet Dose : 1,000 mg = 1 tab(s), Oral, qDay, # 30 tab(s), 0 Refill(s) Start Date: 05/02/22 Status: Ordered Quantity: 30.0 Unit: tab(s) Repeat number: 1 Start: 05-02-2022 Vitamin C 1000 mg oral tablet Dose : 1,000 mg = 1 tab(s), Oral, qDay, # 30 tab(s), 0 Refill(s) Start Date: 05/02/22 Status: Ordered Vitamin D3 125 mcg (5000 intl units) oral tablet (2 sources) Start: 02-24-2025 Vitamin D3 125 mcg (5000 intl units) oral tablet Dose : 125 mcg = 1 tab(s), Oral, qDay Start Date: 02/24/25 Status: Ordered Medication Dispense Status: Completed Total Allowed Fills: 1 Fills Dispensed: 0 Vitamin D3 25 mcg (1000 intl units) oral capsule (10 sources) Start: 05-02-2021 take 1 capsule by mouth once daily Vitamin D3 25 mcg (1000 intl units) oral capsule See Instructions, 1 cap(s) Oral Daily, 0 Refill(s) Start Date: 05/02/21 Status: Ordered Repeat number: 1 Start: 05-02-2021 take 1 capsule by [facility] once daily Vitamin D3 25 mcg (1000 [...] Sig (Original) fluconazole 150 mg oral tablet (8 sources) Azole Antifungal Start: 05-02-2022 End: 04-17-2023 take 1 tablet by mouth every week Fluconazole 150 mg tablet Discontinued 150 mg PO EVERY WEEK July 30, 2022 1:00am April 17, 2023 8:00am Fluticasone-Umecli din-Vilanter (8 sources) Anticholinergic, Corticosteroid, beta2-Adrenergic Agonist Start: 02-05-2025 End: 02-05-2025 Fluticasone-Umeclid in-Vilanter (Trelegy Ellipta) 100-62.5-25 mcg blister with device Discontinued 1 NMA INHALATION DAILY 3 February 05, 2025 8:20am February 05, 2025 8:25am Start: 11-01-2023 End: 02-05-2025 Tfeyfjcnoqj-Nxpnylqtj-Zfozqd er (Trelegy Ellipta) 100-62.5-25 mcg blister with device Discontinued 1 NMA INHALATION DAILY 3 November 01, 2023 10:50am February 05, 2025 8:20am Start: 11-01-2023 Fluticasone-Um eclidin-Vilanter (Trelegy Ellipta) 100-62.5-25 mcg blister with device Active 1 NMA INHALATION DAILY 3 November 01, 2023 10:50am Start: 01-14-2023 End: 11-01-2023 Vkghdwryejs-Rlcojjkue-Gnkyvk er (Trelegy Ellipta) 100-62.5-25 mcg blister with device Discontinued 1 NMA INHALATION DAILY 60 5 January 14, 2023 12:00am November 01, 2023 10:51am Start: 01-14-2023 Fluticasone-Um eclidin-Vilanter (Trelegy Ellipta) 100-62.5-25 mcg blister with device Active 1 INH INHALATION DAILY 60 January 13, 2023 11:00pm magnesium oxide 400 mg oral tablet (14 sources) Start: 05-02-2022 End: 02-05-2025 take 1 tablet by mouth once daily Magnesium Oxide 400 mg (241.3 mg magnesium) tablet Discontinued 400 mg PO DAILY July 30, 2022 1:00am February 05, 2025 8:12am Start: 05-02-2021 Magnesium 250 mg tablet Dose : 250 mg = 1 tab(s), Oral, qDay, 0 Refill(s) Start Date: 05/02/21 Status: Ordered Metoprolol (5 sources) beta-Adrenergic Geno Start: 03-03-2025 End: 03-03-2025 take 1 tablet by mouth in the evening metoprolol Start: 03/03/25 7:10:00 PM EDT, Dose = 12.5 mg, = 0.5 tab(s), Oral, give with food, 0, 03/03/25 17:38:00 EDT Start Date: 03/03/25 Stop Date: 03/03/25 Status: Completed Medication Dispense Status: Completed Total Allowed Fills: 1 Fills Dispensed: 0 Start: 03-03-2025 metoprolol suc cinate 25 mg oral TABLET extended release Dose : 12.5 mg = 0.5 tab(s), Oral, qDay, # 45 tab(s), 3 Refill(s), Pharmacy: [facility], 163.8, cm, 03/03/25 12:58:00 EDT, Height, kg, 03/03/25 12:58:00 EDT, Dosing Weight Start Date: 03/03/25 Status: Ordered Medication Dispense Status: Completed Quantity: 45.0 Unit: tab(s) Total Allowed Fills: 4 Fills Dispensed: 0 Start: 02-19-2025 metoprolol suc cinate 25 mg oral TABLET extended release Dose : 25 mg = 1 tab(s), Oral, qDay, Do not crush or chew (controlled release), # 90 tab(s), 0 Refill(s), Pharmacy: [facility], 161.2, cm, 02/19/25 8:48:00 EDT, Height, kg, 02/19/25 8:48:00 EDT, Dosing Weight Start Date: 02/19/25 Status: Ordered Medication Dispense Status: Completed Quantity: 90.0 Unit: tab(s) Total Allowed Fills: 1 Fills Dispensed: 0 Start: 02-05-2025 take 1 tablet by soledad th once daily Metoprolol Succinate 25 mg tablet extended release 24 hr Active 25 mg PO daily February 05, 2025 12:00am Start: 11-25-2024 metoprolol suc cinate 25 mg oral TABLET extended release Dose : 25 mg = 1 tab(s), Oral, qDay, Do not crush or chew (controlled release), # 90 tab(s), 0 Refill(s), Pharmacy: [facility], 161.2, cm, 11/09/24 14:14:00 EDT, Height, kg, 11/09/24 14:14:00 EDT, Dosing Weight Start Date: 11/25/24 Status: Ordered Quantity: 90.0 Unit: tab(s) Repeat number: 1 Multivitamin tablet (3 sources) Start: 07-30-2022 End: 11-01-2023 Multivitamin tablet Discontinued 1 {tbl} PO DAILY July 30, 2022 1:00am November 01, 2023 10:29am Multivitamin With Minerals capsule (3 sources) Start: 07-30-2022 End: 11-01-2023 Multivitamin With Minerals capsule Discontinued 1 NMA PO DAILY July 30, 2022 1:00am November 01, 2023 10:29am Multivitamin-Calcium Carb-Ir on tablet (6 sources) Start: 11-01-2023 End: 02-05-2025 Multivitamin-Calcium Carb-Ir on tablet Discontinued 1 {tbl} PO DAILY November 01, 2023 10:30am February 05, 2025 8:12am Start: 11-01-2023 Multivitamin-C alcium Carb-Iron tablet Active 1 {tbl} PO DAILY November 01, 2023 10:30am Start: 07-30-2022 End: 11-01-2023 Multivitamin-Calcium Carb-Ir on tablet Discontinued {tbl} PO July 30, 2022 1:00am November 01, 2023 10:30am Tiotropium [place] (15 sources) Anticholinergic Start: 07-31-2022 End: 01-14-2023 take 2.5 ug by inhalation once daily Tiotropium [place] (Spiriva Respimat) 2.5 mcg/actuation mist Discontinued 2 NMA INHALATION DAILY 3 July 31, 2022 8:59am January 14, 2023 7:59am Start: 07-31-2022 End: 01-14-2023 take 1 puff(s) by inhalation once daily Tiotropium [place] (Spiriva Respimat) 2.5 mcg/actuation mist Discontinued 2 PUFF INHALATION DAILY July 31, 2022 7:59am January 14, 2023 6:59am Start: 07-31-2022 take 1 puff(s) by in halation once daily Tiotropium [place] (Spiriva Respimat) 2.5 mcg/actuation mist Active 2 PUFF INHALATION DAILY July 31, 2022 8:59am Start: 07-30-2022 End: 07-31-2022 take 2.5 ug by inhalation once daily Tiotropium [place] (Spiriva Respimat) 2.5 mcg/actuation mist Discontinued 2 NMA INHALATION DAILY July 30, 2022 1:00am July 31, 2022 9:03am Start: 07-30-2022 End: 07-31-2022 take 1 puff(s) by inhalation once daily Tiotropium [place] (Spiriva Respimat) 2.5 mcg/actuation mist Discontinued 2 PUFF INHALATION DAILY July 30, 2022 12:00am July 31, 2022 8:03am Start: 05-02-2022 End: 10-29-2022 Spiriva Respimat 10 ACT 2.5 mcg/inh inhalation aerosol 2 puff(s), Inhalation, qDay, # 3 EA, 1 Refill(s), Pharmacy: [facility], 165, cm, 05/02/22 7:53:00 EDT, Height, kg, 05/02/22 7:53:00 EDT, Dosing Weight Start Date: 05/02/22 Stop Date: 10/29/22 Status: Ordered Start: 10-31-2021 End: 04-29-2022 Spiriva Respimat 10 ACT 2.5 mcg/inh inhalation aerosol 2 puff(s), Inhalation, qDay, # 3 EA, 1 Refill(s), Pharmacy: [facility], 165, cm, 10/31/21 9:07:00 EDT, Height, kg, 10/31/21 9:07:00 EDT, Dosing Weight Start Date: 10/31/21 Stop Date: 04/29/22 Status: Ordered tumeric 2,250 mg tablet (3 sources) Start: 04-17-2023 End: 11-01-2023 tumeric 2,250 mg tablet Disc ontinued PO April 17, 2023 12:00am November 01, 2023 10:30am Problems Problem Classification Problem Date Documented Date Episodic/Chronic Anxiety disorders (13 sources) Anxiety; Translations: [Anxiety disorder, unspecified] Onset: 03-03-2025 01-21-2020 Chronic Asthma (17 sources) Asthma-chronic obstructive pulmonary disease overlap syndrome; Translations: [Asthma-chronic obstructive pulmonary disease overlap syndrome] Onset: 03-03-2025 01-14-2023 Chronic Comment on above: FEV1 71% Cardiac dysrhythmias (2 sources) Supraventricular tachycardia 02-19-2025 Chronic Cardiac dysrhythmias (10 sources) Palpitations 12-12-2020 Episodic Chronic obstructive pulmonary disease and bronchiectasis (20 sources) Chronic obstructive lung disease; Translations: [Chronic bronchitis] Onset: 01-21-2025 01-21-2020 Chronic Coronary atherosclerosis and other heart disease (7 sources) Coronary arteriosclerosis; Translations: [Atherosclerotic heart disease of [place] coronary artery without angina pectoris] Onset: 03-03-2025 07-13-2024 Chronic Diabetes mellitus without complication (13 sources) Impaired fasting glycemia; Translations: [Impaired fasting glucose] Onset: 12-06-2021 Episodic Disorders of lipid metabolism (1 source) Hyperlipidemia, unspecified; Translations: [Hyperlipidemia, unspecified] Onset: 03-03-2025 Chronic Esophageal disorders (13 sources) Gastroesophageal reflux disease; Translations: [Gastro-esophageal reflux disease without esophagitis] Onset: 03-03-2025 06-20-2020 Chronic Heart valve disorders (3 sources) Mitral valve regurgitation; Translations: [Nonrheumatic mitral (valve) insufficiency] Onset: 03-03-2025 02-19-2025 Chronic Mycoses (11 sources) Onychomycosis 05-02-2022 Episodic Nutritional deficiencies (10 sources) Vitamin D deficiency; Translations: [Vitamin D deficiency, unspecified] Onset: 03-03-2025 08-16-2023 Chronic Other aftercare (1 source) Encounter for therapeutic drug level monitoring; Translations: [Encounter for therapeutic drug level monitoring] Onset: 03-03-2025 Episodic Other aftercare (1 source) manager long term care (current) use of inhaled steroids; Translations: [manager long term care (current) use of inhaled steroids] Onset: 03-03-2025 Episodic Other aftercare (1 source) manager long term care (current) use of aspirin; Translations: [custodial (current) use of aspirin] Onset: 03-03-2025 Episodic Other aftercare (1 source) Other long-term (current) drug therapy; Translations: [Other middle or intermediate school principal (current) drug therapy] Onset: 03-03-2025 Episodic Other bone disease and musculoskeletal deformities (12 sources) Osteopenia 02-20-2021 Episodic Other bone disease and musculoskeletal deformities (1 source) Other specified disorders of bone density and structure, unspecified site; Translations: [Other specified disorders of bone density and structure, unspecified site] Onset: 03-03-2025 Episodic Other connective tissue disease (12 sources) Plantar fasciitis 10-31-2021 Episodic Other female genital disorders (12 sources) Lesion of cervix 01-31-2021 Episodic Other lower respiratory disease (18 sources) Organized pneumonia; Translations: [Other specified interstitial pulmonary diseases] 12-12-2020 Chronic Comment on above: SUHAIL essentially nonf unctional Other lower respiratory disease (1 source) Other specified interstitial pulmonary diseases; 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] 01-14-2023 Chronic Other lower respiratory disease (1 source) Imaging of lung abnormal 02-10-2020 Episodic Other lower respiratory disease (12 sources) Lung mass 11-13-2019 Episodic Other lower respiratory disease (10 sources) Pleuritic pain 01-21-2020 Episodic Other lower respiratory disease (10 sources) Rib pain 02-10-2020 Episodic Other nutritional; endocrine; and metabolic disorders (3 sources) Body mass index 30+ - obesity 08-16-2023 Chronic Other nutritional; endocrine; and metabolic disorders (3 sources) Obesity 08-16-2023 Chronic Other nutritional; endocrine; and metabolic disorders (1 source) Body mass index 25-29 - overweight 10-31-2021 Episodic Other nutritional; endocrine; and metabolic disorders (11 sources) Overweight 05-02-2022 Episodic Other nutritional; endocrine; and metabolic disorders (2 sources) Overweight in adulthood with body mass index of 25 or more but less than 30 05-02-2022 Episodic Other nutritional; endocrine; and metabolic disorders (1 source) Overweight; Translations: [Overweight] Onset: 03-03-2025 Episodic Other nutritional; endocrine; and metabolic disorders (1 source) Body mass index (BMI) 27.0-27.9, adult; Translations: [Body mass index [BMI] 27.0-27.9, adult] Onset: 03-03-2025 Episodic Other screening for suspected conditions (not mental disorders or infectious disease) (1 source) Viral screening status 12-12-2020 Episodic Other skin disorders (11 sources) Bilateral ingrowing nail of toe of feet 05-02-2022 Episodic Residual codes; unclassified (12 sources) Family history of malignant neoplasm of uterus 01-31-2021 Episodic Residual codes; unclassified (12 sources) Immunization due 06-20-2020 Episodic Residual codes; unclassified (9 sources) Screening due 08-16-2023 Episodic Screening and history of mental health and substance abuse codes (13 sources) Ex-smoker; Translations: [Personal history of nicotine dependence] Onset: 03-03-2025 12-12-2020 Episodic Substance-related disorders (8 sources) Cigarette smoker ; Translations: [Nicotine dependence, cigarettes, uncomplicated] Onset: 02-05-2025 04-17-2023 Chronic Comment on above: quit 2014 Unclassified (12 sources) Cancer cervix screening status 01-31-2021 Unclassified (20 sources) Patient encounter status 12-12-2020 Unclassified (1 source) Other supraventricular tachycardia; Translations: [Other supraventricular tachycardia] Onset: 03-03-2025 Viral infection (6 sources) Viremia 12-11-2023 Episodic Results Test Name Value Interpretation Reference Range Facility .GFRon 03-03-2025 Estimated Glomerular Filtration Rate 98 ml/min/1.73sqm Normal [facility] Comment on above: Result Comment: Stages of [...] the eGFR results. Performed By: #### A BSGEL, GFR, BMP, ABOGEL, PRO #### [address] [address] ABO/Rh (Gel)on 03-03-2025 ABO/Rh Interp Negative Invalid Interpretation Code [facility] Comment on above: Performed By: #### A BSGEL, GFR, BMP, ABOGEL, PRO #### [address] [address] ABS (Gel)on 03-03-2025 ABSC Interp (Gel) Negative [facility] Comment on above: Performed By: #### A BSGEL, GFR, BMP, ABOGEL, PRO #### [address] [address] BMPon 03-03-2025 BUN/Creatinine Ratio 19.1 ratio Normal 10.0-22.0 [facility] Comment on above: Performed By: #### A BSGEL, GFR, BMP, ABOGEL, PRO #### [address] [address] Calcium [Mass/Vol] 10.1 mg/dL Normal 8.7-10.4 [facility] Comment on above: Performed By: #### A BSGEL, GFR, BMP, ABOGEL, PRO #### [address] [address] Chloride [Moles/Vol] 104 mmol/L Normal 98-110 [facility] Comment on above: Performed By: #### A BSGEL, GFR, BMP, ABOGEL, PRO #### [address] [address] CO2 [Moles/Vol] 30 mmol/L Normal 22-32 [facility] Comment on above: Performed By: #### A BSGEL, GFR, BMP, ABOGEL, PRO #### [address] [address] Creatinine [Mass/Vol] 0.68 mg/dL Normal 0.50-1.20 [facility] Comment on above: Result Comment: Test ing performed on [employer] Private analyzer using enzymatic creatinine methodology. Performed By: #### A BSGEL, GFR, BMP, ABOGEL, PRO #### [address] [address] Electrolyte Balance 11.0 mEq/L Normal 4.0-15.0 [facility] Comment on above: Performed By: #### A BSGEL, GFR, BMP, ABOGEL, PRO #### [address] [address] Glucose [Mass/Vol] 83 mg/dL Normal 82-115 [facility] Comment on above: Performed By: #### A BSGEL, GFR, BMP, ABOGEL, PRO #### [address] [address] Potassium [Moles/Vol] 3.8 mmol/L Normal 3.5-5.0 [facility] Comment on above: Performed By: #### A BSGEL, GFR, BMP, ABOGEL, PRO #### [address] [address] Sodium [Moles/Vol] 145 mmol/L Normal 136-145 [facility] Comment on above: Performed By: #### A BSGEL, GFR, BMP, ABOGEL, PRO #### [address] [address] Urea nitrogen [Mass/Vol] 13.0 mg/dL Normal 8.0-22.0 [facility] Comment on above: Performed By: #### A BSGEL, GFR, BMP, ABOGEL, PRO #### [place] [address] LABORATORYOrdered By: Johnathan Kirk on 03-03-2025 ABO and Rh group Nom (Bld) Blood group A Rh(D) negative Invalid Interpretation Code BB Auto SS LABORATORYOrdered By: Angel John on 03-03-2025 Blood group antibody screen Ql Negative ABSC (03/03/25 12:50 PM) Normal AH BB Auto SS LABORATORYOrdered By: [employer] on 03-03-2025 Calcium [Mass/Vol] 10.1 mg/dL Normal 8.7 - 10. 4 mg/dL AH ADM SS Chloride [Moles/Vol] 104 mmol/L Normal 98 - 11 0 mEq/L AH ADM SS CO2 [Moles/Vol] 30 mmol/L Normal 22 - 32 mEq/L AH ADM SS Creatinine [Mass/Vol] 0.68 mg/dL Normal 0.50 - 1.20 mg/dL AH ADM SS Comment on above: Interpretive Data: T esting performed on [employer] analyzer using enzymatic creatinine methodology. Electrolyte Balance 11.0 mEq/L Normal 4.0 - 15 .0 mEq/L AH ADM SS Estimated Glomerular Filtration Rate 98 ml/min/1.73sqm Invalid Interpretation Code Chemistry S Comment on above: Interpretive Data: [...] to calculate the eGFR results. Glucose [Mass/Vol] 83 mg/dL Normal 82 - 115 mg/dL AH ADM SS Potassium [Moles/Vol] 3.8 mmol/L Normal 3.5 - 5.0 mEq/L AH ADM SS PT Coag (PPP) [Time] 12.2 s Normal 9.0 - 1 4.4 seconds [facility] Comment on above: Interpretive Data: E ffective 01/20/08, Protime results may be affected by some antibiotics (i.e. Ciprofloxacin, Azithromycin, Bactrim) which may potentiate the action of oral anticoagulants, with further increases in Protime/INR. PT International Ratio 1.0 ratio Invalid Interpretation Code [facility] Comment on above: Interpretive Data: Isela hernandez [employer] (CHEST, 1991, 102:312S-25S) recommended therapeutic range for oral anticoagulant therapy is: LOW RISK: Prophylaxis of venous thrombosis INR: 2.0-3.0 Treatment of pulmonary embolism 2.0-3.0 Prevention of systemic embolism 2.0-3.0 HIGH RISK: Mechanical prosthetic valves 2.5-3.5 Sodium [Moles/Vol] 145 mmol/L Normal 136 - 145 mEq/L ADM SS Urea nitrogen [Mass/Vol] 13.0 mg/dL Normal 8.0 - 22.0 mg/dL ADM SS Urea nitrogen/Creatinine [Mass ratio] 19.1 ratio Normal 10.0 - 22.0 ratio ADM SS PROon 03-03-2025 INR Coag (PPP) [Relative time] 1.0 {INR} Normal [facility] Comment on above: Result Comment: [employer] (CHEST, 1991, 102:312S-25S) recommended therapeutic range for oral anticoagulant therapy is: LOW RISK: Prophylaxis of venous thrombosis INR: 2.0-3.0 Treatment of pulmonary embolism 2.0-3.0 Prevention of systemic embolism 2.0-3.0 HIGH RISK: Mechanical prosthetic valves 2.5-3.5 Performed By: #### A BSGEL, GFR, BMP, ABOGEL, PRO #### [place] [address] PT Coag (PPP) [Time] 12.2 s Normal 9.0-14.4 [facility] Comment on above: Result Comment: Effe ctive 01/20/08, Protime results may be affected by some antibiotics (i.e. Ciprofloxacin, Azithromycin, Bactrim) which may potentiate the action of oral anticoagulants, with further increases in Protime/INR. Performed By: #### A BSGEL, GFR, BMP, ABOGEL, PRO #### [address] [address] .Auto Diffon 02-24-2025 Basophil, Absolute 0.1 10 3/mcL Normal 0.0-0.3 [facility] Comment on above: Performed By: #### G FR, ANEU, CBC, ADIFF, BMP #### [address] [address] Basophils/100 WBC (Bld) 0.7 % Normal 0.0-2.5 [facility] Comment on above: Performed By: #### G FR, ANEU, CBC, ADIFF, BMP #### [address] [address] Eosinophil, Absolute 0.1 10 3/mcL Normal 0.0-0.7 [facility] Comment on above: Performed By: #### G FR, ANEU, CBC, ADIFF, BMP #### [address] [address] Eosinophils/100 WBC (Bld) 1.9 % Normal 0.0-6.0 [facility] Comment on above: Performed By: #### G FR, ANEU, CBC, ADIFF, BMP #### [address] [address] Lymphocyte, Absolute 2.8 10 3/mcL Normal 0.9-4.3 [facility] Comment on above: Performed By: #### G FR, ANEU, CBC, ADIFF, BMP #### [address] [address] Lymphocytes/100 WBC (Bld) 38.8 % Normal 20.0-40.0 [facility] Comment on above: Performed By: #### G FR, ANEU, CBC, ADIFF, BMP #### [address] [address] Monocyte, Absolute 0.4 10 3/mcL Normal 0.1-1.4 [facility] Comment on above: Performed By: #### G FR, ANEU, CBC, ADIFF, BMP #### [address] [address] Monocytes/100 WBC (Bld) 5.7 % Normal 2.0-13.0 [facility] Comment on above: Performed By: #### G FR, ANEU, CBC, ADIFF, BMP #### [address] [address] Neutrophils/100 WBC (Bld) 52.9 % Normal 50.0-75.0 [facility] Comment on above: Performed By: #### G FR, ANEU, CBC, ADIFF, BMP #### [address] [address] .GFRon 02-24-2025 Estimated Glomerular Filtration Rate 98 ml/min/1.73sqm Normal [facility] Comment on above: Result Comment: Stages of [...] the eGFR results. Performed By: #### G FR, ANEU, CBC, ADIFF, BMP #### [address] [address] .NEUABSon 02-24-2025 Neutrophil, Absolute 3.8 10 3/mcL Normal 2.3-8.1 [facility] Comment on above: Performed By: #### G FR, ANEU, CBC, ADIFF, BMP #### [address] [address] BMPon 02-24-2025 BUN/Creatinine Ratio 19.4 ratio Normal 10.0-22.0 [facility] Comment on above: Performed By: #### G FR, ANEU, CBC, ADIFF, BMP #### [address] [address] Calcium [Mass/Vol] 10.1 mg/dL Normal 8.7-10.4 [facility] Comment on above: Performed By: #### G FR, ANEU, CBC, ADIFF, BMP #### [address] [address] Chloride [Moles/Vol] 102 mmol/L Normal 98-110 [facility] Comment on above: Performed By: #### G FR, ANEU, CBC, ADIFF, BMP #### [address] [address] CO2 [Moles/Vol] 32 mmol/L Normal 22-32 [facility] Comment on above: Performed By: #### G FR, ANEU, CBC, ADIFF, BMP #### [address] [address] Creatinine [Mass/Vol] 0.67 mg/dL Normal 0.50-1.20 [facility] Comment on above: Result Comment: Test ing performed on [employer] Private analyzer using enzymatic creatinine methodology. Performed By: #### G FR, ANEU, CBC, ADIFF, BMP #### [address] [address] Electrolyte Balance 9.0 mEq/L Normal 4.0-15.0 [facility] Comment on above: Performed By: #### G FR, ANEU, CBC, ADIFF, BMP #### [address] [address] Glucose [Mass/Vol] 88 mg/dL Normal 82-115 [facility] Comment on above: Performed By: #### G FR, ANEU, CBC, ADIFF, BMP #### [address] [address] Potassium [Moles/Vol] 5.0 mmol/L Normal 3.5-5.0 [facility] Comment on above: Performed By: #### G FR, ANEU, CBC, ADIFF, BMP #### [address] [address] Sodium [Moles/Vol] 143 mmol/L Normal 136-145 [facility] Comment on above: Performed By: #### G FR, ANEU, CBC, ADIFF, BMP #### [place] [address] Urea nitrogen [Mass/Vol] 13.0 mg/dL Normal 8.0-22.0 [facility] Comment on above: Performed By: #### G FR, ANEU, CBC, ADIFF, BMP #### [place] [address] CBCon 02-24-2025 Erythrocyte distribution width (RBC) [Ratio] 13.9 % Normal 11.5-15.5 [facility] Comment on above: Performed By: #### G FR, ANEU, CBC, ADIFF, BMP #### [place] [address] Hematocrit (Bld) [Volume fraction] 38.0 % Normal 34.0-46.0 [facility] Comment on above: Performed By: #### G FR, ANEU, CBC, ADIFF, BMP #### [place] [address] Hgb 13.0 G/dL Normal 12.0-16.0 [facility] Comment on above: Performed By: #### G FR, ANEU, CBC, ADIFF, BMP #### [place] [address] MCH (RBC) [Entitic mass] 30.3 pg Normal 27.0-33.0 [facility] Comment on above: Performed By: #### G FR, ANEU, CBC, ADIFF, BMP #### [place] [address] MCHC 34.3 G/dL Normal 32.0-36.0 [facility] Comment on above: Performed By: #### G FR, ANEU, CBC, ADIFF, BMP #### [place] [address] MCV (RBC) [Entitic vol] 88.2 fL Normal 80.0-99.0 [facility] Comment on above: Performed By: #### G FR, ANEU, CBC, ADIFF, BMP #### [place] [address] Platelet 359 10 3/mcL Normal 150-450 [facility] Comment on above: Performed By: #### G FR, ANEU, CBC, ADIFF, BMP #### [address] [address] Platelet mean volume (Bld) [Entitic vol] 6.7 fL Normal 6.6-10.5 [facility] Comment on above: Performed By: #### G FR, ANEU, CBC, ADIFF, BMP #### [place] [address] RBC 4.31 10 6/mcL Normal 4.10-5.30 [facility] Comment on above: Performed By: #### G FR, ANEU, CBC, ADIFF, BMP #### [place] [address] WBC 7.3 10 3/mcL Normal 4.5-10.8 [facility] Comment on above: Performed By: #### G FR, ANEU, CBC, ADIFF, BMP #### [place] [address] LABORATORYOrdered By: SYSTEM SYSTEM on 02-24-2025 Basophils (Bld) [#/Vol] 0.1 103/mcL Normal 0.0 - 0.3 10^3/mcL AH Workflow SS Basophils/100 WBC (Bld) 0.7 % Normal 0.0 - 2.5 % Workflow SS Calcium [Mass/Vol] 10.1 mg/dL Normal 8.7 - 10. 4 mg/dL ADM SS Chloride [Moles/Vol] 102 mmol/L Normal 98 - 11 0 mEq/L ADM SS CO2 [Moles/Vol] 32 mmol/L Normal 22 - 32 mEq/L ADM SS Creatinine [Mass/Vol] 0.67 mg/dL Normal 0.50 - 1.20 mg/dL ADM SS Comment on above: Interpretive Data: T esting performed on [employer] Private analyzer using enzymatic creatinine methodology. Electrolyte Balance 9.0 mEq/L Normal 4.0 - 15 .0 mEq/L ADM SS Eosinophils (Bld) [#/Vol] 0.1 103/mcL Normal 0.0 - 0.7 10^3/mcL AH Workflow SS Eosinophils/100 WBC (Bld) 1.9 % Normal 0.0 - 6.0 % AH Workflow SS Erythrocyte distribution width (RBC) [Ratio] 13.9 % Normal 11.5 - 15.5 % AH Workflow SS Estimated Glomerular Filtration Rate 98 ml/min/1.73sqm Invalid Interpretation Code Chemistry S Comment on above: Interpretive Data: [...] to calculate the eGFR results. Glucose [Mass/Vol] 88 mg/dL Normal 82 - 115 mg/dL ADM SS Hematocrit (Bld) [Volume fraction] 38.0 % Normal 34.0 - 46.0 % Workflow SS Hemoglobin (Bld) [Mass/Vol] 13.0 G/dL Normal 12.0 - 16.0 G/dL AH Workflow SS Lymphocytes (Bld) [#/Vol] 2.8 103/mcL Normal 0.9 - 4.3 10^3/mcL Workflow SS Lymphocytes/100 WBC (Bld) 38.8 % Normal 20.0 - 40.0 % AH Workflow SS MCH (RBC) [Entitic mass] 30.3 pg Normal 27.0 - 33.0 pg AH Workflow SS MCHC 34.3 G/dL Normal 32.0 - 36.0 G/dL AH Workflow SS MCV (RBC) [Entitic vol] 88.2 fL Normal 80.0 - 99.0 fL AH Workflow SS Monocytes (Bld) [#/Vol] 0.4 103/mcL Normal 0.1 - 1.4 10^3/mcL Workflow SS Monocytes/100 WBC (Bld) 5.7 % Normal 2.0 - 13.0 % AH Workflow SS Neutrophils (Bld) [#/Vol] 3.8 103/mcL Normal 2.3 - 8.1 10^3/mcL AH Workflow SS Neutrophils/100 WBC (Bld) 52.9 % Normal 50.0 - 75.0 % AH Workflow SS Platelet mean volume (Bld) [Entitic vol] 6.7 fL Normal 6.6 - 10.5 fL AH Workflow SS Platelets (Bld) [#/Vol] 359 103/mcL Normal 150 - 450 10^3/mcL AH Workflow SS Potassium [Moles/Vol] 5.0 mmol/L Normal 3.5 - 5.0 mEq/L AH ADM SS RBC (Bld) [#/Vol] 4.31 106/mcL Normal 4.10 - 5.3 0 10^6/mcL AH Workflow SS Sodium [Moles/Vol] 143 mmol/L Normal 136 - 145 mEq/L AH ADM SS Urea nitrogen [Mass/Vol] 13.0 mg/dL Normal 8.0 - 22.0 mg/dL AH ADM SS Urea nitrogen/Creatinine [Mass ratio] 19.4 ratio Normal 10.0 - 22.0 ratio AH ADM SS WBC (Bld) [#/Vol] 7.3 103/mcL Normal 4.5 - 10.8 10^3/mcL AH Workflow SS Pulmonary Visit Reporton Pulmonary Visit Report [facility] Pulmonary Medicine of [address] [place] [address] OFFICE VISIT Date of Service: 02/05/25 MR#: [id number] Acct: [id number] Name: SANJUANA CALVO Rep #: [id number] : 1960 Provider: Carolyne Johnson NP Age/Sex: 64/F Location: [facility] Status: Signed Assessment and Plan Assessment and Plan (1) Asthma-COPD overlap syndrome: Status: Chronic Comment: FEV1 71% Plan: She has had some breakthrough symptoms and in her asthma overlap syndrome. There is a 12% change seen with use of beta agonist in FEV1. The patient has increased her use of albuterol and has consistently been using it 2-3 times daily. I have recommended that her ICS dosage be advanced on triple therapy and have discontinued Trelegy 100 and have ordered Trelegy 200 for her to begin. I have reviewed oral care recommendations with inhaler use. Continue to use albuterol on an as-needed basis but I would suspect that she will be able to reduce the frequency of albuterol use. Call for worsening respiratory symptoms or respiratory illness. Follow-up in June after LDCT. (2) Smoking greater than 40 pack years: Status: Chronic Comment: quit 2014 Plan: She remains appropriate for repeat LDCT which is due in May 2025, previously ordered accordingly. She is encouraged to continue with the LDCT screening program. Continue to live a smoke-free lifestyle. Continue to follow with cardiology. I believe that this could be the cause of her borderline 6MWT especially because her gas transfer is only mildly reduced which at 70% predicted usually does not suggest a trend towards lower oxygenation levels in the 6MWT study. Medications: New fluticasone-umeclid in-vilanter 200-62.5-25 mcg (Trelegy Ellipta) 1 inh inhalation Q24H 3 ea 3RF Plan Details Follow Up: June 2025 (LMR) HPI HPI Comments Details: This 64-year-old [...] or thrush. She uses albuterol rescue inhaler 2-3 times daily when she is at work. She will use it more often with cold of hot air exposure or when she is physically exerting at work. She does have shortness of breath on occasion, however this has not progressed. She denies wheeze and cough. She denies any chest pain or palpitations. She does have occasional chest tightness at work with exertion and heat and humidity. She also denies any fever, chills or body aches. If you recall, she has a greater than [id number] smoking history but quit completely back in 2014. She has obtained RSV, flu vaccine for this year. She has had COVID booster. Low-dose CT lung screening completed on May 20, 2024 shows hyperinflation with diffuse emphysematous changes worse in the upper lobes with bullous formation. The CT notes stable scarring and bronchiectasis and soft tissue prominence in both lung apices worse on the left side. It indicates focal thickening along the right minor fissure. The recommendation is to repeat LDCT in 12 months. She is planning for a heart cath soon as she has had a racing heart rate at times. She is following with [facility]. Documentation reviewed with patient includes: PFT from December 25, 2024 shows mild large air restrictive ventilatory defect with associated hyperinflation, air trapping and symmetric reduction in diffusion capacity 6-minute walk test from January 01, 2025 shows no indication of the use of supplemental oxygen at this time. However close interval follow-up was recommended given the degree of oxygen desaturation noted during the study. 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 Normal [facility] 6 Minute Walk Teston 025 6 Minute Walk Test y [facility] Pulmonary Services/Neurology [address] [place] [address] MR#: [id number] Acct: [id number] Name: SANJUANA CALVO Rep #: [id number] : 1960 64 From: Rajesh Whatley DO Referring Dr: Carolyne Johnson [employer]ENIOR PRODUCT ANALYST-C Status: REG CLI Location: PSN Date: Sex: F C PSN 6 Minute Walk Test 6 Minute Walk Test 6 Minute Walk Test: 6 Minute Walk Test PSN:6-Minute Walk Test Start: 01/01/25 12:45 Freq: Status: Active Protocol: [id number] Document 01/01/25 12:46 COUNT INCLUDES THE [facility] (Rec: 01/01/25 12:52 COUNT INCLUDES THE [facility] [id number]) 6 Minute Walk Test Date Performed 01/01/25 Time Performed 12:30 Height 5 ft 5.5 in Weight: 168 lb Weight in Pounds 168.[address]: Carolyne Johnson Assistive device None used: Pre-test Oxygen Delivery Room Air Method Pulse Ox (%) 98 Pulse Rate (60-100 76 beats/min) Dyspnea Hung Scale ( 0 0-10) Exertion Hung Scale 6 (6-20) 1st minute Oxygen Delivery Room Air Method Pulse Ox (%) 96 Pulse Rate (60-100 82 beats/min) Dyspnea Hung Scale ( 0 0-10) Number of Rests 0 Taken 2nd minute Oxygen Delivery Room Air Method Pulse Ox (%) 94 Pulse Rate (60-100 85 beats/min) Dyspnea Hung Scale ( 2 0-10) Number of Rests 0 Taken 3rd minute Oxygen Delivery Room Air Method Pulse Ox (%) 90 Pulse Rate (60-100 91 beats/min) Dyspnea Hung Scale ( 2 0-10) Number of Rests 0 Taken 4th minute Oxygen Delivery Room Air Method Pulse Ox (%) 90 Pulse Rate (60-100 93 beats/min) Dyspnea Hung Scale ( 3 0-10) Number of Rests 0 Taken Reported Symptoms Increased Work of Breathing 5th minute Oxygen Delivery Room Air Method Pulse Ox (%) 89 Pulse Rate (60-100 94 beats/min) Dyspnea Hung Scale ( 3 0-10) Number of Rests 0 Taken Reported Symptoms Increased Work of Breathing 6th minute Oxygen Delivery Room Air Method Pulse Ox (%) 89 Pulse Rate (60-100 90 beats/min) Dyspnea Hung Scale ( 3 0-10) Number of Rests 0 Taken Reported Symptoms Increased Work of Breathing Post-test Oxygen Delivery Room Air Method Pulse Ox (%) 97 Pulse Rate (60-100 80 beats/min) Dyspnea Hung Scale ( 0 0-10) Exertion Hung Scale 6 (6-20) Full Laps Walked 18 Partial Lap, Number 7 of Tiles Walked Total Distance 1069 Walked (ft) Interpretation Interpretation: The patient ambulated 1069 feet over the course of 6 minutes beginning on room air without assistive devices. Pretesting oxygen saturation was noted to be 98% on room air. With ambulation, the shira oxygen saturation was 89%. This represents a significant exertional oxygen desaturation, consistent with a pulmonary limitation to exercise tolerance. Recommendations Recommendations: There is no indication for the use of supplemental oxygen at this time. However, close interval follow-up is recommended, given the degree of oxygen desaturation noted during this study. 01/05/25 1244 Date Rajesh Whatley DO CC: Date Dictated: 01/05/25 1243 Date Transcribed: 01/05/251242 Special Crimes Investigator: Dr. Rajesh Whatley, DO Signed Normal [facility] .GFRon 10-29-2024 Estimated Glomerular Filtration Rate 92 ml/min/1.73sqm Normal [facility] Comment on above: Result Comment: Stages of [...] calculate the eGFR results. Performed By: #### B MP, GFR #### [address] [address] BMPon 10-29-2024 BUN/Creatinine Ratio 27 ratio Normal 7-27 [facility] Comment on above: Performed By: #### B MP, GFR #### [place] [address] [place], [place] [address] Calcium [Mass/Vol] 9.3 mg/dL Normal 8.4-10.2 [facility] Comment on above: Performed By: #### B MP, GFR #### [address] [address] Chloride [Moles/Vol] 107 mmol/L Normal 98-107 [facility] Comment on above: Performed By: #### B MP, GFR #### [address] [address] CO2 [Moles/Vol] 31 mmol/L Normal 23-31 [facility] Comment on above: Performed By: #### B MP, GFR #### [address] [address] Creatinine [Mass/Vol] 0.73 mg/dL Normal 0.51-0.95 [facility] Comment on above: Performed By: #### B MP, GFR #### [address] [address] Electrolyte Balance 7.0 mEq/L Normal 4.0-15.0 [facility] Comment on above: Performed By: #### B MP, GFR #### [address] [address] Glucose [Mass/Vol] 113 mg/dL Normal 80-115 [facility] Comment on above: Performed By: #### B MP, GFR #### [address] [address] Potassium [Moles/Vol] 5.3 mmol/L High 3.5-5.1 [facility] Comment on above: Performed By: #### B MP, GFR #### [address] [address] Sodium [Moles/Vol] 145 mmol/L Normal 136-145 [facility] Comment on above: Performed By: #### B MP, GFR #### [address] [address] Urea nitrogen [Mass/Vol] 20 mg/dL High 7-18 [facility] Comment on above: Performed By: #### B MP, GFR #### [address] [address] LABORATORYOrdered By: SYSTEM SYSTEM on 10-29-2024 Calcium [...] Estimated Glomerular Filtration Rate 69 ml/min/1.73sqm Normal [facility] Comment on above: Result Comment: Stages of [...] the eGFR results. Performed By: #### A 1C, CBC, ADIFF, ANEU, CMP, GFR, LIPID, VIDH #### [address] [address] BMPon 10-16-2024 BUN/Creatinine Ratio 24 ratio Normal 7-27 [facility] Comment on above: Performed By: #### A 1C, CBC, ADIFF, ANEU, CMP, GFR, LIPID, VIDH #### [address] [address] Calcium [Mass/Vol] 9.3 mg/dL Normal 8.4-10.2 [facility] Comment on above: Performed By: #### A 1C, CBC, ADIFF, ANEU, CMP, GFR, LIPID, VIDH #### [address] [address] Chloride [Moles/Vol] 110 mmol/L High 98-107 [facility] Comment on above: Performed By: #### A 1C, CBC, ADIFF, ANEU, CMP, GFR, LIPID, VIDH #### [address] [address] CO2 [Moles/Vol] 31 mmol/L Normal 23-31 [facility] Comment on above: Performed By: #### A 1C, CBC, ADIFF, ANEU, CMP, GFR, LIPID, VIDH #### [address] [address] Creatinine [Mass/Vol] 0.93 mg/dL Normal 0.55-1.02 [facility] Comment on above: Result Comment: Test ing performed on Siemens Dimension EXL analyzer using a modified kinetic Bobby technique. Performed By: #### A 1C, CBC, ADIFF, ANEU, CMP, GFR, LIPID, VIDH #### [address] [address] Electrolyte Balance 5.0 mEq/L Normal 4.0-15.0 [facility] Comment on above: Performed By: #### A 1C, CBC, ADIFF, ANEU, CMP, GFR, LIPID, VIDH #### [address] [address] Glucose [Mass/Vol] 98 mg/dL Normal 80-115 [facility] Comment on above: Performed By: #### A 1C, CBC, ADIFF, ANEU, CMP, GFR, LIPID, VIDH #### [address] [address] Potassium [Moles/Vol] 6.0 mmol/L High 3.5-5.1 [facility] Comment on above: Performed By: #### A 1C, CBC, ADIFF, ANEU, CMP, GFR, LIPID, VIDH #### [address] [address] Sodium [Moles/Vol] 146 mmol/L High 136-145 [facility] Comment on above: Performed By: #### A 1C, CBC, ADIFF, ANEU, CMP, GFR, LIPID, VIDH #### [address] [address] Urea nitrogen [Mass/Vol] 22 mg/dL High 7-18 [facility] Comment on above: Performed By: #### A 1C, CBC, ADIFF, ANEU, CMP, GFR, LIPID, VIDH #### [address] [address] .GFRon 09-29-2024 Estimated Glomerular Filtration Rate 80 ml/min/1.73sqm Normal [facility] Comment on above: Result Comment: Stages of [...] the eGFR results. Performed By: #### A 1C, CBC, ADIFF, ANEU, CMP, GFR, LIPID, VIDH #### [address] [address] BMPon 09-29-2024 BUN/Creatinine Ratio 18 ratio Normal 7-27 [facility] Comment on above: Performed By: #### A 1C, CBC, ADIFF, ANEU, CMP, GFR, LIPID, VIDH #### [address] [address] Calcium [Mass/Vol] 9.7 mg/dL Normal 8.4-10.2 [facility] Comment on above: Performed By: #### A 1C, CBC, ADIFF, ANEU, CMP, GFR, LIPID, VIDH #### [address] [address] Chloride [Moles/Vol] 104 mmol/L Normal 98-107 [facility] Comment on above: Performed By: #### A 1C, CBC, ADIFF, ANEU, CMP, GFR, LIPID, VIDH #### [address] [address] CO2 [Moles/Vol] 30 mmol/L Normal 23-31 [facility] Comment on above: Performed By: #### A 1C, CBC, ADIFF, ANEU, CMP, GFR, LIPID, VIDH #### [address] [address] Creatinine [Mass/Vol] 0.82 mg/dL Normal 0.55-1.02 [facility] Comment on above: Result Comment: Test ing performed on Siemens Dimension EXL analyzer using a modified kinetic Bobby technique. Performed By: #### A 1C, CBC, ADIFF, ANEU, CMP, GFR, LIPID, VIDH #### [address] [address] Electrolyte Balance 5.0 mEq/L Normal 4.0-15.0 [facility] Comment on above: Performed By: #### A 1C, CBC, ADIFF, ANEU, CMP, GFR, LIPID, VIDH #### [address] [address] Glucose [Mass/Vol] 108 mg/dL Normal 80-115 [facility] Comment on above: Performed By: #### A 1C, CBC, ADIFF, ANEU, CMP, GFR, LIPID, VIDH #### [address] [address] Potassium [Moles/Vol] 5.2 mmol/L High 3.5-5.1 [facility] Comment on above: Performed By: #### A 1C, CBC, ADIFF, ANEU, CMP, GFR, LIPID, VIDH #### [place] [address] Sodium [Moles/Vol] 139 mmol/L Normal 136-145 [facility] Comment on above: Performed By: #### A 1C, CBC, ADIFF, ANEU, CMP, GFR, LIPID, VIDH #### [address] [address] Urea nitrogen [Mass/Vol] 15 mg/dL Normal 7-18 [facility] Comment on above: Performed By: #### A 1C, CBC, ADIFF, ANEU, CMP, GFR, LIPID, VIDH #### [address] [address] MA MAMMOGRAM SCREENING BILAT ERAL W/TOMOon 09-27-2024 MA MAMMOGRAM SCREENING BILATERAL W/DREAD ORIGINAL FROM: [place] [address] PROCEDURE FOR: SANJUANANata CALVO [address] [place] [address] Home: PID#: [id number] Exam#: [id number] : 1960 Age: 64 TO: [place] [address] Fax: NO FAX EXAMINATION: SCREENING DIGITAL BILATERAL [...] Continued screening with annual mammograms is recommended. [facility] risk calculations, generated with the history provided, [...] addition to annual mammographic screening per the [employer]. BIRADS: BI-RADS: 2: Benign RECALL: 1 year screening RECALL TYPE: mammo LETTER SENT: Normal BI-RADS 1 and 2 Interpreted by: Ezequiel Wong MD Preliminary Report By: Ezequiel Wong MD Electronically signed By Ezequiel Wong MD Dictated Date: 09/27/2024 7:55:54 PM Prelim Date: 09/27/2024 7:57:07 PM Sign Date: 09/27/2024 7:57:07 PM Ordering Provider: PATY VERONICA Outpatient Facility Physical Therapist: CARMELITA LEARY RT(R)(CT) letter sent: Normal BI-RADS 1 and 2 Mammogram BI-RADS: 2 Benign Normal [facility] .Auto Diffon 08-29-2024 Basophil, Absolute 0.1 10 3/mcL Normal 0.0-0.2 [facility] Comment on above: Performed By: #### A 1C, CBC, ADIFF, ANEU, CMP, GFR, LIPID, VIDH #### [facility] [address] [place], [place] [address] Basophils/100 WBC (Bld) 0.8 % Normal 0.0-2.5 [facility] Comment on above: Performed By: #### A 1C, CBC, ADIFF, ANEU, CMP, GFR, LIPID, VIDH #### [address] [address] Eosinophil, Absolute 0.2 10 3/mcL Normal 0.0-0.7 [facility] Comment on above: Performed By: #### A 1C, CBC, ADIFF, ANEU, CMP, GFR, LIPID, VIDH #### [address] [address] Eosinophils/100 WBC (Bld) 2.8 % Normal 0.0-7.0 [facility] Comment on above: Performed By: #### A 1C, CBC, ADIFF, ANEU, CMP, GFR, LIPID, VIDH #### [address] [address] Lymphocyte, Absolute 2.4 10 3/mcL Normal 0.9-4.3 [facility] Comment on above: Performed By: #### A 1C, CBC, ADIFF, ANEU, CMP, GFR, LIPID, VIDH #### [address] [address] Lymphocytes/100 WBC (Bld) 36.4 % Normal 20.0-40.0 [facility] Comment on above: Performed By: #### A 1C, CBC, ADIFF, ANEU, CMP, GFR, LIPID, VIDH #### [address] [address] Monocyte, Absolute 0.4 10 3/mcL Normal 0.1-1.4 [facility] Comment on above: Performed By: #### A 1C, CBC, ADIFF, ANEU, CMP, GFR, LIPID, VIDH #### [address] [address] Monocytes/100 WBC (Bld) 5.9 % Normal 2.0-13.0 [facility] Comment on above: Performed By: #### A 1C, CBC, ADIFF, ANEU, CMP, GFR, LIPID, VIDH #### [address] [place], [place] [address] Neutrophils/100 WBC (Bld) 54.1 % Normal 50.0-75.0 [facility] Comment on above: Performed By: #### A 1C, CBC, ADIFF, ANEU, CMP, GFR, LIPID, VIDH #### [address] [place], [place] [address] .GFRon 08-29-2024 Estimated Glomerular Filtration Rate 85 ml/min/1.73sqm Normal [facility] Comment on above: Result Comment: Stages of [...] the eGFR results. Performed By: #### A 1C, CBC, ADIFF, ANEU, CMP, GFR, LIPID, VIDH #### [address] [address] .NEUABSon 08-29-2024 Neutrophil, Absolute 3.5 10 3/mcL Normal 2.3-8.1 [facility] Comment on above: Performed By: #### A 1C, CBC, ADIFF, ANEU, CMP, GFR, LIPID, VIDH #### [address] [place], [place] [address] A1Con 08-29-2024 Glucose [Mass/Vol] 111 mg/dL Normal [facility] Comment on above: Result Comment: Graciela mated Average Glucose calculated by equation ((28.7xA1C)-46.7) Estimated average glucose (eAG) is a calculated value from Hemoglobin A1C and is associate financial representative of the average blood glucose level in the last 2-3 month period. Normal range: less than 114 mg/dL Performed By: #### A 1C, CBC, ADIFF, ANEU, CMP, GFR, LIPID, VIDH #### [place] [address] HbA1c (Bld) [Mass fraction] 5.5 % Normal 4.3-6.4 [facility] Comment on above: Performed By: #### A 1C, CBC, ADIFF, ANEU, CMP, GFR, LIPID, VIDH #### [place] [address] CBCon 08-29-2024 Erythrocyte distribution width (RBC) [Ratio] 14.6 % Normal 11.5-15.5 [facility] Comment on above: Performed By: #### A 1C, CBC, ADIFF, ANEU, CMP, GFR, LIPID, VIDH #### [place] [address] Hematocrit (Bld) [Volume fraction] 37.6 % Normal 34.0-46.0 [facility] Comment on above: Performed By: #### A 1C, CBC, ADIFF, ANEU, CMP, GFR, LIPID, VIDH #### [place] [address] Hgb 12.8 G/dL Normal 12.0-16.0 [facility] Comment on above: Performed By: #### A 1C, CBC, ADIFF, ANEU, CMP, GFR, LIPID, VIDH #### [place] [address] MCH (RBC) [Entitic mass] 30.2 pg Normal 27.0-33.0 [facility] Comment on above: Performed By: #### A 1C, CBC, ADIFF, ANEU, CMP, GFR, LIPID, VIDH #### [place] [address] MCHC 34.0 G/dL Normal 32.0-36.0 [facility] Comment on above: Performed By: #### A 1C, CBC, ADIFF, ANEU, CMP, GFR, LIPID, VIDH #### [place] [address] MCV (RBC) [Entitic vol] 88.9 fL Normal 80.0-99.0 [facility] Comment on above: Performed By: #### A 1C, CBC, ADIFF, ANEU, CMP, GFR, LIPID, VIDH #### [address] [address] Platelet 355 10 3/mcL Normal 150-450 [facility] Comment on above: Performed By: #### A 1C, CBC, ADIFF, ANEU, CMP, GFR, LIPID, VIDH #### [address] [address] Platelet mean volume (Bld) [Entitic vol] 6.9 fL Normal 6.6-10.5 [facility] Comment on above: Performed By: #### A 1C, CBC, ADIFF, ANEU, CMP, GFR, LIPID, VIDH #### [address] [address] RBC 4.23 10 6/mcL Normal 4.10-5.30 [facility] Comment on above: Performed By: #### A 1C, CBC, ADIFF, ANEU, CMP, GFR, LIPID, VIDH #### [address] [address] WBC 6.5 10 3/mcL Normal 4.5-10.8 [facility] Comment on above: Performed By: #### A 1C, CBC, ADIFF, ANEU, CMP, GFR, LIPID, VIDH #### [address] [address] CMPon 08-29-2024 Albumin Level 3.6 G/dL Normal 3.4-4.8 [facility] Comment on above: Performed By: #### A 1C, CBC, ADIFF, ANEU, CMP, GFR, LIPID, VIDH #### [address] [address] Albumin/Globulin [Mass ratio] 1.2 {ratio} Normal 1.1-2.5 [facility] Comment on above: Performed By: #### A 1C, CBC, ADIFF, ANEU, CMP, GFR, LIPID, VIDH #### [address] [address] ALP [Catalytic activity/Vol] 87 U/L Normal 40-135 [facility] Comment on above: Performed By: #### A 1C, CBC, ADIFF, ANEU, CMP, GFR, LIPID, VIDH #### [address] [place], [place] [address] ALT [Catalytic activity/Vol] 21 U/L Normal 14-59 [facility] Comment on above: Performed By: #### A 1C, CBC, ADIFF, ANEU, CMP, GFR, LIPID, VIDH #### [address] [address] AST [Catalytic activity/Vol] 18 U/L Normal 10-40 [facility] Comment on above: Performed By: #### A 1C, CBC, ADIFF, ANEU, CMP, GFR, LIPID, VIDH #### [address] [address] Bili Total 0.3 mg/dL Normal 0.2-1.0 [facility] Comment on above: Result Comment: Use of this assay is not recommended for patients undergoing treatment with eltrombopag due to the potential for falsely elevated results. Performed By: #### A 1C, CBC, ADIFF, ANEU, CMP, GFR, LIPID, VIDH #### [address] [address] BUN/Creatinine Ratio 26 ratio Normal 7-27 [facility] Comment on above: Performed By: #### A 1C, CBC, ADIFF, ANEU, CMP, GFR, LIPID, VIDH #### [address] [address] Calcium [Mass/Vol] 9.2 mg/dL Normal 8.4-10.2 [facility] Comment on above: Performed By: #### A 1C, CBC, ADIFF, ANEU, CMP, GFR, LIPID, VIDH #### [address] [address] Chloride [Moles/Vol] 108 mmol/L High 98-107 [facility] Comment on above: Performed By: #### A 1C, CBC, ADIFF, ANEU, CMP, GFR, LIPID, VIDH #### [place] [address] CO2 [Moles/Vol] 28 mmol/L Normal 23-31 [facility] Comment on above: Performed By: #### A 1C, CBC, ADIFF, ANEU, CMP, GFR, LIPID, VIDH #### [place] [address] Creatinine [Mass/Vol] 0.78 mg/dL Normal 0.55-1.02 [facility] Comment on above: Result Comment: Test ing performed on [employer] Dimension EXL analyzer using a modified kinetic Bobby technique. Performed By: #### A 1C, CBC, ADIFF, ANEU, CMP, GFR, LIPID, VIDH #### [place] [address] Electrolyte Balance 6.0 mEq/L Normal 4.0-15.0 [facility] Comment on above: Performed By: #### A 1C, CBC, ADIFF, ANEU, CMP, GFR, LIPID, VIDH #### [place] [address] Globulin 3.0 G/dL Normal 1.5-3.8 [facility] Comment on above: Performed By: #### A 1C, CBC, ADIFF, ANEU, CMP, GFR, LIPID, VIDH #### [place] [address] Glucose [Mass/Vol] 84 mg/dL Normal 80-115 [facility] Comment on above: Performed By: #### A 1C, CBC, ADIFF, ANEU, CMP, GFR, LIPID, VIDH #### [place] [address] Potassium [Moles/Vol] 5.9 mmol/L High 3.5-5.1 [facility] Comment on above: Performed By: #### A 1C, CBC, ADIFF, ANEU, CMP, GFR, LIPID, VIDH #### [facility] [address] [place], [place] [address] Sodium [Moles/Vol] 142 mmol/L Normal 136-145 [facility] Comment on above: Performed By: #### A 1C, CBC, ADIFF, ANEU, CMP, GFR, LIPID, VIDH #### [place] [address] [place], [place] [address] Total Protein 6.6 G/dL Normal 6.4-8.2 [facility] Comment on above: Performed By: #### A 1C, CBC, ADIFF, ANEU, CMP, GFR, LIPID, VIDH #### [place] [address] [place], [place] [address] Urea nitrogen [Mass/Vol] 20 mg/dL High 7-18 [facility] Comment on above: Performed By: #### A 1C, CBC, ADIFF, ANEU, CMP, GFR, LIPID, VIDH #### [place] [address] [place], [place] [address] LABORATORYOrdered By: SYSTEM SYSTEM on 08-29-2024 25-hydroxyvitamin [...] above: Interpretive Data: T esting performed on Siemens Dimension EXL analyzer using [...] calculated value from Hemoglobin A1C and is associate financial representative of the average blood glucose level [...] 08-29-2024 Cholesterol [Mass/Vol] 116 mg/dL Normal 0-200 [facility] Comment on above: Result Comment: Chol esterol Reference Interval: Less than 200 Desirable 200-239 Borderline high risk 240 and above High risk Performed By: #### A 1C, CBC, ADIFF, ANEU, CMP, GFR, LIPID, VIDH #### [place] [address] [place], [place] [address] Cholesterol in HDL [Mass/Vol] 65 mg/dL High 40-60 [facility] Comment on above: Performed By: #### A 1C, CBC, ADIFF, ANEU, CMP, GFR, LIPID, VIDH #### [place] [address] [place], [place] [address] Cholesterol in LDL [Mass/Vol] 45 mg/dL Normal 0-130 [facility] Comment on above: Performed By: #### A 1C, CBC, ADIFF, ANEU, CMP, GFR, LIPID, VIDH #### [place] [address] [place], [place] [address] Triglyceride [Mass/Vol] 28 mg/dL Normal 0-150 [facility] Comment on above: Result Comment: Trig lyceride Reference Interval: Less than 150 Normal 150-199 Borderline high risk 200-499 High risk 500 or higher Very high risk Performed By: #### A 1C, CBC, ADIFF, ANEU, CMP, GFR, LIPID, VIDH #### [place] [address] [place], [place] [address] VIDHon 08-29-2024 Vit. D 25-Hydroxy 66.4 ng/mL Normal [facility] Comment on above: Result Comment: Inte rpretive Values Based on Total 25(OH) Vitamin D: Deficient <20 ng/mL Insufficient 20 - <30 ng/mL Sufficient 30-100 ng/mL Performed By: #### A 1C, CBC, ADIFF, ANEU, CMP, GFR, LIPID, VIDH #### [place] [address] [place], [place] [address] Pulmonary Visit Reporton Pulmonary Visit Report [facility] Pulmonary Medicine of [address] [place] [address] OFFICE VISIT Date of Service: 06/26/24 MR#: [id number] Acct: [id number] Name: SANJUANA CALVO Rep #: [id number] : 1960 Provider: Carolyne Johnson NP Age/Sex: 64/F Location: [facility].PMW Status: Signed Assessment and Plan Assessment and [...] you recall, she has a greater than 03-toan-dcat smoking history but quit completely back in [...] mcg inhalat.po (more content not included)... Normal [facility] Low Dose CT Lung Screeningon 05-20-[address] Lung Scre[address] [facility] Imaging Services [address] [place], [place] [id number] Low Dose CT Lung Screening MR#: [id number] Acct: [id number] Name: SANJUANA CALVO Rep #: [id number] : 1960 F 64 From: Jose Manuel og MD PCP: Dr. Paty Halko, DO Status: REG CLI Study: Low Dose CT Lung Screening Date of Exam: 05/20 Exam# [id number] Ordering Dr: Gay Norton SENIOR PRODUCT ANALYST SENIOR PRODUCT ANALYST-C -[id number] STUDY: LOW DOSE CT LUNG CANCER [...] Jose Manuel Metz MD at 10:42 EST Reading Location ID and State: [address] [place] [address] , Service support , CC: LUIS Norton; Dr. Paty Veronica DO Special Crimes Investigator: Signed Normal [facility] MA MAMMOGRAM SCREENING BILAT ERAL W/TOMOon 09-13-2023 MA MAMMOGRAM SCREENING BILATERAL W/DREAD ORIGINAL FROM: [address] [address] PROCEDURE FOR: SANJUANA [address] [place] [address] Home: PID#: [id number] Exam#: [id number] : 1960 Age: 63 TO: PATY VERONICA DO [address] [place], [place] [address] Fax: NO FAX EXAMINATION: SCREENING DIGITAL BILATERAL [...] addition to annual mammographic screening per the [employer]. BIRADS: MAMMOGRAM BI-RADS: 2: Benign finding RECALL: 1 year screening RECALL TYPE: mammo LETTER SENT: Normal BI-RADS 1 and 2 Interpreted by: Ezequiel Wong MD Preliminary Report By: Ezequiel Wong MD Electronically signed By Ezequiel Wong MD Dictated Date: 09/13/2023 10:44:35 AM Prelim Date: 09/13/2023 10:50:53 AM Sign Date: 09/13/2023 10:50:53 AM Ordering Provider: PATY VERONICA Outpatient Facility Physical Therapist: JC GARCIA RT (R) (M) (CT) letter sent: Normal BI-RADS 1 and 2 Mammogram BI-RADS: 2 Benign Normal [facility] ([place]) BD BONE DENSITY DEXA AXIAL S [facility] 09-11-2023 BD BONE DENSITY DEXA AXIAL SKELETON [...] 09/11/2023 3:21:15 PM Ordering Provider: PATY VERONICA [facility] ([place]) .GFRon 08-28-2023 GFR 78 ml/min/1.73sqm [facility] ([place]) Comment on above: Result Comment: GFR Population [...] Performed By: #### B MP, GFR #### [place] [id number] GFR Non- 64 ml/min/1.73sqm Normal [facility] ([place]) Comment on above: Result Comment: GFR Population [...] Performed By: #### B MP, GFR #### [address] [address] BMPon 08-28-2023 BUN/Creatinine Ratio 15 ratio Normal 7-27 [facility] ([place]) Comment on above: Performed By: #### B MP, GFR #### [address] [address] Calcium [Mass/Vol] 9.6 mg/dL Normal 8.4-10.2 [facility] ([place]) Comment on above: Performed By: #### B MP, GFR #### [address] [address] Chloride [Moles/Vol] 104 mmol/L Normal 98-107 [facility] ([place]) Comment on above: Performed By: #### B MP, GFR #### [address] [address] CO2 [Moles/Vol] 29 mmol/L Normal 23-31 [facility] ([place]) Comment on above: Performed By: #### B MP, GFR #### [address] [address] Creatinine [Mass/Vol] 0.89 mg/dL Normal 0.55-1.02 [facility] ([place]) Comment on above: Performed By: #### B MP, GFR #### [address] [address] Electrolyte Balance 8.0 mEq/L Normal 4.0-15.0 [facility] ([place]) Comment on above: Performed By: #### B MP, GFR #### [id number] [place], [place] [address] Glucose [Mass/Vol] 79 mg/dL Low 80-115 [facility] ([place]) Comment on above: Performed By: #### B MP, GFR #### [address] [address] Potassium [Moles/Vol] 4.9 mmol/L Normal 3.5-5.1 [facility] ([place]) Comment on above: Performed By: #### B MP, GFR #### [address] [address] Sodium [Moles/Vol] 141 mmol/L Normal 136-145 [facility] ([place]) Comment on above: Performed By: #### B MP, GFR #### [address] [address] Urea nitrogen [Mass/Vol] 13 mg/dL Normal 7-18 [facility] ([place]) Comment on above: Performed By: #### B MP, GFR #### [address] [address] LABORATORYOrdered By: SYSTEM SYSTEM on 08-28-2023 Calcium [...] Basophil, Absolute 0.1 10 3/mcL Normal 0.0-0.2 [facility] ([place]) Comment on above: Performed By: #### V IDH, LIPID, GFR, ANEU, CMP, CBC, A1C, ADIFF #### [address] [address] Basophils/100 WBC (Bld) 0.8 % Normal 0.0-2.5 [facility] ([place]) Comment on above: Performed By: #### V IDH, LIPID, GFR, ANEU, CMP, CBC, A1C, ADIFF #### [address] [address] Eosinophil, Absolute 0.2 10 3/mcL Normal 0.0-0.4 [facility] ([place]) Comment on above: Performed By: #### V IDH, LIPID, GFR, ANEU, CMP, CBC, A1C, ADIFF #### [address] [address] Eosinophils/100 WBC (Bld) 3.1 % Normal 0.0-7.0 [facility] ([place]) Comment on above: Performed By: #### V IDH, LIPID, GFR, ANEU, CMP, CBC, A1C, ADIFF #### [address] [address] Lymphocyte, Absolute 2.1 10 3/mcL Normal 0.8-3.9 [facility] ([place]) Comment on above: Performed By: #### V IDH, LIPID, GFR, ANEU, CMP, CBC, A1C, ADIFF #### [address] [address] Lymphocytes/100 WBC (Bld) 30.1 % Normal 10.0-50.0 [facility] ([place]) Comment on above: Performed By: #### V IDH, LIPID, GFR, ANEU, CMP, CBC, A1C, ADIFF #### [address] [address] Monocyte, Absolute 0.4 10 3/mcL Normal 0.2-1.0 [facility] ([place]) Comment on above: Performed By: #### V IDH, LIPID, GFR, ANEU, CMP, CBC, A1C, ADIFF #### [address] [address] Monocytes/100 WBC (Bld) 5.9 % Normal 1.7-13.0 [facility] ([place]) Comment on above: Performed By: #### V IDH, LIPID, GFR, ANEU, CMP, CBC, A1C, ADIFF #### Nav[address] [address] Neutrophils/100 WBC (Bld) 60.1 % Normal 37.0-80.0 [facility] ([place]) Comment on above: Performed By: #### V IDH, LIPID, GFR, ANEU, CMP, CBC, A1C, ADIFF #### Navid [address] [address] .GFRon 08-21-2023 GFR 69 ml/min/1.73sqm Normal [facility] ([place]) Comment on above: Result Comment: GFR Population [...] GFR, ANEU, CMP, CBC, A1C, ADIFF #### [address] [address] GFR Non- 57 ml/min/1.73sqm Normal [facility] ([place]) Comment on above: Result Comment: GFR Population [...] GFR, ANEU, CMP, CBC, A1C, ADIFF #### [place] [id number] .NEUABSon 08-21-2023 Neutrophil, Absolute 4.2 10 3/mcL Normal 2.9-6.2 [facility] ([place]) Comment on above: Performed By: #### V IDH, LIPID, GFR, ANEU, CMP, CBC, A1C, ADIFF #### [place] [id number] A1Con 08-21-2023 HbA1c (Bld) [Mass fraction] 5.2 % Normal 4.3-6.4 [facility] ([place]) Comment on above: Performed By: #### B MP, GFR #### [place] [address] CBCon 08-21-2023 Erythrocyte distribution width (RBC) [Ratio] 14.2 % Normal 11.5-14.5 [facility] ([place]) Comment on above: Performed By: #### V IDH, LIPID, GFR, ANEU, CMP, CBC, A1C, ADIFF #### [place] [phone] Hematocrit (Bld) [Volume fraction] 37.9 % Normal 37.0-47.0 [facility] ([place]) Comment on above: Performed By: #### V IDH, LIPID, GFR, ANEU, CMP, CBC, A1C, ADIFF #### [place] [address] Hgb 12.6 G/dL Normal 12.0-16.0 [facility] ([place]) Comment on above: Performed By: #### V IDH, LIPID, GFR, ANEU, CMP, CBC, A1C, ADIFF #### [place] [phone] MCH (RBC) [Entitic mass] 29.4 pg Normal 27.0-31.2 [facility] ([place]) Comment on above: Performed By: #### V IDH, LIPID, GFR, ANEU, CMP, CBC, A1C, ADIFF #### [address] [address] MCHC 33.3 G/dL Normal 33.0-37.0 [facility] ([place]) Comment on above: Performed By: #### V IDH, LIPID, GFR, ANEU, CMP, CBC, A1C, ADIFF #### [address] [address] MCV (RBC) [Entitic vol] 88.2 fL Normal 80.0-94.0 [facility] ([place]) Comment on above: Performed By: #### V IDH, LIPID, GFR, ANEU, CMP, CBC, A1C, ADIFF #### [address] [address] Platelet 391 10 3/mcL Normal 130-400 [facility] ([place]) Comment on above: Performed By: #### V IDH, LIPID, GFR, ANEU, CMP, CBC, A1C, ADIFF #### [address] [address] Platelet mean volume (Bld) [Entitic vol] 6.9 fL Low 7.4-10.4 [facility] ([place]) Comment on above: Performed By: #### V IDH, LIPID, GFR, ANEU, CMP, CBC, A1C, ADIFF #### [address] [address] RBC 4.30 10 6/mcL Normal 4.20-5.40 [facility] ([place]) Comment on above: Performed By: #### V IDH, LIPID, GFR, ANEU, CMP, CBC, A1C, ADIFF #### [address] [address] WBC 6.9 10 3/mcL Normal 4.6-10.8 [facility] ([place]) Comment on above: Performed By: #### V IDH, LIPID, GFR, ANEU, CMP, CBC, A1C, ADIFF #### [address] [address] CMPon 08-21-2023 Albumin Level 3.6 G/dL Normal 3.4-4.8 [facility] ([place]) Comment on above: Performed By: #### V IDH, LIPID, GFR, ANEU, CMP, CBC, A1C, ADIFF #### [address] [address] Albumin/Globulin [Mass ratio] 1.0 {ratio} Low 1.1-2.5 [facility] ([place]) Comment on above: Performed By: #### V IDH, LIPID, GFR, ANEU, CMP, CBC, A1C, ADIFF #### [address] [address] ALP [Catalytic activity/Vol] 116 U/L Normal 40-135 [facility] ([place]) Comment on above: Performed By: #### V IDH, LIPID, GFR, ANEU, CMP, CBC, A1C, ADIFF #### [address] [address] ALT [Catalytic activity/Vol] 21 U/L Normal 14-59 [facility] ([place]) Comment on above: Performed By: #### V IDH, LIPID, GFR, ANEU, CMP, CBC, A1C, ADIFF #### [address] [address] AST [Catalytic activity/Vol] 16 U/L Normal 10-40 [facility] ([place]) Comment on above: Performed By: #### V IDH, LIPID, GFR, ANEU, CMP, CBC, A1C, ADIFF #### [address] [address] Bili Total 0.6 mg/dL Normal 0.2-1.0 [facility] ([place]) Comment on above: Result Comment: Use of this assay is not recommended for patients undergoing treatment with eltrombopag due to the potential for falsely elevated results. Performed By: #### V IDH, LIPID, GFR, ANEU, CMP, CBC, A1C, ADIFF #### [address] [address] BUN/Creatinine Ratio 14 ratio Normal 7-27 [facility] ([place]) Comment on above: Performed By: #### V IDH, LIPID, GFR, ANEU, CMP, CBC, A1C, ADIFF #### [address] [address] Calcium [Mass/Vol] 9.4 mg/dL Normal 8.4-10.2 [facility] ([place]) Comment on above: Performed By: #### V IDH, LIPID, GFR, ANEU, CMP, CBC, A1C, ADIFF #### [address] [address] Chloride [Moles/Vol] 106 mmol/L Normal 98-107 [facility] ([place]) Comment on above: Performed By: #### V IDH, LIPID, GFR, ANEU, CMP, CBC, A1C, ADIFF #### [address] [address] CO2 [Moles/Vol] 30 mmol/L Normal 23-31 [facility] ([place]) Comment on above: Performed By: #### V IDH, LIPID, GFR, ANEU, CMP, CBC, A1C, ADIFF #### [address] [address] Creatinine [Mass/Vol] 0.99 mg/dL Normal 0.55-1.02 [facility] ([place]) Comment on above: Performed By: #### V IDH, LIPID, GFR, ANEU, CMP, CBC, A1C, ADIFF #### [address] [address] Electrolyte Balance 9.0 mEq/L Normal 4.0-15.0 [facility] ([place]) Comment on above: Performed By: #### V IDH, LIPID, GFR, ANEU, CMP, CBC, A1C, ADIFF #### [address] [address] Globulin 3.5 G/dL Normal [facility] ([place]) Comment on above: Performed By: #### V IDH, LIPID, GFR, ANEU, CMP, CBC, A1C, ADIFF #### [address] [address] Glucose [Mass/Vol] 98 mg/dL Normal 80-115 [facility] ([place]) Comment on above: Performed By: #### V IDH, LIPID, GFR, ANEU, CMP, CBC, A1C, ADIFF #### [address] [address] Potassium [Moles/Vol] 5.5 mmol/L High 3.5-5.1 [facility] ([place]) Comment on above: Performed By: #### V IDH, LIPID, GFR, ANEU, CMP, CBC, A1C, ADIFF #### [address] [address] Sodium [Moles/Vol] 145 mmol/L Normal 136-145 [facility] ([place]) Comment on above: Performed By: #### V IDH, LIPID, GFR, ANEU, CMP, CBC, A1C, ADIFF #### [address] [address] Total Protein 7.1 G/dL Normal 6.4-8.2 [facility] ([place]) Comment on above: Performed By: #### V IDH, LIPID, GFR, ANEU, CMP, CBC, A1C, ADIFF #### [address] [address] Urea nitrogen [Mass/Vol] 14 mg/dL Normal 7-18 [facility] ([place]) Comment on above: Performed By: #### V IDH, LIPID, GFR, ANEU, CMP, CBC, A1C, ADIFF #### [address] [address] LIPIDon 08-21-2023 Cholesterol [Mass/Vol] 196 mg/dL Normal 0-200 [facility] ([place]) Comment on above: Result Comment: Chol esterol Reference Interval: Less than 200 Desirable 200-239 Borderline high risk 240 and above High risk Performed By: #### B MP, GFR #### [address] [address] Cholesterol in HDL [Mass/Vol] 58 mg/dL Normal 40-60 [facility] ([place]) Comment on above: Performed By: #### B MP, GFR #### [place] [id number] [place], [place] [address] Cholesterol in LDL [Mass/Vol] 122 mg/dL Normal 0-130 [facility] ([place]) Comment on above: Performed By: #### B MP, GFR #### [address] [place] [address] [place], [place] [address] Triglyceride [Mass/Vol] 81 mg/dL Normal 0-150 [facility] ([place]) Comment on above: Result Comment: Trig lyceride Reference Interval: Less than 150 Normal 150-199 Borderline high risk 200-499 High risk 500 or higher Very high risk Performed By: #### B MP, GFR #### [place] [place] [address] [place] [id number] VIDHon 08-21-2023 Vit. D 25-Hydroxy 49.1 ng/mL Normal [facility] ([place]) Comment on above: Result Comment: Inte rpretive Values Based on Total 25(OH) Vitamin D: Deficient <20 ng/mL Insufficient 20 - <30 ng/mL Sufficient 30-100 ng/mL Performed By: #### V IDH, LIPID, GFR, ANEU, CMP, CBC, A1C, ADIFF #### [place] [phone] LABORATORYOrdered By: Opal Li on 05-23-2022 Calcium [...] 27 ratio AO ADM SS LABORATORYOrdered By: Johnathan Mcfarlane on 05-02-2022 Basophil, Absolute 0.0 103/mcL [...] AO ADM SS CT CHEST W IVCONon 1 CT CHEST W IVCON * * *Final Report* * * DATE OF EXAM: Feb 10 2021 11:06AM [facility] 0539 - CT CHEST W IVCON / [...] small to further characterize and appears stable/5:153. Construction Materials Tester (topogram) images: No additional findings. IMPRESSION: Bullous emphysema. Previously reported bandlike density in the right upper lobe has not significantly changed. Chronic left upper lobe pleural-parenchymal opacities with associated architecture distortion, cavitation, bronchial thickening and bronchiectasis. DDX includes postinfectious/infl ammatory changes with fibrosis or neoplastic process. Enlarged left subpectoral lymph nodes. Special Crimes Investigator: PSCB Transcribe Date/Time: Feb 10 2021 3:33P Dictated by : Drew ALVARADO MD This examination was interpreted and the report reviewed and electronically signed by: Drew ALVARADO MD on Feb 10 2021 3:58PM EST [id number] Normal [facility] Vital Signs Date Time Vital Sign Value Performing Clinician Facility 02-05-2025 08:08-0400 Body height 166.[address] Paty Veronica DO Work Phone: [facility] 02-05-2025 08:08-0400 Body mass index (BMI) [Ratio] 27.8 kg/m2 Dr. Paty Veronica DO Work Phone: [facility] 02-05-2025 08:08-0400 Body temperature 97.3 [degF] Dr. Paty Veronica DO Work Phone: [facility] 02-05-2025 08:08-0400 Body weight 73.[address] Paty Veronica DO Work Phone: [facility] 02-05-2025 08:08-0400 Diastolic blood pressure 79 mm[Hg] Dr. Paty Veronica DO Work Phone: [facility] 02-05-2025 08:08-0400 Heart rate 71 /min Dr. Paty Veronica DO Work Phone: [facility] 02-05-2025 08:08-0400 Respiratory rate 18 /min Dr. Paty Veronica DO Work Phone: [facility] 02-05-2025 08:08-0400 SaO2% (BldA) [Mass fraction] 98 % Dr. Paty Veronica DO Work Phone: [facility] 02-05-2025 08:08-0400 Systolic blood pressure 132 mm[Hg] Dr. Paty Veronica DO Work Phone: [facility] 01-01-2025 12:46-0400 Body height 166.[address] Paty Veronica DO Work Phone: [facility] 01-01-2025 12:46-0400 Body weight 76.[address] Paty Veronica DO Work Phone: [facility] 01-01-2025 12:46-0400 Heart rate 76 /min Dr. Paty Veronica DO Work Phone: [facility] 01-01-2025 12:46-0400 SaO2% (BldA) [Mass fraction] 98 % Dr. Paty Veronica DO Work Phone: [facility] 09-04-2023 09:39-0500 Diastolic Blood Pressure Non-Invasive 76 mm[Hg] EDNA CHARLENE DO [facility] 09-04-2023 09:39-0500 Heart rate 76 /min EDNA CHARLENE DO [facility] 09-04-2023 09:39-0500 Respiratory rate 18 /min EDNA CHARLENE DO [facility] 09-04-2023 09:39-0500 Systolic Blood Pressure Non-Invasive 128 mm[Hg] EDNA CHARLENE DO [facility] 09-04-2023 09:31-0500 Diastolic Blood Pressure Non-Invasive 72 mm[Hg] EDNA CHARLENE DO [facility] 09-04-2023 09:31-0500 Heart rate 79 /min EDNA CHARLENE DO [facility] 09-04-2023 09:31-0500 Respiratory rate 19 /min EDNA CHARLENE DO [facility] 09-04-2023 09:31-0500 Systolic Blood Pressure Non-Invasive 126 mm[Hg] EDNA CHARLENE DO [facility] 09-04-2023 09:25-0500 Heart rate 77 /min EDNA CHARLENE DO [facility] 09-04-2023 09:25-0500 Respiratory rate 20 /min EDNA CHARLENE DO [facility] 09-04-2023 09:21-0500 Diastolic Blood Pressure Non-Invasive 68 mm[Hg] EDNA CHARLENE DO [facility] 09-04-2023 09:21-0500 Systolic Blood Pressure Non-Invasive 102 mm[Hg] EDNA CHARLENE DO [facility] 09-04-2023 09:15-0500 Body temperature 96.98 [degF] EDNA CHARLENE DO [facility] 09-04-2023 09:10-0500 Respiratory Rate - Anes 18 br/min EDNA CHARLENE DO [facility] 09-04-2023 09:05-0500 Respiratory Rate - Anes 19 br/min EDNA CHARLENE DO [facility] 09-04-2023 08:31-0500 Body height 165.1 cm EDNA CHARLENE DO [facility] 09-04-2023 08:31-0500 Body temperature 97.52 [degF] EDNA CHARLENE DO [facility] 09-04-2023 08:31-0500 Body weight 85 kg EDNA CHARLENE DO [facility] 09-04-2023 08:31-0500 Heart rate 79 /min EDNA CHARLENE DO [facility] 04-17-2023 07:54-0400 Body height 165.1 cm SENIOR PRODUCT ANALYST-C Rochelle Arnold SENIOR PRODUCT ANALYST Work Phone: [facility] 04-17-2023 07:54-0400 Body mass index (BMI) [Ratio] 30.6 kg/m2 SENIOR PRODUCT ANALYST-C Rochelle Arnold SENIOR PRODUCT ANALYST Work Phone: [facility] 04-17-2023 07:54-0400 Body temperature 97.3 [degF] SENIOR PRODUCT ANALYST-C Rochelle Arnold SENIOR PRODUCT ANALYST Work Phone: [facility] 04-17-2023 07:54-0400 Body weight 83.46 kg SENIOR PRODUCT ANALYST-C Rochelle Arnold SENIOR PRODUCT ANALYST Work Phone: [facility] 04-17-2023 07:54-0400 Diastolic blood pressure 71 mm[Hg] SENIOR PRODUCT ANALYST-C Rochelle Arnold SENIOR PRODUCT ANALYST Work Phone: [facility] 04-17-2023 07:54-0400 Heart rate 80 /min SENIOR PRODUCT ANALYST-C Rochelle Arnold SENIOR PRODUCT ANALYST Work Phone: [facility] 04-17-2023 07:54-0400 Respiratory rate 20 /min SENIOR PRODUCT ANALYST-C Rochelle Arnold SENIOR PRODUCT ANALYST Work Phone: [facility] 04-17-2023 07:54-0400 SaO2% (BldA) [Mass fraction] 99 % SENIOR PRODUCT ANALYST-C Rochelle Arnold SENIOR PRODUCT ANALYST Work Phone: [facility] 04-17-2023 07:54-0400 Systolic blood pressure 119 mm[Hg] SENIOR PRODUCT ANALYST-C Rochelle Arnold SENIOR PRODUCT ANALYST Work Phone: [facility] 01-14-2023 06:42-0400 Body mass index (BMI) [Ratio] 28.8 kg/m2 SENIOR PRODUCT ANALYST-C Rochelle Arnold SENIOR PRODUCT ANALYST Work Phone: [facility] 01-14-2023 06:42-0400 Body temperature 97 [degF] SENIOR PRODUCT ANALYST-C Rochelle Arnold SENIOR PRODUCT ANALYST Work Phone: [facility] 01-14-2023 06:42-0400 Body weight 78.47 kg SENIOR PRODUCT ANALYST-C Rochelle Arnold SENIOR PRODUCT ANALYST Work Phone: [facility] 01-14-2023 06:42-0400 Diastolic blood pressure 80 mm[Hg] SENIOR PRODUCT ANALYST-C Rochelle Arnold SENIOR PRODUCT ANALYST Work Phone: [facility] 01-14-2023 06:42-0400 Heart rate 87 /min SENIOR PRODUCT ANALYST-C Rochelle Clayton SENIOR PRODUCT ANALYST Work Phone: [facility] 01-14-2023 06:42-0400 Respiratory rate 18 /min SENIOR PRODUCT ANALYST-C Rochelle Arnold SENIOR PRODUCT ANALYST Work Phone: [facility] 01-14-2023 06:42-0400 SaO2% (BldA) [Mass fraction] 97 % SENIOR PRODUCT ANALYST-C Rochelle Arnold SENIOR PRODUCT ANALYST Work Phone: [facility] 01-14-2023 06:42-0400 Systolic blood pressure 129 mm[Hg] SENIOR PRODUCT ANALYST-C Rochelle Arnold SENIOR PRODUCT ANALYST Work Phone: [facility] 12-27-2022 08:15-0400 Body height 165.[address] Case Mejia Work Phone: [facility] 12-27-2022 08:15-0400 Body weight 83.[address] Case Mejia Work Phone: [facility] 12-27-2022 08:15-0400 Heart rate 80 /min Dr. Case Mejia Work Phone: [facility] 12-27-2022 08:15-0400 Inhaled oxygen concentration 21 % Dr. Case Mejia Work Phone: [facility] 12-27-2022 08:15-0400 SaO2% (BldA) [Mass fraction] 96 % Dr. Case Mejia Work Phone: [facility] Encounters Encounter Date Encounter Type Care Provider Facility Start: 05-21-2025 ambulatory Carolyne Childers ty:[facility] Start: 03-03-2025 End: 03-04-2025 ambulatory RU GRIFFITH MD Facility:A Start: 03-03-2025 End: 03-04-2025 Observation RU GRIFFITH MD [facility] Start: 02-24-2025 End: 02-24-2025 Admission to establishment RU GRIFFITH MD [facility] Start: 02-24-2025 End: 02-24-2025 ambulatory RU GRIFFITH MD Facility:A Start: 02-05-2025 End: 02-05-[address] Paty Veronica DO Work Phone: -[facility] Start: 02-05-2025 End: 02-05-2025 Patient encounter procedure SHAHLA Johnson -[facility] Work Phone: Start: 01-29-2025 End: 01-29-2025 ambulatory GAGANDEEP ALCAZAR MD Facility:[facility] Start: 01-29-2025 End: 01-29-2025 Patient encounter procedure GAGANDEEP ALCAZAR MD [facility] Start: 01-05-2025 ambulatory Carolyne Johnson Facil ty:[facility] Start: 01-05-2025 Non-patient / Non-visit Dr. Rajesh mendoza DO -[facility] Start: 01-01-2025 End: 01-01-[address] Paty Veronica DO Work Phone: -Pulmonary Services/Neurology Start: 01-01-2025 End: 01-01-2025 Patient encounter procedure SHAHLA Johnson -[facility] Services/Neurology Work Phone: Start: 01-01-2025 End: 01-01-2025 ambulatory Carolyne Johnson Facility:[facility] Start: 12-25-2024 End: 12-25-[address] Paty Veronica DO Work Phone: -Pulmonary Services/Neurology Start: 12-25-2024 End: 12-25-2024 Patient encounter procedure SHAHLA [facility] Work Phone: Start: 12-25-2024 End: 12-25-2024 ambulatory Carolyne Johnson Facility:[facility] Start: 11-18-2024 End: 11-18-2024 ambulatory PATY HALKO DO [facility] Start: 11-18-2024 End: 11-18-2024 Patient encounter procedure PATY HALKO DO [facility] Start: 10-29-2024 End: 10-29-2024 ambulatory PATY HALKO DO [facility] Start: 10-29-2024 End: 10-29-2024 Patient encounter procedure PATY HALKO DO [facility] Start: 10-16-2024 End: 10-16-2024 ambulatory PATY HALKO DO [facility] Start: 09-29-2024 End: 09-29-2024 ambulatory PATY HALKO DO [facility] Start: 09-25-2024 End: 09-25-2024 ambulatory PATY HALKO DO [facility] Start: 08-29-2024 End: 08-29-2024 ambulatory PATY HALKO DO [facility] Start: 08-29-2024 End: 08-29-2024 Patient encounter procedure PATY HALKO DO [facility] Start: 06-26-2024 End: 06-26-2024 ambulatory Paty Veronica Facility:[facility] Start: 05-20-2024 End: 05-20-2024 ambulatory Gay Norton NP Facility:[facility] Start: 09-11-2023 End: 09-12-2023 ambulatory PATY WILLEMKO Facility:[facility] Start: 09-11-2023 End: 09-11-2023 Patient encounter procedure PATY HALKO DO [facility] Start: 09-04-2023 End: 09-04-2023 ambulatory EDNA CHANG DO Facility:[facility] Start: 09-04-2023 End: 09-04-2023 Minor Procedure EDNA CHANG DO [facility] Start: 08-28-2023 End: 08-29-2023 ambulatory PATY VERONICA Facility:[facility] Start: 08-28-2023 End: 08-28-2023 Patient encounter procedure PATY VERONICA DO [facility] Start: 08-21-2023 End: 08-22-2023 ambulatory PATY VERONICA Facility:[facility] Start: 05-10-2023 End: 05-10-2023 ambulatory SENIOR PRODUCT ANALYST-C Rochelle Arnold SENIOR PRODUCT ANALYST Work Phone: [facility] Work Phone: Start: 05-10-2023 End: 05-10-2023 Patient encounter procedure SENIOR PRODUCT ANALYST-Venita Arnold SENIOR PRODUCT ANALYST Work Phone: [facility] Work Phone: Start: 04-17-2023 End: 04-17-2023 Patient encounter procedure SENIOR PRODUCT ANALYST-Venita Arnold SENIOR PRODUCT ANALYST Work Phone: [facility] Work Phone: Start: 01-14-2023 End: 01-14-2023 Patient encounter procedure SENIOR PRODUCT ANALYST-Venita Arnold SENIOR PRODUCT ANALYST Work Phone: [facility] Work Phone: Start: 12-28-2022 Non-patient / Non-visit Dr. Apryl Mejia Work Phone: [facility] Start: 12-27-2022 End: 12-27-[address] Case Mejia Work Phone: [facility] Work Phone: Start: 12-27-2022 End: 12-27-[address] Case Mejia Work Phone: [facility]-Pulmonary Services/Neurology Start: 12-25-2022 Non-patient / Non-visit Dr. Apryl Mejia Work Phone: [facility] Start: 12-24-2022 End: 12-24-[address] Case Mejia Work Phone: [facility] Work Phone: Start: 12-24-2022 End: 12-24-[address] Case Mejia Work Phone: [facility]-Pulmonary Services/Neurology Start: 05-23-2022 End: 05-23-2022 Patient encounter procedure [facility] Start: 05-02-2022 End: 05-02-2022 Patient encounter procedure PATY VERONICA DO [facility] Start: 12-06-2021 End: 12-06-2021 Patient encounter procedure PATY VERONICA DO [facility] Procedures Date Procedure Procedure Detail Performing Clinician Start: 07-08-2024 Cataract extraction and insertion of intraocular lens RU GRIFFITH MD Start: 07-08-2023 Colonoscopy RU GRIFFITH MD Start: 05-10-2023 CT of chest SENIOR PRODUCT ANALYST-C Beth Arnold NP Work Phone: Start: 03-14-2020 Colonoscopy PATY GRADY DO Start: 07-08-2019 Bronchoscopy RU GRIFFITH MD Start: 07-08-1998 Insertion of pleural tube drain RU GRIFFITH MD Start: 07-08-1998 Lung structure (body structure) PATY VERONICA DO Comment on above: COLLAPSED CT PLACED Immunizations Immunization Date Immunization Notes Care Provider Fa dasha 02-22-2025 influenza virus vacc ine, unspecified formulation RU GRIFFITH MD [facility] 03-21-2024 influenza virus vacc ine, unspecified formulation PATY WILLEMPANTERA DO [facility] 03-21-2024 SARS-CoV-2 (COVID-19 ) [id number] PATY WILLEMPANTERA DO [facility] 08-16-2023 pneumococcal 20-corona nt conjugate vaccine PATY VERONICA DO [facility] 04-26-2023 tetanus toxoid, redu marimar diphtheria toxoid, and acellular pertussis vaccine, adsorbed PATY VERONICA DO [facility] 04-20-2023 [id number](manuela laws [id number])bi vac PATY VERONICA DO [facility] 03-09-2023 influenza virus vacc ine, unspecified formulation PATY VERONICA DO [facility] 02-22-2023 Misc Vaccine 1 PATY VERONICA DO [facility] Comment on above: Result Comment: RSV -[facility] 02-22-2023 RSV vaccine preF3, recombinant RU GRIFFITH MD [facility] 07-08-2022 RSV vaccine preF3, recombinant 2 PATY VERONICA DO [facility] Comment on above: Result Comment: at [facility] 05-02-2022 influenza, injectabl e, quadrivalent, contains preservative; Translations: [Fluarix PF Quadrivalent ] PATY VERONICA DO [facility] 10-27-2021 hepatitis B vaccine, adult dosage PATY VERONICA DO [facility] Comment on above: Result Comment: [facility] 05-31-2021 hepatitis B vaccine, adult dosage PATY VERONICA DO [facility] Comment on above: Result Comment: [facility] 05-04-2021 COVID-19, mRNA, LNP- S, PF, 30 mcg/0.3 mL dose; Translations: [[employer] COVID-19 Vaccine] PATY VERONICA DO [facility] 04-29-2021 hepatitis B vaccine, adult dosage PATY VERONICA DO [facility] Comment on above: Result Comment: [facility] 04-29-2021 hepatitis B vaccine, unspecified formulation PATY VERONICA DO [facility] Comment on above: Result Comment: [facility] 04-16-2021 influenza virus vacc ine, unspecified formulation PATY VERONICA DO [facility] 04-11-2021 zoster vaccine recombinant PATY VERONICA DO [facility] Comment on above: Result Comment: [facility] 01-31-2021 zoster vaccine recombinant PATY VERONICA DO [facility] 01-17-2021 SARS-CoV-2 mRNA (tozinameran) vaccine PATY VERONICA DO [facility] 10-22-2020 SARS-CoV-2 mRNA (tozinameran) vaccine PATY VERONICA [facility] 09-30-2020 SARS-CoV-2 mRNA (tozinameran) vaccine PATY VERONICA [facility] 05-15-2019 influenza virus vacc ine, unspecified formulation PATY VERONICA DO [facility] 05-16-2018 pneumococcal polysaccharide vaccine, 23 valent PATY VERONICA DO [facility] 08-12-2017 influenza, injectabl e, quadrivalent, preservative free PATY VERONICA [facility] 09-05-2016 tetanus and diphther ia toxoids, adsorbed, preservative free, for adult use (5 Lf of tetanus toxoid and 2 Lf of diphtheria toxoid) PATY VERONICA [facility] 09-05-2016 tetanus toxoid, redu marimar diphtheria toxoid, and acellular pertussis vaccine, adsorbed PATY VERONICA DO [facility] 09-04-2016 tetanus and diphther ia toxoids, adsorbed, preservative free, for adult use (5 Lf of tetanus toxoid and 2 Lf of diphtheria toxoid) PATY VERONICA [facility] 04-27-2008 influenza virus vacc ine, unspecified formulation PATY VERONICA [facility] 05-07-2007 influenza virus vacc ine, unspecified formulation PATY VERONICA DO [facility] Payers Date Payer Category Payer Private Health Insurance [id number] 2024 Unknown [id number] 2024 Self-pay [id number] 2023 Unknown [id number] 2023 Unknown [id number] 1960 Unknown [id number] 2..840.1.042889.3.579.2. 1960 Unknown [id number] .16.840.1.109036.3.579.2. 1960 Unknown [id number] .16.840.1.583087.3.579.2. 1960 Unknown [id number] ..840.1.986863.3.579.2. 1960 Unknown [id number] .16.840.1.538283.3.579.2. 1960 Unknown [id number] .16.840.1.728403.3.579.2. 1960 Unknown [id number] 2.16.840.1.565482.3.579.2. 1960 Unknown [id number] 2.16.840.1.989078.3.579.2. 1960 Unknown [id number] 2.16.840.1.127064.3.579.2.627 1960 Unknown [id number] 2.16.840.1.516153.3.579.2.627 1960 Unknown [id number] 2.16.840.1.331680.3.579.2.627 1960 Unknown [id number] 2.16.840.1.238287.3.579.2.627 1960 Unknown [id number] 2.16.840.1.012738.3.579.2.627 Unknown [facility] [id number] Unknown [id number] 2.16.840.1.158140.3.579.2.462 Unknown [id number] 2.16.840.1.504335.3.579.2.462 Unknown [id number] 2.16.840.1.994718.3.579.2.462 Unknown [id number] 2.16.840.1.095650.3.579.2.462 Unknown [id number] 2.16.840.1.562471.3.579.2.462 Unknown [id number] 2.16.840.1.958861.3.579.2.462 Unknown [id number] 2.16.840.1.146626.3.579.2.462 Unknown [id number] 2.16.840.1.138913.3.579.2.462 Social History Date Type Detail Facility Start: 03-10-2020 End: 02-24-2025 Tobacco smoking status Ex-smoker (finding) [facility] Start: 1960 Sex Assigned At Female [facility] Start: 07-31-2022 End: 04-17-2023 Tobacco smoking status NHIS Unknown if ever smoked [facility] Sexual Orientation [facility] Start: 06-02-2019 Sex Female (finding) [facility] Functional Status Date Assessment Result Facility 09-04-2023 Functional Status Maintained [facility] dav[facility] Mental Status Date Assessment Result Facility 09-04-2023 Mental Status Oriented x 4 [facility] Clinical Notes 02-10-2021 to 03-04-2025 Note Date & Type Note Facility 03-04-2025 Hospital Discharg e instructions Patient Education 03/04/2025 09:11:56 3-- EP Study/Ablation (04/2018) (CUSTOM) ELECTROPHYSIOLOGY STUDY/ABLATION Discharge Instructions DIET INSTRUCTIONS Resume diet as prior to procedure ACTIVITIES Do not drive FOR 24 HOURS No heavy lifting GREATER THAN 20 POUNDS or pushing or straining FOR 3 DAYS BATHING/SHOWERING May tub bathe in 4 days Do not sit in hot tub, whirlpool, or swim for 4 days May shower today WOUND CARE You may go home with a Bandage over your procedure site. Keep this Bandage on for the next 24 hours and then remove it leaving the site open to air. Some degree of bruising and tenderness is normal around the procedure site. It will take a while for any bruising to completely resolve. Keep your site clean and dry. You need to report the following to your risk developer: Any draining or oozing from the site Any swelling at the site Any increased pain or tenderness at the site Any numbness in your leg where the procedure was done Any sign of infection WATCH FOR SIGNS OF INFECTION: Elevated temperature above 100.5 Redness or swelling Increased pain Foul odor or drainage. If you have any questions, please call your doctor at the number listed on your follow up instructions. Follow all instructions given to you by your physician. Document Released: 06/24/2006 Document Revised: 06/10/2013 Document Reviewed: 06/25/2014 ExitCare Patient Information 2014 [email or web address]. This information is not intended to replace advice given to you by your health care provider. Make sure you discuss any questions you have with your health care provider. Follow Up Care 02/15/2025 13:42:59 With:RU GRIFFITH MD Address: [facility] [address] [place] [address]- [phone] When:05/27/2025 11:00:00 Comments:THIS APPOINTMENT WILL BE WITH MAURI DYER CNP [facility] 03-04-2025 Summary of episod e note Discharge Instructions Thank you for allowing [facility] to assist you with your healthcare needs. The following is important discharge information regarding your hospital visit. Your Care Team PATY VERONICA DO What to do next Scheduled Follow-Up Appointments Appointment Type When With Where Contact Information StatusCV OV 05/27/2025 11:00 AM MAURI CORNELIUS APRN-MARJORIE [facility] Confirmed PC Wellness Annual 08/25/2025 08:00 AM PATY LUDWIG DO [facility] Confirmed Follow Up Appointments Follow Up with RU GRIFFITH MD When:05/27/2025 11:00 AM EST Where:[address] [place] [address]- [phone] Additional Information: THIS APPOINTMENT WILL BE WITH MAURI DYER CNP The Following Activity and Diet Have Been Ordered for You Discharge Activity - Ordered -- May Shower, No heavy lifting (>20 pounds) for the next 3 days, 03/04/25 8:12:00 EDT Discharge Return to Work, School, or Sports - Ordered -- 03/03/25, Return to Work - NO Restrictions, 03/12/25, May return to: work, 03/04/25 8:59:00 EDT Discharge Diet - Ordered -- No changes were made to your diet during your hospital stay. Please resume your pre hospitalization diet on discharge., 03/04/25 8:12:00 EDT Allergies NKA Medications Please ask your primary doctor or pharmacist before taking any other medication not listed, including over the counter drugs, herbal medications, vitamins and or supplements as they may interact with your home medications. What How Much When Why Instructions Last Dose Changed metoprolol (metoprolol succinate 25 mg oral TABLET extended release) 0.5 tab(s) by mouth Once a day Pickup at [facility] Unchanged albuterol (Ventolin HFA MDI (90 mcg/ inh) inhalation aerosol) 2 puff(s) by inhalation Four (4) times a day as needed for as needed for wheezing Unchanged ascorbic acid (Vitamin C 1000 mg oral tablet) 1 tab(s) by mouth Once a day Unchanged aspirin (aspirin 81 mg oral delayed release tablet) 1 tab(s) by mouth Once a day Unchanged calcium carbonate (calcium (as carbonate) 600 mg oral tablet) 1 tab(s) by mouth Once a day Unchanged cholecalciferol (Vitamin D3 125 mcg (5000 intl units) oral tablet) 1 tab(s) by mouth Once a day Unchanged DME (DME MISCellaneous) See instructions Chronic bronchitis COPD (chronic obstructive pulmonary disease) dispense one flutter valve dx: J42, J44.9, J84.89 Unchanged fluticasone/ umeclidinium/ vilanterol (Trelegy Ellipta 100 mcg-62.5 mcg-25 mcg/ inh inhalation powder) 1 puff(s) by inhalation Once a day Duration: 90 Days at the same time every day. Following administration, rinse mouth with water after use (do not swallow). Unchanged guaiFENesin (Mucinex 600 mg oral tablet, extended release) 1 tab(s) by mouth Once a day (in the morning) Unchanged herbal/ nutritional product Turmeric 2250mg 1 cap by mouth Every day Unchanged ibuprofen (ibuprofen 200 mg oral capsule) 2 cap by mouth Every 6 hours Unchanged multivitamin with minerals (Calcium 600+D Plus Minerals) 1 tab(s) Chewed Once a day Unchanged omeprazole (omeprazole 40 mg oral delayed release capsule) 1 cap by mouth Once a day Duration: 90 Days 0700 Unchanged rosuvastatin (rosuvastatin 20 mg oral tablet) 1 tab(s) by mouth Daily at bedtime Unchanged sodium polystyrene sulfonate (sodium polystyrene sulfonate 15 g/ 60 mL oral and rectal suspension) 60 Milliliter by mouth Once a day Duration: 90 Days Pharmacy Information [facility]: [id number] [place], [place] [phone] Please take this list to your next doctor s visit. Bring all medications you take, including over the counter medications, herbals and other supplements with you to your doctor s visit. Patients and families are reminded to discard old lists and to update any records with all medication providers or retail pharmacies. Education Materials ELECTROPHYSIOLOGY STUDY/ABLATION Discharge Instructions DIET INSTRUCTIONS Resume diet as prior to procedure ACTIVITIES Do not drive FOR 24 HOURS No heavy lifting GREATER THAN 20 POUNDS or pushing or straining FOR 3 DAYS BATHING/SHOWERING May tub bathe in 4 days Do not sit in hot tub, whirlpool, or swim for 4 days May shower today WOUND CARE You may go home with a Bandage over your procedure site. Keep this Bandage on for the next 24 hours and then remove it leaving the site open to air. Some degree of bruising and tenderness is normal around the procedure site. It will take a while for any bruising to completely resolve. Keep your site clean and dry. You need to report the following to your risk developer: Any draining or oozing from the site Any swelling at the site Any increased pain or tenderness at the site Any numbness in your leg where the procedure was done Any sign of infection WATCH FOR SIGNS OF INFECTION: Elevated temperature above 100.5 Redness or swelling Increased pain Foul odor or drainage. If you have any questions, please call your doctor at the number listed on your follow up instructions. Follow all instructions given to you by your physician. Document Released: 06/24/2006 Document Revised: 06/10/2013 Document Reviewed: 06/25/2014 ExitCare Patient Information 2015 [email or web address]. This information is not intended to replace advice given to you by your health care provider. Make sure you discuss any questions you have with your health care provider. Additional Information VACCINATE! IT SAVES LIVES! Members of the community who have not yet received the COVID-19 vaccine and would like to receive it can visit one of [facility] vaccine clinics. There are many vaccine clinic locations within the [facility]. For locations and available times, please visit [email or web address].o hio.gov/. It is important to note that some COVID mobile vaccine clinics are held outdoors and may be canceled in rainy or stormy conditions. To learn more about pediatric vaccinations (ages 5-11), we invite you to visit the [facility] webpage. https://www.[facility].org/p ages/4041-Dbono-Vczuoopcbsc-Freq asxsyw-Khdfw-Iheyfdcmr.html To learn more about the COVID-19 vaccine, we invite you to visit the CDC website for a list of frequently asked questions.https://www.cdc.gov/co ronavirus/2019-ncov/vaccines/faq .html [email or web address] Patient Portal Access Instructions: Stay connected with your healthcare team and access your personal medical information anytime with the [facility] Patient Portal. Please follow the directions below to create your [facility] account: 1.Access the email account you provided upon registration to the hospital/physician office.2.Look for an invitation email from [facility].3.Open the email and access the invitation link: Accept Invitation to [email or web address].4.Fill in the required fulton to create your account. To access your account, visit [email or web address]. Click the blue button labeled Access Patient Portal and then log in with the username and password that you created in the steps above. You will be able to view your test results, lab results, a summary of your visits, upcoming appointments and more. There is also a convenient messaging option where you can send secure messages to your provider. In addition, you will have the ability to download any documents or summaries to your computer and/or send the information securely to a physician. Remember that your healthcare information is confidential, so carefully consider who you will allow to register on the [email or web address] Patient Portal for access to your information. You can also access the [facility] Patient Portal on the [employer] ruddy. Simply click on Patient Portal and then log into your account. If you would like to receive a full copy of your medical records, please contact the [facility] Medical Records Department by calling [phone], Saturday through Saturday between 8 a.m. and 4:30 p.m. HOW TO SAFELY DISPOSE OF PRESCRIPTION MEDICATIONS Please use one of the following methods to safely dispose of your unused medications. 1.Use a drug disposal kit: the drug disposal pouch allows you to safely discard your old and unused drugs. Ask your nurse to give you one when you are discharged.2.Visit a local take-back location: Many local pharmacies and police departments have programs that collect old and unwanted prescription drugs. Call your local pharmacy or go to http://Mobvoi.Dunwello/3Q2Xx5m to find one close to you.3.Make use of household items: Use cat litter or old coffee grounds to dispose medications if other options are not available. Mix your drugs with these household products, seal them in an airtight container and throw it into the garbage. Call [facility]: [phone] to be sure your drugs can be [...] a CHART COPY. Signatures Patient Education Materials 3-- EP Study/Ablation (04/2018) (CUSTOM) Medication Leaflets My discharge plan and instructions have been reviewed and explained to me and IDARIELA PAULA S understand my current condition and have read and understand these discharge instructions. I have received a written copy of the plan/instructions. If I have questions, I am aware that I should contact my doctor. 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 Signature: Date/Time: Relationship to Patient: Witness Name/Signature: Date/Time: [facility] 03-04-2025 Note Exam Date Time Procedure Performing Provider Status 03/04/25 4:42 AM Electrocardiogram - EKG - CV KIRSTA VIVAS MD; Auth (Verified) ECG Final Report SINUS RHYTHM Electronic Signature: KRISTA NAVARRETE MD 03/04/2025 16:20:09 [id number] Anesthesiology Consult note Patient: SANJUANA CALVO Age: 64 years Sex: Female : 1960 Associated Diagnoses: None Author: ABEL PATRICK MD Preoperative Information NPO >8 hours food >2hours clear liqiods Anesthesia history Patient's history: negative. Health Status Allergies: Allergic Reactions (Selected) NKA, Allergies (1) ActiveSeverityReaction NKANone Documented Current medications: (Selected) Prescriptions Prescribed DME MISCellaneous: See Instructions, dispense one flutter valve dx: J42, J44.9, J84.89, # 1 EA, 0 Refill(s), Chronic bronchitis COPD (chronic obstructive pulmonary disease), 73.3 Trelegy Ellipta 100 mcg-62.5 mcg-25 mcg/inh inhalation powder: Dose = 1 puff(s), Inhalation, qDay, at the same time every day. Following administration, rinse mouth with water after use (do not swallow)., # 3 EA, 1 Refill(s), [facility], 161.2, cm, 02/19/25 8:48:00 EDT, Height,kg, 02/19/25 8... Ventolin HFA MDI (90 mcg/inh) inhalation aerosol: 2 puff(s), Inhalation, QID, PRN as needed for wheezing, # 6.7 gram(s), 5 Refill(s), Pharmacy: [facility], 161, cm, 12/11/23 14:16:00 EDT, Height, kg, 12/11/23 14:16:00 EDT, Dosing Weight metoprolol succinate 25 mg oral TABLET extended release: Dose : 25 mg = 1 tab(s), Oral, qDay, Do not crush or chew (controlled release), # 90 tab(s), 0 Refill(s), Pharmacy: [facility], 161.2, cm, 02/19/25 8:48:00 EDT, Height, kg, 02/19/25 8:48:00 EDT, Dosing Weight omeprazole 40 mg oral delayed release capsule: Dose : 40 mg = 1 cap(s), Oral, qDay, # 90 cap(s), 1 Refill(s), Pharmacy: [facility], 161.2, cm, 02/19/25 8:48:00 EDT, Height, kg, 02/19/25 8:48:00 EDT, Dosing Weight rosuvastatin 20 mg oral tablet: Dose : 20 mg = 1 tab(s), Oral, qHS, # 90 tab(s), 1 Refill(s), Pharmacy: [facility], 161.2, cm, 02/19/25 8:48:00 EDT, Height, kg, 02/19/25 8:48:00 EDT, Dosing Weight sodium polystyrene sulfonate 15 g/60 mL oral and rectal suspension: Dose : 15 gram(s) = 60 mL, Oral, qDay, X 90 day(s), # 5,400 mL, 1 Refill(s), 08/18/25 9:32:00 EST, Pharmacy: [facility] 1812,161.2, cm, 02/19/25 8:48:00 EDT, Height, kg, 02/19/25 8:48:00 EDT, Dosing Weight Documented Medications Documented Calcium 600+D Plus Minerals: Dose = 1 tab(s), Chewed, qDay, 0 Refill(s) Mucinex 600 mg oral tablet, extended release: Dose : 600 mg = 1 tab(s), Oral, qAM, 0 Refill(s) Vitamin C 1000 mg oral tablet: Dose : 1,000 mg = 1 tab(s), Oral, qDay, 0 Refill(s) Vitamin D3 125 mcg (5000 intl units) oral tablet: Dose : 125 mcg = 1 tab(s), Oral, qDay aspirin 81 mg oral delayed release tablet: Dose : 81 mg = 1 tab(s), Oral, qDay calcium (as carbonate) 600 mg oral tablet: Dose : 600 mg = 1 tab(s), Oral, qDay herbal/nutritional product: Turmeric 2250mg 1 cap, Oral, Daily ibuprofen 200 mg oral capsule: Dose : 400 mg = 2 cap(s), Oral, q6hr, 0 Refill(s), No qualifying data available Problem list: Medical Anxiety / SNOMED CT 11148759 / Confirmed Ingrown toenail of both feet / SNOMED CT 0293228017 / Confirmed Cervical cancer screening / SNOMED CT 5606659663 / Confirmed Chronic bronchitis / SNOMED CT 327856488 / Confirmed COPD (chronic obstructive pulmonary disease) / SNOMED CT 82708125 / Confirmed CAD (coronary artery disease) / SNOMED CT 91303933 / Confirmed Former smoker / SNOMED CT 57995800 / Confirmed Family history of uterine cancer / SNOMED CT 2975030570 / Confirmed GERD (gastroesophageal reflux disease) / SNOMED CT 172969754 / Confirmed Elevated fasting glucose / SNOMED CT 076084669 / Confirmed Immunization due / SNOMED CT 335461986 / Confirmed Lesion of cervix / SNOMED CT 870770531 / Confirmed Nodule of right lung / SNOMED CT 368310748 / Confirmed Mitral regurgitation / SNOMED CT 13360442 / Confirmed Moderate persistent asthma / SNOMED CT 8324230170 / Confirmed Onychomycosis / SNOMED CT 4466194161 / Confirmed Organizing pneumonia / SNOMED CT 823382717 / Confirmed Osteopenia / SNOMED CT 818790016 / Confirmed Overweight / SNOMED CT 636038593 / Confirmed Screening for cardiovascular condition / SNOMED CT 740333318 / Confirmed Immunity status testing / SNOMED CT 656256219 / Confirmed Screening for breast cancer / SNOMED CT 589831715 / Confirmed Screening for osteoporosis / SNOMED CT 333743762 / Confirmed Plantar fasciitis, bilateral / SNOMED CT 619190905 / Confirmed Emphysema lung / SNOMED CT 570611513 / Confirmed Screening due / SNOMED CT 966897210 / Confirmed SVT (supraventricular tachycardia) / SNOMED CT 03255716 / Confirmed Viremia / SNOMED CT 4289141 / Confirmed Vitamin D deficiency / SNOMED CT 16413627 / Confirmed Resolved: Pleuritic pain / SNOMED CT 8174057 Resolved: Pneumonia / SNOMED CT 489904632 Resolved: Rib pain / SNOMED CT 833236191 Canceled: Atherosclerosis / SNOMED CT 369847868 Canceled: Arthritis of knee / SNOMED CT 2923591388 Canceled: Asthma / SNOMED CT 814436492 Canceled: Collapsed lung / SNOMED CT 66408136 Canceled: Overweight (BMI 25.0-29.9) / SNOMED CT 3930020528 Canceled: BMI 30.0-30.9,adult / SNOMED CT 902929835 Canceled: BMI 30.0-30.9,adult / SNOMED CT 459233154 Canceled: Chronic hypoxemic respiratory failure / SNOMED CT 2739036147 Canceled: Cough / SNOMED CT 68546662 Canceled: On supplemental oxygen therapy / SNOMED CT 1440907669 Canceled: SOB (shortness of breath) on exertion / SNOMED CT 644095609 Canceled: Former smoker / SNOMED CT 79947148 Canceled: Gold salt overdose / SNOMED CT 334914536 Canceled: Hypoxia / SNOMED CT 1347626257 Canceled: Abnormal CT scan of lung / SNOMED CT 4563521749 Canceled: Right low back pain / SNOMED CT 207994939 Canceled: Stage 2 moderate COPD by GOLD classification / SNOMED CT 389107445 Canceled: Obese / SNOMED CT 9806705681 Canceled: Obese / SNOMED CT 2813831438 Canceled: BMI 27.0-27.9,adult / SNOMED CT 8336574491 Canceled: Palpitations / SNOMED CT 040853985 Canceled: S/P PICC central line placement / SNOMED CT 8682880839 Canceled: Patellofemoral syndrome / SNOMED CT 6546602736 Canceled: Well female exam with routine gynecological exam / SNOMED CT 825141494 Canceled: Depression screening / SNOMED CT 134546868 Canceled: Breast cancer screening / SNOMED CT 613263268 Canceled: Osteoporosis screening / SNOMED CT 002319576 Canceled: Encounter for well adult exam with abnormal findings / SNOMED CT 999552420 Canceled: Screen for colon cancer / SNOMED CT 209660933 Canceled: Well adolescent visit without abnormal findings / SNOMED CT 644401502 Canceled: Hospital discharge follow-up / SNOMED CT 9685606898 Canceled: Emphysema/COPD / SNOMED CT 366084470 Canceled: Need for hepatitis C screening test / SNOMED CT 846837043, Active Problems (33) Anxiety CAD (coronary artery disease) Cervical cancer screening Chronic bronchitis COPD (chronic obstructive pulmonary disease) Elevated fasting glucose Emphysema lung Family history of uterine cancer Former smoker GERD (gastroesophageal reflux disease) Glasses Hyperkalemia Immunity status testing Immunization due Ingrown toenail of both feet Lesion of cervix Mitral regurgitation Moderate persistent asthma Nodule of right lung Onychomycosis Organizing pneumonia Osteopenia Overweight Palpitations Plantar fasciitis, bilateral Screening due Screening for breast cancer Screening for cardiovascular condition Screening for osteoporosis SVT (supraventricular tachycardia) Varicose veins of legs Viremia Vitamin D deficiency Histories Past Medical History: Resolved Pleuritic pain (7732062): Resolved. Pneumonia (244531168): Resolved. Rib pain (005490096): Resolved. Family History: Cancer Sister Comments: 05/02/2021 9:49 PATY LINDQUIST DO uterine cancer Esophageal cancer Brother Emphysema of lung Brother Diabetes mellitus Mother Sister Sepsis Father Heart disease Mother Heart attack Mother Brother Irritable bowel syndrome Sister Gallbladder disease Father HTN - Hypertension Sister Lung cancer Brother Procedure history: Cataract extraction and implantation of intraocular lens (1746747597) in 2024 at 64 Years. Colonoscopy (428430688) in 2023 at 64 Years. Bronchoscopy (35365000) in 2019 at 60 Years. Colonoscopy (716044917) on 03/14/2020 at 59 Years. Insertion of chest tube (4233366215) in 1998 at 39 Years. Social History: Social & Psychosocial Habits Alcohol 03/03/2025Risk Assessment: Denies Alcohol Use 03/03/2025 Use: Never Employment/School 01/13/2025 Status: Employed Description: Full-time, [employer] in [place] Substance Abuse 03/03/2025Risk Assessment: Denies Substance Abuse 03/03/2025 Use: Never Tobacco 03/03/2025 Tobacco Use: Former smoker, quit more Type: Cigarettes Tobacco use per day: 40 Started at age: 25 Years Stopped at age: 56 Years 03/03/2025Risk Assessment: No Risk Home/Environment 03/03/2025 Living situation: Home/Independent Safe place to go: Yes Other risks in environment: minimal smoke exposure Financial concerns: No Domestic Concerns Denies Primary Log Check Scaler: Self, lives with her common-law and their son Paty Lives In Multilevel home Current Home Treatments None Special Services and Community Resources None Spouse Name Common-law , Paty Case Marital Status of Patient if Patient Independent Adult: Unmarried Comment: Edwin Case- significant other - 01/19/2020 17:34 - Gay Leary RN Nutrition/Health 03/03/2025 Type of diet: Regular Appetite Excellent Eating Difficulties None Caffeine intake amount: 4-5 cups of coffee daily Physical Examination Vital Signs (last 24 hrs) Last Charted Temp Oral36.4 DegC (MAR 03 11:50) FUJ772 mmHg (MAR 03 11:50) DBP77 mmHg (MAR 03 11:50) Measurements from flowsheet : Measurements 03/03/2025 11:50 EDT Height 163.8 cm Height in inches 64.5 inch(es) Admission Weight 74.3 kg Weight Lbs 163.5 lb Weight Method Actual Webster Body Weight 55.82 kg Type of Scale Used Standing Admission Body Mass Index 27.69 m2 General: Alert and oriented. Airway: Mallampati classification: II (soft palate, fauces, uvula visible). Dentition Evaluation: Intact. Respiratory: Lungs are clear to auscultation, Respirations are non-labored. Cardiovascular: Normal rate, Regular rhythm. Heart Sounds: Normal. Neurologic: Alert, Oriented. Review / Management Results review: Labs (Last four charted values) Na 145(MAR 03) K 3.8(MAR 03) CO2 30(MAR 03) Cl 104(MAR 03) Cr 0.68(MAR 03) BUN 13.0(MAR 03) Glucose 83(MAR 03) Ca 10.1(MAR 03) PT 12.2(MAR 03) INR 1.0(MAR 03) . Documentation reviewed: Current records. Assessment and Plan [place] [employer] Anesthesiologists (ASA) physical status classification: Class III. Anesthetic Preoperative Plan Premedication: intravenous. Anesthetic technique: MAC. Induction: intravenously. Maintenance airway. Postoperative pain management: Per surgeon. Informed consent: signed by patient. Notes: SVT, CAD, COPD. Digitally Signed by ABEL PATRICK MD on 03/03/2025 01:47 PM [id number] Note* Exam Date Time Procedure Performing Provider Status 03/03/25 12:04 PM Electrocardiogram - EKG - CV KRISTA FIGUEROA MD; Auth (Verified) ECG Final Report SINUS RHYTHM Electronic Signature: KRISTA NAVARRETE MD 03/04/2025 16:20:03 [id number] History and physical note Date of Service February 26, 2025 Primary EP: Dr. Griffith Chief Complaint SVT -> Presenting for EPS +/- RFA (03/03/25) History of Present Illness Per 's OV note dated 01/13/25: 64-year-old female has been referred for evaluation of palpitation. Patient saw her PCP and complained of intermittent palpitation lightheadedness and near syncope. She has history of hyperlipidemia and palpitatoin. Patient had Holter monitoring which showed sinus rhythm with average heart rate of 84. She had episodes of narrow complex tachycardia/SVT longest was 26 beats. She reported symptoms associated with sinus tachycardia monitoring. Patient reports multiple episodes of palpitation. These episodes start suddenly. She occasionally feels presyncopal and feels like that she might pass out. She reports that she has had these episodesfor more than 10 years. However prior Holter monitoring did not show any arrhythmia. She has no family history of SCD. Her brother has pacemaker. 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 She has been started on metoprolol by her primary care. Review of Systems Pertinent positives included within the HPI. Physical Exam Vitals and Measurements No qualifying data available. Per 's OV note dated 01/13/25: Physical Examination: - Constitutional: Oriented. No distress. - Cardiovascular: Normal rate, regular rhythm, S1&S2. - Pulmonary/Chest: Bilateral respiratory sounds. No rhonchi. - Abdominal: Soft. No tenderness - Musculoskeletal: No edema - Neurological: Alert and oriented. Follows command Lab Results No 36 Hour Lab Data Assessment/Plan Per RM's OV note dated 01/13/25: 1. SVT (supraventricular tachycardia) Recurrent episodes of symptomatic palpitation associated with presyncope. She has had these episodes for years. Last Holter monitoring revealed episodes of narrow complex tachycardia. Longest episode was 26 beats. We discussed diagnostic and treatment options, including EP study and ablation. Medical therapy with beta-blockers also discussed. She prefers to proceed with EPS. The risks, benefits and alternatives of the ablation procedure were discussed with the patient. Therisks including, but not limited to, the risks of bleeding, radiation exposure, injury to vascular,cardiac and surrounding structures, stroke, cardiac perforation, tamponade, need for emergent open heart surgery, need for pacemaker implantation, Injury to the phrenic nerve, cardiac arrest etc werediscussed in detail. The patient opted to proceed with the ablation. Stop Metoprolol two days prior to ablation. Also ordered echo to rule out structural heart disease. Problem List/Past Medical History Ongoing Anxiety CAD (coronary artery disease) Cervical cancer screening Chronic bronchitis COPD (chronic obstructive pulmonary disease) Elevated fasting glucose Emphysema lung Family history of uterine cancer Former smoker GERD (gastroesophageal reflux disease) Immunity status testing Immunization due Ingrown toenail of both feet Lesion of cervix Mitral regurgitation Moderate persistent asthma Nodule of right lung Onychomycosis Organizing pneumonia Osteopenia Overweight Plantar fasciitis, bilateral Screening due Screening for breast cancer Screening for cardiovascular condition Screening for osteoporosis SVT (supraventricular tachycardia) Viremia Vitamin D deficiency Historical Pleuritic pain Pneumonia Rib pain Procedure/Surgical History Cataract extraction and implantation of intraocular lens: 2024 Colonoscopy: 2023 Bronchoscopy: 2019 Colonoscopy: 03/14/20 Insertion of chest tube: 1998 Medications Home Medications (15) Active aspirin 81 mg oral delayed release tablet 81 mg = 1 tab(s), Oral, qDay calcium (as carbonate) 600 mg oral tablet 600 mg = 1 tab(s), Oral, qDay Calcium 600+D Plus Minerals 1 tab(s), Chewed, qDay DME MISCellaneous See Instructions herbal/nutritional product Turmeric 2250mg 1 cap, Oral, Daily ibuprofen 200 mg oral capsule 400 mg = 2 cap(s), Oral, q6hr metoprolol succinate 25 mg oral TABLET extended release 25 mg = 1 tab(s), Oral, qDay Mucinex 600 mg oral tablet, extended release 600 mg = 1 tab(s), Oral, qAM omeprazole 40 mg oral delayed release capsule 40 mg = 1 cap(s), Oral, qDay rosuvastatin 20 mg oral tablet 20 mg = 1 tab(s), Oral, qHS sodium polystyrene sulfonate 15 g/60 mL oral and rectal suspension 15 gram(s) = 60 mL, Oral, qDay Trelegy Ellipta 100 mcg-62.5 mcg-25 mcg/inh inhalation powder 1 puff(s), Inhalation, qDay Ventolin HFA MDI (90 mcg/inh) inhalation aerosol 2 puff(s), PRN, Inhalation, QID Vitamin C 1000 mg oral tablet 1,000 mg = 1 tab(s), Oral, qDay Vitamin D3 125 mcg (5000 intl units) oral tablet 125 mcg = 1 tab(s), Oral, qDay Allergies NKA Social History Alcohol - Denies Alcohol Use, 08/11/2017 Use: Never., 02/19/2025 Employment/School Status: Employed. Description: Full-time, [employer] in [place] 12/11/2023 Home/Environment Living situation: Home/Independent. Safe place to go: Yes. OTher risks in environment: minimal smoke exposure. Financial concerns: No. Domestic Concerns: Denies. Primary Log Check Scaler: Self, lives with her common-law and their son Paty. Lives In: [facility] home. Current Home Treatments None. Professional Skilled Services or Special Community Resources None. Spouse Name: Common-law , Paty Case. Marital Status: Unmarried., 02/24/2025 Nutrition/Health Type of diet: Regular. Appetite Excellent. Eating Difficulties None. Caffeine intake amount: 4-5 cups of coffee daily., 02/19/2025 Substance Abuse - Denies Substance Abuse, 08/11/2017 Use: Never., 02/19/2025 Tobacco - No Risk, 02/24/2025 Nicotine Use: Former smoker, quit more than 30 days ago. Type: Cigarettes. Tobacco use per day: 40.Started at age: 25 Years. Stopped at age: 56 Years., 02/24/2025 Family History Cancer: Sister. Diabetes mellitus: Mother and Sister. Emphysema of lung: Brother. Esophageal cancer: Brother. Gallbladder disease: Father. HTN - Hypertension: Sister. Heart attack: Mother and Brother. Heart disease: Mother. Irritable bowel syndrome: Sister. Lung cancer: Brother. Sepsis: Father. Health Status Family Member(s) Immunizations hepatitis B adult vaccine: 0 unknown unit (10/27/21) hepatitis B adult vaccine: 0 unknown unit (05/31/21) hepatitis B adult vaccine: 0 unknown unit (04/29/21) hepatitis B vaccine: 0 unknown unit (04/29/21) pneumococcal 23-valent vaccine(Pneumovax: 0 unknown unit (05/16/18) SARS-CoV-2 mRNA (tozinameran) vaccine: 30 mcg (05/04/21) SARS-CoV-2 mRNA (tozinameran) vaccine: 0 unknown unit (01/17/21) SARS-CoV-2 mRNA (tozinameran) vaccine: 0.5 unknown unit (10/22/20) SARS-CoV-2 mRNA (tozinameran) vaccine: 0.5 unknown unit (09/30/20) tetanus-diphtheria toxoidsMUL.ORD!l71526: 0 unknown unit (09/05/16) tetanus-diphtheria toxoidsMUL.ORD!b98834: 0 unknown unit (09/04/16) tetanus/diphtheria/pertussMUL.ORD!n25926: 0.5 unknown unit (04/26/23) tetanus/diphtheria/pertussMUL.ORD!v92008: 0 unknown unit (09/05/16) zoster vaccine, inactivated: 0 unknown unit (04/11/21) zoster vaccine, inactivated: 0.5 unknown unit (01/31/21) Code Status No qualifying data available. Digitally Signed by MAURI DYER on 02/26/2025 04:20 PM Digitally Signed by RU GRIFFITH MD on 02/26/2025 04:29 PM [facility] [id number] Evaluation + Plan noteExtracted from: Title:History and Physical Author:MAURI DYER Date:02/26/25 Per 's OV note dated 5: 1. SVT (supraventricular tachycardia) Recurrent episodes of symptomatic palpitation associated with presyncope. She has had these episodes for years. Last Holter monitoring revealed episodes of narrow complex tachycardia. Longest episode was 26 beats. We discussed diagnostic and treatment options, including EP study and ablation. Medical therapy with beta-blockers also discussed. She prefers to proceed with EPS. The risks, benefits and alternatives of the ablation procedure were discussed with the patient. The risks including, but not limited to, the risks of bleeding, radiation exposure, injury to vascular, cardiac and surrounding structures, stroke, cardiac perforation, tamponade, need for emergent open heart surgery, need for pacemaker implantation, Injury to the phrenic nerve, cardiac arrest etc were discussed in detail. The patient opted to proceed with the ablation. Stop Metoprolol two days prior to ablation. Also ordered echo to rule out structural heart disease. Future Appointments Appointment Date:05/27/2025 11:00:00 AM Scheduled Provider:MAURI DYER Location:[facility] Appointment Type:CV OV Appointment Date:08/25/2025 08:00:00 AM Scheduled Provider:PATY VERONICA DO Location:[facility] Appointment Type:[facility] Annual Diagnostic Tests Pending * Complete Blood Count 03/03/25 Future Scheduled Tests Laboratory* Basic Metabolic Panel 11/09/24 * Thyroid Stimulating Hormone 08/22/25 * A1C Hemoglobin 08/22/25 * Complete Blood Count 08/22/25 * Lipid Profile 08/22/25 * Vitamin D Level 08/22/25 * Complete Metabolic Panel 08/22/25 [facility] 07-01-2025 Procedure notey [facility] Pulmonary Services/Neurology [address] [place] [address] MR#: [id number] Acct: [id number] Name: SANJUANA CALVO Rep #:[id number] : 1960 64 From: Rajesh Whatley DO Referring Dr: Carolyne Johnson SENIOR PRODUCT ANALYST-C Status: REG CLI Location: [facility] Date: Sex: F C PSN 6 Minute Walk Test 6 Minute Walk Test 6 Minute Walk Test: 6 Minute Walk Test PSN:6-Minute Walk Test Start: 01/01/25 12:45 Freq: Status: Active Protocol: RESP.6MINW Document 01/01/25 12:46 COUNT INCLUDES THE [facility] (Rec: 01/01/25 12:52 [facility]5751) 6 Minute Walk Test Date Performed 01/01/25 Time Performed 12:30 Height 5 ft 5.5 in Weight: 168 lb Weight in Pounds 168.[address]: Carolyne Johnson Assistive device None used: Pre-test Oxygen Delivery Room Air Method Pulse Ox (%) 98 Pulse Rate (60-100 76 beats/min) Dyspnea Hung Scale ( 0 0-10) Exertion Hung Scale 6 (6-20) 1st minute Oxygen Delivery Room Air Method Pulse Ox (%) 96 Pulse Rate (60-100 82 beats/min) Dyspnea Hung Scale ( 0 0-10) Number of Rests 0 Taken 2nd minute Oxygen Delivery Room Air Method Pulse Ox (%) 94 Pulse Rate (60-100 85 beats/min) Dyspnea Hung Scale ( 2 0-10) Number of Rests 0 Taken 3rd minute Oxygen Delivery Room Air Method Pulse Ox (%) 90 Pulse Rate (60-100 91 beats/min) Dyspnea Hung Scale ( 2 0-10) Number of Rests 0 Taken 4th minute Oxygen Delivery Room Air Method Pulse Ox (%) 90 Pulse Rate (60-100 93 beats/min) Dyspnea Hung Scale ( 3 0-10) Number of Rests 0 Taken Reported Symptoms Increased Work of Breathing 5th minute Oxygen Delivery Room Air Method Pulse Ox (%) 89 Pulse Rate (60-100 94 beats/min) Dyspnea Hung Scale ( 3 0-10) Number of Rests 0 Taken Reported Symptoms Increased Work of Breathing 6th minute Oxygen Delivery Room Air Method Pulse Ox (%) 89 Pulse Rate (60-100 90 beats/min) Dyspnea Hung Scale ( 3 0-10) Number of Rests 0 Taken Reported Symptoms Increased Work of Breathing Post-test Oxygen Delivery Room Air Method Pulse Ox (%) 97 Pulse Rate (60-100 80 beats/min) Dyspnea Hung Scale ( 0 0-10) Exertion Hung Scale 6 (6-20) Full Laps Walked 18 Partial Lap, Number 7 of Tiles Walked Total Distance 1069 Walked (ft) Interpretation Interpretation: The patient ambulated 1069 feet over the course of 6 minutes beginning on room air without assistive devices. Pretesting oxygen saturation was noted to be 98%on room air. With ambulation, the shira oxygen saturation was 89%. This represents a significant exertional oxygen desaturation, consistent with a pulmonary limitation to exercise tolerance. Recommendations Recommendations: There is no indication for the use of supplemental oxygen at this time. However, close interval follow-up is recommended, given the degree of oxygen desaturation noted during this study. 01/05/25 1244 O> Date _ Rajesh Whatley DO CC: ~ Date Dictated: 01/05/25 1243 Date Transcribed: 01/05/251242 Special Crimes Investigator: Dr. Rajesh Whatley, DO Signed [facility]03-06-2024 Note ORIGINAL EXAMINATION: BONE DENSITOMETRY 09/11/2023 2:36 [...] Sign Date: 09/11/2023 3:21:15 PM Ordering Provider: [facility]02-28-2024 Evaluation + Plan noteExtracted from: Title:Clinical Document Author:EDNA CHANG ate:09/04/23 [facility] ADMISSION HISTORY AN D PHYSICIAL CHIEF COMPLAINT: Colorectal cancer screening HISTORY OF PRESENT ILLNESS: Colorectal cancer screening REVIEW OF SYSTEMS: Constitutional: denies weight loss Cardiovascular:denies chest pain, palpitations Respiratory:denies shortness of breath Gastrointestinal:no abd pain Musculoskeletal: no arthralgias Skin: no rashes ACTIVE PROBLEMS: (31) Anxiety (77745907) BMI 30.0-30.9,adult (347343753) Cervical cancer screening (6114779910) Chronic bronchitis (503406484) COPD (chronic obstructive pulmonary disease) (14401036) Elevated fasting glucose (283698585) Emphysema lung (759721034) Encounter for well adult exam with abnormal findings (974306639) Family history of uterine cancer (5386552708) Former smoker (46152140) GERD (gastroesophageal reflux disease) (458267616) Immunity status testing (787993691) Immunization due (931472570) Ingrown toenail of both feet (2160541843) Lesion of cervix (749362597) Moderate persistent asthma (8522391970) Nodule of right lung (549184981) Obese (4006804318) Onychomycosis (5089761245) Organizing pneumonia (826123550) Osteopenia (831121609) Overweight (544844135) Palpitations (509675589) Plantar fasciitis, bilateral (926229849) Pleuritic pain (0024621) Rib pain (217114375) Screening due (530839342) Screening for breast cancer (946945801) Screening for cardiovascular condition (635483074) Screening for osteoporosis (302705199) Vitamin D deficiency (15277659) MEDICATIONS: Active Inpt Meds: None Active PRN [...] Date:08/21/2024 10:30:00 AM Scheduled Provider:PATY VERONICA DO Location:[facility] Appointment Type: Wellness Annual Future Scheduled Tests Radiology* MA Mammo Screening Bilateral w/ Dread 09/11/23 * BD Bone Density DEXA Axial Skeleton 09/11/23 [facility] 02-28-2024 Hospital Discharge instructions Patient Education [...] before eating solid foods. General instructions Take ypmv-def-mhuutlh and prescription medicines only as told by [...] 10/14/2016 Document Revised: 09/22/2018 Document Reviewed: 10/14/2016 [employer] Patient Education 2020 [employer]. 09/04/2023 09:24:42 Colonoscopy, Adult, Care After, Wlzm-hw-Odlq Colonoscopy, Adult, Care After This sheet gives [...] are soft and easy to digest. Take phzg-nwq-ftdyqcw or prescription medicines only as told by [...] 07/27/2011 Document Revised: 04/24/2018 Document Reviewed: 03/18/2017 [employer] Patient Education 2020 [employer]. Follow Up Care 08/30/2023 12:03:14 With:EDNA CHANG DO, Clinical Gastroenterology Address: [address] [place] [address] Gastroenterology [place], [place] [phone]- [phone] When: Unknown Comments:CALL DR CHANG WITH ANY QUESTIONS OR CONCERNS. GO TO THE EMERGENCY ROOM WITH ANY URGENT CONCERNS. NO POLYPS WERE FOUND TODAY With:PATY VERONICA DO Address: [address] [place] [phone] When: Unknown [facility] 02-28-2024 Note Discharge Instructions Thank you for allowing [facility] to assist you with your healthcare needs. The following is importantdischarge information regarding your hospital visit. Your Care Team PATY VERONICA DO, DR. Your Diagnosis CLEAN COLONOSCOPY What to do next Instructions From Your Doctor Repeat colonoscopy 8 to 10 years Scheduled Follow-Up Appointments Appointment Type When With Where Contact InformationBD Bone Density DEXA Axial Skeleton 09/11/2023 02:00 PM [facility] Radiology [phone] MA Mammogram Screening Bilateral w/ Dread 09/11/2023 02:30 PM [facility] Radiology [phone] PC Wellness Annual 08/21/2024 10:30 AM EST PATY VERONICA DO [facility] Follow Up Appointments Follow Up with EDNA CHANG DO, Clinical Gastroenterology When Why: CALL DR CHANG WITH ANY QUESTIONS OR CONCERNS. GO TO THE EMERGENCY ROOM WITH ANY URGENT CONCERNS. NO POLYPS WERE FOUND TODAY Where: [address] [facility] Gastroenterology [place], [place] [phone]- [phone] Follow Up with PATY VERONICA DO When Where: [address] [place] [address]- [phone] The Following Activity and Diet Have Been [...] as directed, instructions given by office Unchanged Misc Medication (mag well) Unchanged multivitamin (Multivitamin) 1 [...] before eating solid foods. General instructions Take vvol-ydu-sgwmdff and prescription medicines only as told by [...] 10/14/2016 Document Revised: 09/22/2018 Document Reviewed: 10/14/2016 [employer] Patient Education 2020 [employer]. Colonoscopy, Adult, Care After This sheet gives [...] are soft and easy to digest. Take jqav-atr-eayrqsg or prescription medicines only as told by [...] 07/27/2011 Document Revised: 04/24/2018 Document Reviewed: 03/18/2017 [employer] Patient Education 2020 [employer] Additional Information VACCINATE! IT SAVES LIVES! Members of the community who have not yet received the COVID-19 vaccine and would like to receive it can visit one of [facility] vaccine clinics. There are many vaccine clinic locations within the [facility]. For locations and available times, please visit [email or web address].[place].gov/. It is important to note that some COVID mobile vaccine clinics are held outdoors and may be canceled in rainy or stormy conditions. To learn more about pediatric vaccinations (ages 5-11), we invite you to visit the [facility] webpage. https://www.[facility].org/pages/9807-Qcvzo-Yxpdhjufzaq-Nyhfhlgovf-Mzzer-Vua stions.htmlTo learn more about the COVID-19 vaccine, we invite you to visit the CDC website for a list of frequently asked questions.https://www.cdc.gov/coronavirus/2019-ncov/vaccines/faq.html [facility] Patient Portal Access Instructions: Stay connected with your healthcare team and access your personal medical information anytime with the [email or web address] Patient Portal. Please follow the directions below to create your NavidPicurio account: 1.Access the email account you provided upon registration to the hospital/physician office.2.Look for an invitation email from [facility].3.Open the email and access the invitation link: AcceptInvitation to NavidPicurio.4.Fill in the required fulton to create your account. To access your account, visit [email or web address] Aortic Valvet. Click the blue button labeled Access Patient Portal and then log in with the username and password that you created in the steps above. You will be able to view your test results, lab results, a summary of your visits, upcoming appointments and more. There is also a convenient messaging option where you can send secure messages to your [email or web address]. In addition, you will have the ability to download any documents or summaries to your computer and/or send the information securely to a physician. Remember that your healthcare information is confidential, so carefully consider who you will allowto register on the [facility] [email or web address] Patient Portal for access to your information. You can also access the [employer] Patient Portal on the [facility] Anywhere ruddy. Simply click on Patient Portal and then log into your account. If you would like to receive a full copy of your medical records, please contact the [facility] Medical Records Department by calling [phone], Saturday through Saturday between 8 a.m. and [...] Call your local pharmacy or go to http://bit.ly/8C9Qs3a to find one close to you.3.Make use of household items: Use cat litter or old coffee grounds to dispose medications if other options arenot available. Mix your drugs with these household products, seal them in an airtight container andthrow it into the garbage. Call [facility]: [phone] to be sure your drugs can be [...] Care, Care After Colonoscopy, Adult, Care After, Dnll-oe-Aqis Medication Leaflets My discharge plan and instructions have been reviewed and explained to me and IDARIELA PAULA S understand my current condition and have read and understand these discharge instructions. I have received a written copy of the plan/instructions. If I have questions, I am aware that I should contact my doctor. 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 Signature: Date/Time: Relationship to Patient: Witness Name/Signature: Date/Time: [facility]02-28-2024 Anesthesiology Consult note Patient: SANJUANA CALVO [...] by LILLIE DOE on 09/04/2023 09:14 AM [facility]02-28-2024 Anesthesiology Consult note Patient: SANJUANA CALVO [...] Problem list: Medical Anxiety / SNOMED CT 16690871 / Confirmed Ingrown toenail of both feet / SNOMED CT 5162810862 / Confirmed BMI 30.0-30.9,adult / SNOMED CT 850770142 / Confirmed Cervical cancer screening / SNOMED CT 3904953838 / Confirmed Chronic bronchitis / SNOMED CT 687936486 / Confirmed COPD (chronic obstructive pulmonary disease) / SNOMED CT 41481467 / Confirmed Former smoker / SNOMED CT 85166737 / Confirmed Family history of uterine cancer / SNOMED CT 2862495347 / Confirmed GERD (gastroesophageal reflux disease) / SNOMED CT 570560261 / Confirmed Elevated fasting glucose / SNOMED CT 770248699 / Confirmed Immunization due / SNOMED CT 478249582 / Confirmed Lesion of cervix / SNOMED CT 993694992 / Confirmed Nodule of right lung / SNOMED CT 896600380 / Confirmed Moderate persistent asthma / SNOMED CT 4234315207 / Confirmed Obese / SNOMED CT 7884996826 / Confirmed Onychomycosis / SNOMED CT 4787451155 / Confirmed Organizing pneumonia / SNOMED CT 200067270 / Confirmed Osteopenia / SNOMED CT 478916963 / Confirmed Overweight / SNOMED CT 144105154 / Confirmed Palpitations / SNOMED CT 475459327 / Confirmed Screening for cardiovascular condition / SNOMED CT 213259501 / Confirmed Encounter for well adult exam with abnormal findings / SNOMED CT 796631019 / Confirmed Immunity status testing / SNOMED CT 471523489 / Confirmed Screening for breast cancer / SNOMED CT 303070987 / Confirmed Screening for osteoporosis / SNOMED CT 423877550 / Confirmed Plantar fasciitis, bilateral / SNOMED CT 806746021 / Confirmed Pleuritic pain / SNOMED CT 3890649 / Confirmed Emphysema lung / SNOMED CT 933030559 / Confirmed Rib pain / SNOMED CT 458898381 / Confirmed Screening due / SNOMED CT 789126127 / Confirmed Vitamin D deficiency / SNOMED CT 59414772 / Confirmed, Active Problems (31) Anxiety BMI [...] deficiency Histories Past Medical History: Resolved Pneumonia (480884531): Resolved. Family History: Cancer Sister Comments: 05/02/2021 9:49 PATY LINDQUIST DO uterine cancer Diabetes mellitus Mother Heart disease Mother Cancer Brother Comments: 02/21/2018 11:52 Jia Jama RN LUNG Sister Comments: 02/21/2018 11:52 Jia Jama RN STOMACH Procedure history: Colonoscopy (737102735) on 03/14/2020 at 59 Years. Lung (60509786) in 1998 at 39 Years. Comments: 03/10/2020 15:[address] PLACED 02/21/2018 11:51 Jia Jama [...] mmHg Vital Signs(last 24 hrs) Last Charted RHN524 mmHg (SEP 04 08:31) DBP65 mmHg (SEP 04 08:31) Measurements from flowsheet : Measurements 09/04/2023 8:31 EST Height 165.10 cm Admission Weight 85.0 kg [place] Body Weight 57.00 kg Admission Body Mass [...] Surgeon SN - CAt - Role Performed Youth Program Director 1 SN - CAt - Role Performed [place] [employer] Member SN - CAt - Role Performed TRANSFORMATION MANAGER 09/04/2023 8:37 EST Lactated Ringers Injection Begin Bag 1,000 mL mL 09/04/2023 8:31 EST Height 165.10 cm Admission Weight 85.0 kg [place] Body Weight 57.00 kg Admission Body Mass [...] no difficulties Skin Temperature Warm Skin Description [place], Normal for ethnicity, Dry Skin Moisture General Dry IV Present Present Neurological Symptoms Patient denies Extremity Movement Equal Characteristics of Speech Clear Level of Consciousness Alert Strength All Extremities Strong Affect/Behavior Appropriate Orientation Oriented x 4 Allergies Yes Carton Catcher On Yes Colon Prep Results Excellent Consent [...] Person #1 We May Share ANTHONY Case [phone] Designated Person #1 Relationship Significant other Privacy [...] evident Teaching Method Explanation Preferred Spoken Language Romanian Preferred Written Language Romanian Teaching Evaluation No further teaching needed Safety Brochure Information Reviewed Unable to complete Navid Bernardo Video Viewed No Information Given by Patient [...] Note-Nursing Same Day Patient History 09/04/2023 7:10 EST [place] History and Physical . Assessment and Plan [place] [employer] (ASA) physical status classification: Class III. Anesthetic Preoperative Plan Anesthetic technique: MAC. Postoperative pain management: Per surgeon. Informed consent: signed by patient. Digitally Signed by LILLIE DOE on 09/04/2023 09:04 AM [facility] Note [place] ADMISSION HISTORY AND PHYSICIAL CHIEF COMPLAINT: Colorectal cancer screening HISTORY OF PRESENT ILLNESS: Colorectal cancer screening REVIEW OF SYSTEMS: Constitutional: denies weight loss Cardiovascular:denies chest pain, palpitations Respiratory:denies shortness of breath Gastrointestinal:no abd pain Musculoskeletal: no arthralgias Skin: no rashes ACTIVE PROBLEMS: (31) Anxiety (14435534) BMI 30.0-30.9,adult (047690038) Cervical cancer screening (2088343112) Chronic bronchitis (152486857) COPD (chronic obstructive pulmonary disease) (65753946) Elevated fasting glucose (157788121) Emphysema lung (099750998) Encounter for well adult exam with abnormal findings (016419425) Family history of uterine cancer (3305016690) Former smoker (37039668) GERD (gastroesophageal reflux disease) (973801892) Immunity status testing (161119504) Immunization due (681960168) Ingrown toenail of both feet (3941809111) Lesion of cervix (284676999) Moderate persistent asthma (8300181290) Nodule of right lung (282679529) Obese (5074401904) Onychomycosis (3899173015) Organizing pneumonia (880453494) Osteopenia (629436724) Overweight (643028617) Palpitations (296524193) Plantar fasciitis, bilateral (454231419) Pleuritic pain (8126816) Rib pain (415479672) Screening due (254757932) Screening for breast cancer (365899706) Screening for cardiovascular condition (608465888) Screening for osteoporosis (695417062) Vitamin D deficiency (86982389) MEDICATIONS: Active Inpt Meds: None Active PRN [...] EDNA CHANG DO on 09/04/2023 07:11 AM [facility]23 [facility]10-26-2022 Evaluation + Plan note Diagnostic Tests Pending * Mumps Antibody 05/02/22 * Rubella Antibody 05/02/22 * Rubeola IgG Antibody 05/02/22 Future Scheduled Tests Radiology* MA Mammo Screening Bilateral w/ Dread 05/02/22 [facility] 08-06-2021 NoteHNO ID: [id number] Author: Garfield Mccann Service: ? Author Type: Metal Furniture Polisher Type: Progress Notes Filed: 02/10/2021 3:38 PM [...] [place] DATE: February 10, 2021 TIME: 3:37 [facility] Future App[facility]ments Appointment Date:05/02/2022 08:00:00 AM Scheduled Provider:PATY VERONICA DO Location:[facility] Appointment Type:PC OV [facility] Evaluation + Plan note Future Appointments Appointment Date:09/11/2023 02:00:00 PM Scheduled Provider: Location:[facility] Appointment Type:BD Bone Density DEXA Axial Skeleton Appointment Date:09/11/2023 02:30:00 PM Scheduled Provider: Location:[facility] Appointment Type:MA Mammogram Screening Bilateral w/ Dread Appointment Date:08/21/2024 10:30:00 AM Scheduled Provider:PATY VERONICA DO [facility] Type: Wellness Annual Future Scheduled Tests Radiology* MA Mammo Screening Bilateral w/ Dread 09/11/23 * BD Bone Density DEXA Axial Skeleton 09/11/23 [facility] Evaluation + Plan note Future Appointments Appointment Date:08/21/2024 10:30:00 AM Scheduled Provider:PATY VERONICA DO [facility] App[facility] Type: Wellness Annual [facility] Evaluation + Plan note Future Appointments Appointment Date:02/19/2025 09:00:00 AM Scheduled Provider:PATY VERONICA DO [facility] Appointment Type:PC OV Future Scheduled Tests Radiology* MA Mammo Screening Bilateral w/ Dread 09/07/24 [facility] evaluation + Plan note Future Appointments Appointment Date:11/09/2024 02:00:00 PM Scheduled Provider:PATY VERONICA DO [facility] Appointment Type:PC OV Appointment Date:02/19/2025 09:00:00 AM Scheduled Provider:PATY VERONICA DO Location[facility] Appointment Type:PC OV [facility] Evaluation + Plan note Future Appointments Appointment Date:02/19/2025 09:00:00 AM Scheduled Provider:PATY VERONICA DO Location[facility] Appointment Type:PC OV Future Scheduled Tests Laboratory* Basic Metabolic Panel 11/09/24 [facility] Evaluation + Plan note Future Appointments Appointment Date:03/03/2025 02:15:00 PM Scheduled Provider: Location:[facility] Appointment Type:EP Ablation RF-CARTO Appointment Date:05/27/2025 11:00:00 AM Scheduled Provider:MAURI DYER Location:[facility] Appointment Type:CV OV Appointment Date:08/25/2025 08:00:00 AM Scheduled Provider:PATY VERONICA DO [facility] Appoint[facility] Type:PC Wellness Annual Future Scheduled Tests Laboratory* Basic Metabolic Panel 11/09/24 * Thyroid Stimulating Hormone 08/22/25 * A1C Hemoglobin 08/22/25 * Complete Blood Count 08/22/25 * Lipid Profile 08/22/25 * Vitamin D Level 08/22/25 * Complete Metabolic Panel 08/22/25 [facility] evaluation noteNo assessment information available [facility] Work Phone: evaluation note* Diagnosis Onset Date Resolution Status Asthma-COPD overlap syndrome chronic Organizing pneumonia resolve d Asthma-COPD overlap syndrome chronic Smoking greater than 40 pack years chronic [facility] Work Phone: Evaluation note* Diagnosis Onset Date Resolution Status Admit Date Asthma-COPD overlap syndrome chronic February 05, 2025 8:06am Smoking greater than 40 pack years chronic February 05, 2025 8:06am [facility] Work Phone: Hospital course Narrative No data available for this section [facility] Discharge instructions No data available for this section [facility] Progress note No data available for this section [facility] Reason for referral (narrative)No reason for referral information availableWK[facility] Work Phone: Summary Purpose Family History No Family History [...] syndrome Smoking greater than 40 pack years Chief Complaint Admit Date J44.9 - Chronic obstructive pulmonary di sease, uns December 25, 2024 8:02am J44.9 - Chronic obstructive pulmonary di sease, uns January 01, 2025 12:16pm Chief Complaint Admit Date J44.9 - Chronic obstructive pulmonary di sease, uns December 25, 2024 8:02am J44.9 - Chronic obstructive pulmonary di sease, uns January 01, 2025 12:16pm J44.9 - Chronic obstructive pulmonary di sease, uns January 05, 2025 12:43pm Chief Complaint Admit Date J44.9 - Chronic obstructive pulmonary di sease, uns December 25, 2024 8:02am J44.9 - Chronic obstructive pulmonary di sease, uns January 01, 2025 12:16pm J44.9 - Chronic obstructive pulmonary di sease, uns January 05, 2025 12:43pm 7 M FU February 05, 2025 8:0 6am Reason for Visit Admit Date Asthma-COPD overlap syndrome February 05, 2025 8:06am Smoking greater than 40 pack years Augus t 2024 8:06am Additional Source Comments INFORMATION SOURCE (unrecogn ized section and content) DATE CREATED AUTHOR 08/24/2021 [facility] DATE CREATED AUTHOR AUTHOR'S ORGANIZ ATION 09/16/2023 [facility] DATE CREATED AUTHOR AUTHOR'S ORGANIZ ATION 01/31/2025 [facility] DATE CREATED AUTHOR AUTHOR'S ORGANIZ ATION 03/13/2025 [facility] DATE CREATED AUTHOR AUTHOR'S ORGANIZ ATION 05/15/2025 [facility] Care Team (unrecognized sect ion and content) Team Status: Active Member Role Status Dates Rochelle Arnold SENIOR PRODUCT ANALYST, SENIOR PRODUCT ANALYST-C Family Provider Active Dr. Paty Veronica DO [...] Inactive Member Role Status Dates Rochelle Arnold NP, SENIOR PRODUCT ANALYST-C Referring Provider Active Dr. Case Mejia MD Attending Provider Active Dr. Paty Veronica DO Primary Care Provider Active Team Status: Inactive Member Role Status Dates Dr. Paty Veronica DO Primary Care Provider, Referrin g Provider Active Gay Norton SENIOR PRODUCT ANALYST, SENIOR PRODUCT ANALYST-C Attending Provider Active Team Status: Inactive Member Role Status Dates Dr. Paty Veronica DO Primary Care Provider Active Gay Norton NP, SENIOR PRODUCT ANALYST-C Attending Provider, Referrin g Provider Active Team Status: Active Member Role/Relationship Status Dates Dr. Paty Veronica DO Primary Care Provider Active Team Status: Inactive Member Role/Relationship Status Dates Dr. Paty Veronica DO Primary Care Provider Active Start: December 25, 2024 End: December 25, 2024 LUIS Marc Attending Provider Active Start: December 25, 2024 End: December 25, 2024 Carolyne M Rufener , SENIOR PRODUCT ANALYST-C Referring Provider Active Start: December 25, 2024 End: December 25, 2024 Team Status: Active Member Role/Relationship Status Dates Dr. Paty Veronica DO Primary Care Provider Active Start: January 01, 2025 Carolyne Johnson NP-C Attending Provider Active Start: January 01, 2025 Carolyne Johnson NP-C Referring Provider Active Start: January 01, 2025 Team Status: Inactive Member Role/Relationship Status Dates Dr. Paty Veronica DO Primary Care Provider Active Start: January 01, 2025 End: January 01, 2025 Carolyne Johnson SENIOR PRODUCT ANALYST-C Attending Provider Active Start: January 01, 2025 End: January 01, 2025 Carolyne Johnson NP-C Referring Provider Active Start: January 01, 2025 End: January 01, 2025 Team Status: Active Member Role/Relationship Status Dates Dr. Paty Veronica DO Primary Care Provider Active Start: January 05, 2025 Carolyne Johnson NP-C Referring Provider Active Start: January 05, 2025 Carolyne Johnson NP-C Other Provider Active St art: January 05, 2025 Dr. Rajesh Whatley DO Attending Provider Active S tart: January 05, 2025 Team Status: Inactive Member Role/Relationship Status Dates Dr. Paty Veronica DO Primary Care Provider Active Start: February 05, 2025 End: February 05, 2025 Dr. Paty Veronica DO Referring Provider Active Start: February 05, 2025 End: February 05, 2025 Carolyne Johnson NP-C Attending Provider Active Start: February 05, 2025 End: February 05, 2025 Care Team (unrecognized sect ion and content) Care Team Personnel Name: Aston Curran PT Position: P3 Scheduling - Chopper Gun Operator Advanced Member Role: Other Name: PATY VERONICA DO Position: P4 Physician - Primary Care Member Role: Primary Care Physician Address: Address: [address] [place] [id number]- Care Team Related Persons Name: PATY CASE Address: Home [address] [place], [place] [id number] [place] Care Team Personnel Name: Aston Curran PT Position: P3 Scheduling - Chopper Gun Operator Advanced Member Role: Other Name: HALKO, PATY DO Position: P4 Physician - Primary Care Member Role: Primary Care Physician Address: Address: [address] [place] [address]- Care Team Related Persons Name: PATY CASE Address: Home [address] [place], [place] [id number] Goals (unrecognized section and content) Goals may [...] BE BASED ON THE PRIMARY CLINICAL RECORDS. [employer] [facility]. provides no warranty or guarantee of the accuracy or completeness of information in this document.
== END | disposition home or self-care (01) ==
LOC: SL 20:09
PROVIDERS: PCP Student in an Organized Health Care Education/Training Program; Referring Provider Nurse Practitioner Family; Visit Provider Nurse Practitioner Family
DX: G47.33 Obstructive sleep apnea (adult) (pediatric) (principal)
CPT/HCPCS: 95810